=== PATIENT | male | born 1975 | race Caucasian/White ===

== ENCOUNTER 2020-06-18 08:43 | Outpatient (REF) | payer BC, SELFPAY ==
[2020-06-18 09:58] LABS: MANUAL DIFF FLAG NO
[2020-06-18 10:04] LABS: Basophils Percent Auto 0.4 % (0-2); Eosinophils Absolute Auto 0.1 X10*3/uL (0.0-0.4); Eosinophils Percent Auto 1.8 % (0-4); Hemoglobin 16.7 g/dl (14.0-18.0); Imm Gran Abs Auto 0.01 X10*3/uL (0.00-0.03); Imm Gran Pct Auto 0.2 % (0.0-0.4); Lymphocytes Absolute Auto 1.8 X10*3/uL (1.2-4.9); Lymphocytes Percent Auto 35.8 % (20-40); Mean Corpuscular HGB Conc 34.1 g/dl (31.0-36.0); Mean Corpuscular Hemoglobin 28.9 pg (27.0-33.0); Mean Corpuscular Volume 84.8 fL (80-98); Mean Platelet Volume 11.3 fL (9.4-12.4); Monocytes Absolute Auto 0.4 X10*3/uL (0.1-1.2); Monocytes Percent Auto 8.2 % (2-11); Neutrophils Absolute Auto 2.6 X10*3/uL (2.0-8.3); Neutrophils Percent Auto 53.6 % (45-73); Platelet Count 220 X10*3/uL (160-400); Red Blood Count 5.78 X10*6/uL (4.60-5.80); Red Cell Distribution Width 12.7 % (11.0-16.0); White Blood Count 4.9 X10*3/uL (4.8-10.8)
[2020-06-18 10:15] LABS: Estimated Average Glucose 163 mg/dL; Hemoglobin A1c % 7.3 %
[2020-06-18 10:28] LABS: Alanine Aminotransferase 34 U/L (0-40); Albumin Level 4.3 g/dL (3.5-5.0); Alkaline Phosphatase 82 U/L (39-117); Anion Gap 13 (12-20); Aspartate Amino Transferase 19 U/L (5-37); Bilirubin Total 0.9 mg/dL (0.0-1.0); Blood Urea Nitrogen 15 mg/dL (9-16); Calcium 8.9 mg/dL (8.4-10.2); Carbon Dioxide 22 mmol/L (22-29); Chloride 108 mmol/L (96-108); Cholesterol 179 mg/dL; Estimated Glomerular Filt Rate > 60; Glucose Fasting 156 mg/dL (60-99); HDL Cholesterol 25 mg/dL; LDL Cholesterol Calculated 122 mg/dl; Potassium 4.4 mmol/l (3.3-5.1); Sodium 139 mmol/L (135-145); Total Protein 6.6 g/dL (6.5-8.0); Triglycerides 161 mg/dL
[2020-06-18 10:52] LABS: Prostate Specific Antigen 1.35 ng/mL (<0.05-4.0); Vitamin D 25-OH Total 13.2 ng/mL (>30)
[2020-06-23 11:17] LABS: Testosterone, Free 80.5 pg/mL (35.0-155.0); Testosterone, Total 371 ng/dL (250-1100)
== END 2020-06-18 08:44 | disposition home or self-care (01) ==
LOC: HO.LAB 08:43
PROVIDERS: PCP Internal Medicine Medical Oncology; Visit Provider Internal Medicine Medical Oncology
DX: E66.3 Overweight (principal); I10 Essential (primary) hypertension; R73.03 Prediabetes
CPT/HCPCS: 36415; 80053; 80061; 82306; 83036; 84153; 84402; 84403; 85025

== ENCOUNTER → 2020-08-31 15:21 | Outpatient (BNVA) | payer BC, SELFPAY | PROVIDERS: PCP Internal Medicine Medical Oncology; Visit Provider Nurse Practitioner ==

== ENCOUNTER 2020-10-08 09:25 | Outpatient (REF) | payer BC, SELFPAY ==
[2020-10-08 10:03] LABS: MANUAL DIFF FLAG NO
[2020-10-08 10:11] LABS: Basophils Percent Auto 0.4 % (0-2); Eosinophils Absolute Auto 0.1 X10*3/uL (0.0-0.4); Hemoglobin 16.5 g/dl (14.0-18.0); Imm Gran Abs Auto 0.01 X10*3/uL (0.00-0.03); Imm Gran Pct Auto 0.2 % (0.0-0.4); Lymphocytes Absolute Auto 1.9 X10*3/uL (1.2-4.9); Lymphocytes Percent Auto 39.2 % (20-40); Mean Corpuscular HGB Conc 33.7 g/dl (31.0-36.0); Mean Corpuscular Hemoglobin 28.8 pg (27.0-33.0); Mean Corpuscular Volume 85.5 fL (80-98); Mean Platelet Volume 10.6 fL (9.4-12.4); Monocytes Absolute Auto 0.4 X10*3/uL (0.1-1.2); Monocytes Percent Auto 8.6 % (2-11); Neutrophils Absolute Auto 2.4 X10*3/uL (2.0-8.3); Neutrophils Percent Auto 50.6 % (45-73); Platelet Count 237 X10*3/uL (160-400); Red Blood Count 5.73 X10*6/uL (4.60-5.80); Red Cell Distribution Width 12.6 % (11.0-16.0); White Blood Count 4.8 X10*3/uL (4.8-10.8)
[2020-10-08 10:31] LABS: Alanine Aminotransferase 32 U/L (0-40); Albumin Level 4.4 g/dL (3.5-5.0); Alkaline Phosphatase 76 U/L (39-117); Anion Gap 11 (12-20); Aspartate Amino Transferase 21 U/L (5-37); Bilirubin Total 0.7 mg/dL (0.0-1.0); Blood Urea Nitrogen 15 mg/dL (9-16); Carbon Dioxide 25 mmol/L (22-29); Chloride 109 mmol/L (96-108); Cholesterol 157 mg/dL; Estimated Average Glucose 134 mg/dL; Estimated Glomerular Filt Rate > 60; Glucose Fasting 135 mg/dL (60-99); HDL Cholesterol 28 mg/dL; Hemoglobin A1c % 6.3 %; LDL Cholesterol Calculated 98 mg/dl; Sodium 141 mmol/L (135-145); Total Protein 6.9 g/dL (6.5-8.0); Triglycerides 159 mg/dL
== END 2020-10-08 09:26 | disposition home or self-care (01) ==
LOC: HO.LAB 09:25
PROVIDERS: PCP Internal Medicine Medical Oncology; Referring Provider Nurse Practitioner; Visit Provider Internal Medicine Medical Oncology
DX: I10 Essential (primary) hypertension (principal); E66.9 Obesity, unspecified; E11.9 Type 2 diabetes mellitus without complications; K21.9 Gastro-esophageal reflux disease without esophagitis
CPT/HCPCS: 36415; 80053; 80061; 83036; 85025; 87338

== ENCOUNTER 2020-10-20 12:04 | Outpatient (REF) | payer BC, SELFPAY | END 2020-10-20 12:05 | disposition home or self-care (01) | LOC: HO.LAB 12:04 | PROVIDERS: PCP Internal Medicine Medical Oncology; Visit Provider Internal Medicine | DX: Z20.822 Contact with and (suspected) exposure to COVID-19 (principal) | CPT/HCPCS: 36415; C9803; U0003; U0005 ==

== ENCOUNTER 2021-01-11 06:08 | Outpatient (REF) | payer BC, SELFPAY ==
[2021-01-11 06:50] LABS: MANUAL DIFF FLAG NO
[2021-01-11 06:58] LABS: Basophils Percent Auto 0.3 % (0-2); Eosinophils Absolute Auto 0.1 X10*3/uL (0.0-0.4); Eosinophils Percent Auto 1.3 % (0-4); Hemoglobin 16.2 g/dl (14.0-18.0); Imm Gran Abs Auto 0.02 X10*3/uL (0.00-0.03); Imm Gran Pct Auto 0.3 % (0.0-0.4); Lymphocytes Absolute Auto 2.5 X10*3/uL (1.2-4.9); Lymphocytes Percent Auto 38.8 % (20-40); Mean Corpuscular HGB Conc 33.8 g/dl (31.0-36.0); Mean Corpuscular Hemoglobin 28.6 pg (27.0-33.0); Mean Corpuscular Volume 84.7 fL (80-98); Mean Platelet Volume 11.1 fL (9.4-12.4); Monocytes Absolute Auto 0.6 X10*3/uL (0.1-1.2); Monocytes Percent Auto 8.7 % (2-11); Neutrophils Absolute Auto 3.2 X10*3/uL (2.0-8.3); Neutrophils Percent Auto 50.6 % (45-73); Platelet Count 229 X10*3/uL (160-400); Red Blood Count 5.67 X10*6/uL (4.60-5.80); White Blood Count 6.3 X10*3/uL (4.8-10.8)
[2021-01-11 07:11] LABS: Alanine Aminotransferase 32 U/L (0-40); Albumin Level 4.2 g/dL (3.5-5.0); Alkaline Phosphatase 78 U/L (39-117); Anion Gap 10 (12-20); Aspartate Amino Transferase 20 U/L (5-37); Bilirubin Total 0.6 mg/dL (0.0-1.0); Blood Urea Nitrogen 14 mg/dL (9-16); Calcium 9.1 mg/dL (8.4-10.2); Carbon Dioxide 26 mmol/L (22-29); Chloride 108 mmol/L (96-108); Cholesterol 150 mg/dL; Estimated Glomerular Filt Rate > 60; Glucose Fasting 164 mg/dL (60-99); HDL Cholesterol 27 mg/dL; LDL Cholesterol Calculated 79 mg/dl; Potassium 4.1 mmol/L (3.3-5.1); Sodium 140 mmol/L (135-145); Total Protein 6.4 g/dL (6.5-8.0); Triglycerides 221 mg/dL
[2021-01-11 07:13] LABS: Estimated Average Glucose 148 mg/dL; Hemoglobin A1c % 6.8 %
== END 2021-01-11 06:09 | disposition home or self-care (01) ==
LOC: HO.LAB 06:08
PROVIDERS: PCP Internal Medicine Medical Oncology; Visit Provider Internal Medicine Medical Oncology
DX: I10 Essential (primary) hypertension (principal); E66.9 Obesity, unspecified; E11.9 Type 2 diabetes mellitus without complications
CPT/HCPCS: 36415; 80053; 80061; 83036; 85025

== ENCOUNTER 2021-04-15 07:59 | Outpatient (REF) | payer BC, SELFPAY ==
[2021-04-15 08:45] LABS: MANUAL DIFF FLAG NO
[2021-04-15 09:00] LABS: Basophils Percent Auto 0.2 % (0-2); Eosinophils Absolute Auto 0.1 X10*3/uL (0.0-0.4); Eosinophils Percent Auto 1.5 % (0-4); Hematocrit 48.2 % (42-52); Hemoglobin 16.2 g/dl (14.0-18.0); Imm Gran Abs Auto 0.01 X10*3/uL (0.00-0.03); Imm Gran Pct Auto 0.2 % (0.0-0.4); Lymphocytes Absolute Auto 1.9 X10*3/uL (1.2-4.9); Lymphocytes Percent Auto 40.2 % (20-40); Mean Corpuscular HGB Conc 33.6 g/dl (31.0-36.0); Mean Corpuscular Hemoglobin 28.7 pg (27.0-33.0); Mean Corpuscular Volume 85.5 fL (80-98); Monocytes Absolute Auto 0.4 X10*3/uL (0.1-1.2); Monocytes Percent Auto 9.2 % (2-11); Neutrophils Absolute Auto 2.3 X10*3/uL (2.0-8.3); Neutrophils Percent Auto 48.7 % (45-73); Platelet Count 220 X10*3/uL (160-400); Red Blood Count 5.64 X10*6/uL (4.60-5.80); Red Cell Distribution Width 12.8 % (11.0-16.0); White Blood Count 4.8 X10*3/uL (4.8-10.8)
[2021-04-15 09:19] LABS: Estimated Average Glucose 180 mg/dL; Hemoglobin A1c % 7.9 %
[2021-04-15 09:30] LABS: Alanine Aminotransferase 42 U/L (0-40); Albumin Level 4.3 g/dL (3.5-5.0); Alkaline Phosphatase 79 U/L (39-117); Anion Gap 10 (12-20); Aspartate Amino Transferase 22 U/L (5-37); Bilirubin Total 0.8 mg/dL (0.0-1.0); Blood Urea Nitrogen 17 mg/dL (9-16); Calcium 9.2 mg/dL (8.4-10.2); Carbon Dioxide 24 mmol/L (22-29); Chloride 110 mmol/L (96-108); Cholesterol 157 mg/dL; Estimated Glomerular Filt Rate > 60; Glucose Fasting 175 mg/dL (60-99); HDL Cholesterol 28 mg/dL; LDL Cholesterol Calculated 94 mg/dl; Potassium 4.3 mmol/L (3.3-5.1); Sodium 140 mmol/L (135-145); Total Protein 6.7 g/dL (6.5-8.0); Triglycerides 178 mg/dL
[2021-04-15 09:44] LABS: Prostate Specific Antigen 0.97 ng/mL (<0.05-4.0)
[2021-04-15 16:49] LABS: Creatinine Urine 182.87 mg/dL; Microalbum/Creatinine Ratio Ur 3.2 ug/mg cr
== END 2021-04-15 08:00 | disposition home or self-care (01) ==
LOC: HO.LAB 07:59
PROVIDERS: PCP Internal Medicine Medical Oncology; Visit Provider Internal Medicine Medical Oncology
DX: Z12.5 Encounter for screening for malignant neoplasm of prostate (principal); E11.9 Type 2 diabetes mellitus without complications; N40.0 Benign prostatic hyperplasia without lower urinary tract symptoms; I10 Essential (primary) hypertension
CPT/HCPCS: 36415; 80053; 80061; 82043; 83036; 84153; 85025

== ENCOUNTER → 2021-05-20 14:21 | Outpatient (BNVA) | payer BC, SELFPAY | PROVIDERS: PCP Internal Medicine Medical Oncology; Visit Provider Nurse Practitioner ==

== ENCOUNTER 2021-08-19 06:38 | Outpatient (REF) | payer BC, SELFPAY ==
[2021-08-19 06:43] LABS: MANUAL DIFF FLAG NO
[2021-08-19 07:49] LABS: Basophils Percent Auto 0.4 % (0-2); Eosinophils Absolute Auto 0.1 X10*3/uL (0.0-0.4); Eosinophils Percent Auto 1.6 % (0-4); Hematocrit 47.6 % (42.0-52.0); Hemoglobin 15.8 g/dl (14.0-18.0); Imm Gran Abs Auto 0.02 X10*3/uL (0.00-0.03); Imm Gran Pct Auto 0.4 % (0.0-0.4); Lymphocytes Absolute Auto 2.1 X10*3/uL (1.2-4.9); Lymphocytes Percent Auto 36.9 % (20-40); Mean Corpuscular HGB Conc 33.2 g/dl (31.0-36.0); Mean Corpuscular Hemoglobin 28.7 pg (27.0-33.0); Mean Corpuscular Volume 86.4 fL (80.0-98.0); Monocytes Absolute Auto 0.5 X10*3/uL (0.1-1.2); Neutrophils Percent Auto 52.7 % (45-73); Platelet Count 239 X10*3/uL (160-400); Red Blood Count 5.51 X10*6/uL (4.60-5.80); Red Cell Distribution Width 12.9 % (11.0-16.0); White Blood Count 5.7 X10*3/uL (4.8-10.8)
[2021-08-19 08:24] LABS: Estimated Average Glucose 197 mg/dL; Hemoglobin A1c % 8.5 %
[2021-08-19 08:25] LABS: Creatinine Urine 175.47 mg/dL; Microalbum/Creatinine Ratio Ur 3.4 ug/mg cr
[2021-08-19 08:30] LABS: Alanine Aminotransferase 39 U/L (0-40); Albumin Level 4.2 g/dL (3.5-5.0); Alkaline Phosphatase 81 U/L (39-117); Anion Gap 11 (12-20); Aspartate Amino Transferase 20 U/L (5-37); Bilirubin Total 0.3 mg/dL (0.0-1.0); Blood Urea Nitrogen 15 mg/dL (9-16); Calcium 9.3 mg/dL (8.4-10.2); Carbon Dioxide 25 mmol/L (22-29); Chloride 108 mmol/L (96-108); Cholesterol 155 mg/dL; Estimated Glomerular Filt Rate > 60; Glucose Fasting 208 mg/dL (60-99); HDL Cholesterol 28 mg/dL; LDL Cholesterol Calculated 79 mg/dl; Potassium 4.3 mmol/L (3.3-5.1); Sodium 140 mmol/L (135-145); Total Protein 6.6 g/dL (6.5-8.0); Triglycerides 244 mg/dL
== END 2021-08-19 06:39 | disposition home or self-care (01) ==
LOC: HO.LAB 06:38
PROVIDERS: PCP Internal Medicine Medical Oncology; Visit Provider Internal Medicine Medical Oncology
DX: I10 Essential (primary) hypertension (principal); E66.9 Obesity, unspecified; E11.9 Type 2 diabetes mellitus without complications
CPT/HCPCS: 36415; 80053; 80061; 82043; 83036; 85025

== ENCOUNTER 2021-08-30 09:10 | Day surgery (SDC) | payer BC, SELFPAY ==
--- NOTE | 2021-08-29 12:50 | HO.ANESPROP2 ---
Documented by User: Rain Hemphill NP 08/29/21 12:51 HPI - Anesthesia Eval Consult details Narrative: 45yo M for Upper Endoscopy PMF Active Problems Active Problems: All Active Problems (Updated 08/24/21 @ 10:19 by Pau Peralta RN) GERD (gastroesophageal reflux disease) (Acute) Past Medical History Medical History (Updated 08/24/21 @ 10:19 by Pau Peralta RN) Diabetes Elevated cholesterol GERD (gastroesophageal reflux disease) Family History Family History Family/Other No significant medical problems Surgical History Surgical History (Updated 08/24/21 @ 10:22 by Pau Peralta RN) History of ankle surgery Hx of cholecystectomy Hx of knee surgery Social History Social History Alcohol intake: current Alcohol intake frequency: holidays/special occasions only Patient Tobacco Use Status: Current everyday Tobacco user Tobacco use type: Cigarette Cigarettes Per Day: 10 Meds Allergies Allergy/AdvReac Type Severity Reaction Status Date / Time No Known Allergies Allergy Verified 05/20/21 14:32 [No Known Allergies*] Home Medications Medication Instructions Recorded Confirmed Last Taken Type atorvastatin 10 mg tablet 10 mg PO DAILY 05/20/21 08/24/21 Unknown History glyburide 5 mg tablet 5 mg PO BID 05/20/21 08/24/21 Unknown History lisinopril 20 mg tablet 20 mg PO DAILY 05/20/21 08/24/21 Unknown History loratadine 10 mg tablet (Claritin) 10 mg PO DAILY 05/20/21 08/24/21 Unknown History metformin 1,000 mg tablet 1,000 mg PO DAILY 05/20/21 08/24/21 Unknown History sildenafil 100 mg tablet mg PO DIRECTED 05/20/21 Unknown History Exam Exam Date and Time: August 29, 2021 1250 Pertinent Lab Results Pertinent Lab Results: Laboratory Tests 08/19/21 08/19/21 06:42 06:42 WBC 5.7 Hgb 15.8 Hct 47.6 Plt Count 239 Sodium 140 Potassium 4.3 Chloride 108 Carbon Dioxide 25 BUN 15 Creatinine 1.04 Assessment and Plan Assessment Anesthesia Assessment: Chart Reviewed Documented by User: Jose Mcdaniel MD 08/30/21 14:32 [facility] Past Medical History Medical History (Updated 08/24/21 @ 10:19 by Pau Peralta RN) Diabetes Elevated cholesterol GERD (gastroesophageal reflux disease) Family History Family History Family/Other No significant medical problems Family history of problems with anesthesia: No Surgical History Surgical History (Updated 08/24/21 @ 10:22 by Pau Peralta RN) History of ankle surgery Hx of cholecystectomy Hx of knee surgery History of Problems with Anesthesia: No Social History Social History Alcohol intake: current Alcohol intake frequency: holidays/special occasions only Patient Tobacco Use Status: Current everyday Tobacco user Tobacco use type: Cigarette Cigarettes Per Day: 10 Meds Allergies Allergy/AdvReac Type Severity Reaction Status Date / Time No Known Allergies Allergy Verified 05/20/21 14:32 [No Known Allergies*] Home Medications Medication Instructions Recorded Confirmed Last Taken Type atorvastatin 10 mg tablet 10 mg PO DAILY 05/20/21 08/24/21 Unknown History glyburide 5 mg tablet 5 mg PO BID 05/20/21 08/24/21 Unknown History lisinopril 20 mg tablet 20 mg PO DAILY 05/20/21 08/24/21 Unknown History loratadine 10 mg tablet (Claritin) 10 mg PO DAILY 05/20/21 08/24/21 Unknown History metformin 1,000 mg tablet 1,000 mg PO DAILY 05/20/21 08/24/21 Unknown History sildenafil 100 mg tablet mg PO DIRECTED 05/20/21 Unknown History Exam Airway Mallampati Class: III TM Dist: >3cm Neck ROM: Full Loose/Missing/Broken Teeth: Yes Assessment and Plan Assessment Anesthesia Assessment: Anesthesia Plan Discussed Final Anesthetic Review Family History of Problems with Anesthesia: No History of Problems with Anesthesia: No NPO: Yes ASA Class: II Final Preanesthetic Review: No Changes in Pt Med Stat, Meds/Allgs Chart Reviewed, Consent Obtained/Reviewed and Anes Risks/Benef Reviewed Patient Risk: Low Procedure Risk: Low Anesthetic Plan Anesthetic Plan: MAC: Disposition: Standard PACU
[2021-08-30 09:19] VITALS: BP 124/78; PULSE 74; RESP 18; TEMP 36.6; O2SAT 98; BMI 36.0
[2021-08-30 09:25] LABS: Glucose, Whole Blood 139 mg/dL (60-115)
--- NOTE | 2021-08-30 09:32 | MHC.SHP ---
Pre-Procedural Eval Section A Date of Service: 08/30/21 Section B Chief Complaint: reflux disease Relevant Family History (Specify if Yes): No Relevant Social History: Tobacco Use Present Medications: see Short Stay Collaborative assessment Medical History: Significant History (Diabetes Elevated cholesterol GERD (gastroesophageal reflux disease)) History of Previous Operations: Relevant previous surgery/procedure and date(s) (History of ankle surgery Hx of cholecystectomy Hx of knee surgery) Allergies: Allergies Allergy/AdvReac Type Severity Reaction Status Date / Time No Known Allergies Allergy Verified 05/20/21 14:32 [No Known Allergies*] Review of Systems Sugical H&P ROS: Negative: Constitution, Cardiovascular, Respiratory, Neurological, Psychiatric, Hem-Onc, Allergic/Immunologic, Gastrointestinal, Genitourinary, Musculoskeletal, Integumentary, Endocrine and Eyes/Ears/Nose/Throat Exam Surgical H&P Exam: Normal: HEENT, Normal: Heart, Normal: Lungs, Normal: Extremities, Normal: Abdomen, Normal: Skin and Normal: Neurological Plan Diagnosis/Plan: Unchanged I have reviewed the history and physical and performed a pertinent physical examination on my patient. No changes have occurred unless specified.
[2021-08-30] MEDS: Lactated Ringers 1,000 ML 100 ML IVCONT (09:35)
--- NOTE | 2021-08-30 10:33 | PM.OP ---
Brief Operative Note Date of Service: 08/30/21 Pre-op diagnosis: reflux Post-op diagnosis: same Procedure: see op note Surgeon: Fanny Garcia MD Anesthesia: MAC Was an Camera Systems Engineer used for this Procedure?: No Estimated blood loss (mL): 0 Condition: stable Disposition: PACU
--- NOTE | 2021-08-30 10:33 | W.PM.OPN ---
Operative Note Operative Note Date of Service: 08/30/21 Narrative: Procedure Description: EGD FLEXIBLE TRANSORAL UPPER GASTROINTESTINAL ENDOSCOPY UPPER ENDOSCOPY Consent: Indications for the procedure and potential complications of bleeding, perforation, reaction to medications and missed diagnosis were discussed with the patient and informed consent was obtained. Instrument: Olympus GIF H 190 J mid size upper endoscope Monitoring: Vital signs and clinical assessment, continuous EKG monitoring, Pulse oximetry, Carbon Dioxide monitoring and blood pressure monitoring were done throughout the procedure. Procedure: The patient was placed in the left lateral decubitis position and pre-procedure medications were administered and a bite block was placed. The endoscope was inserted into the mouth and advanced under direct vision to the third part of duodenum. A careful inspection was made as the upper endoscope was withdrawn including a retroflexed examination of the proximal stomach; Findings and interventions are described below. Findings: Larynx:normal Esophagus: GE junction at 40 cm, diaphragm hiatus at 40 cm, LA grade C esophagitis with boggy and swollen GEJ with streaky erosions in lower esophagus --bx taken of GEJ and random esophagus in separate jars . small esophageal inlet patch noted. Stomach: Patchy gastric erythema. Biopsies were obtained. Grade 2 flap valve on retroflexed examination of the cardia. Duodenum: Patchy erythema in bulb and descending duodenum, bx taken Intervention: Biopsies as noted above Impression/Findings: LA grade C erosive esophagitis esophageal inlet patch gastritis duodenitis PLAN: smoking cessation reflux precautions trial of PPI if he agrees repeat EGD in 3-6 months after being on PPI if he agrees
[2021-08-30 10:40] VITALS: BP 107/63; PULSE 73; RESP 16; TEMP 36.4; O2SAT 99
[2021-08-30 10:55] VITALS: BP 111/66; PULSE 85; RESP 16; TEMP 36.4; O2SAT 97
== END 2021-08-30 12:15 | disposition home or self-care (01) ==
PROVIDERS: PCP Internal Medicine Medical Oncology; Visit Provider Internal Medicine Gastroenterology
PROC: 0DJ08ZZ Inspection of Upper Intestinal Tract, Via Natural or Artificial Opening Endoscopic (ICD-10-PCS; CPT 43235; principal; 2021-08-30 11:50)
DX: K21.9 Gastro-esophageal reflux disease without esophagitis (principal); K20.80 Other esophagitis without bleeding; K29.50 Unspecified chronic gastritis without bleeding; K29.80 Duodenitis without bleeding; K44.9 Diaphragmatic hernia without obstruction or gangrene; Q39.8 Other congenital malformations of esophagus; E78.00 Pure hypercholesterolemia, unspecified; E11.9 Type 2 diabetes mellitus without complications; Z79.84 Long term (current) use of oral hypoglycemic drugs; Z79.899 Other long term (current) drug therapy; Z90.49 Acquired absence of other specified parts of digestive tract; F17.210 Nicotine dependence, cigarettes, uncomplicated
CPT/HCPCS: 43239; 82947; 88305; 88342

== ENCOUNTER → 2021-09-13 14:26 | Outpatient (BNVA) | payer BC, SELFPAY | PROVIDERS: PCP Internal Medicine Medical Oncology; Visit Provider Nurse Practitioner ==

== ENCOUNTER 2021-10-21 08:47 | Outpatient (REF) | payer BC, SELFPAY ==
[2021-10-21 09:07] LABS: MANUAL DIFF FLAG NO
[2021-10-21 09:20] LABS: Basophils Percent Auto 0.4 % (0-2); Eosinophils Percent Auto 0.8 % (0-4); Hematocrit 48.4 % (42.0-52.0); Imm Gran Abs Auto 0.01 X10*3/uL (0.00-0.03); Imm Gran Pct Auto 0.2 % (0.0-0.4); Lymphocytes Absolute Auto 1.9 X10*3/uL (1.2-4.9); Lymphocytes Percent Auto 40.3 % (20-40); Mean Corpuscular HGB Conc 33.1 g/dl (31.0-36.0); Mean Corpuscular Hemoglobin 28.2 pg (27.0-33.0); Mean Corpuscular Volume 85.4 fL (80.0-98.0); Mean Platelet Volume 10.5 fL (9.4-12.4); Monocytes Absolute Auto 0.4 X10*3/uL (0.1-1.2); Monocytes Percent Auto 7.8 % (2-11); Neutrophils Absolute Auto 2.4 x10*3/uL (2.0-8.3); Neutrophils Percent Auto 50.5 % (45-73); Platelet Count 235 X10*3/uL (160-400); Red Blood Count 5.67 X10*6/uL (4.60-5.80); Red Cell Distribution Width 12.8 % (11.0-16.0); White Blood Count 4.8 X10*3/uL (4.8-10.8)
[2021-10-21 09:34] LABS: Estimated Average Glucose 171 mg/dL; Hemoglobin A1c % 7.6 %
[2021-10-21 09:52] LABS: Alanine Aminotransferase 42 U/L (0-40); Albumin Level 4.3 g/dL (3.5-5.0); Alkaline Phosphatase 74 U/L (39-117); Anion Gap 12 (12-20); Aspartate Amino Transferase 20 U/L (5-37); Bilirubin Total 0.7 mg/dL (0.0-1.0); Blood Urea Nitrogen 17 mg/dL (9-16); Calcium 9.5 mg/dL (8.4-10.2); Carbon Dioxide 24 mmol/L (22-29); Chloride 109 mmol/L (96-108); Cholesterol 166 mg/dL; Estimated Glomerular Filt Rate > 60; Glucose Random 193 mg/dL (60-115); HDL Cholesterol 25 mg/dL; LDL Cholesterol Calculated 108 mg/dl; Potassium 4.5 mmol/L (3.3-5.1); Sodium 140 mmol/L (135-145); Total Protein 6.9 g/dL (6.5-8.0); Triglycerides 167 mg/dL
== END 2021-10-21 08:48 | disposition home or self-care (01) ==
LOC: HO.LAB 08:47
PROVIDERS: PCP Internal Medicine Medical Oncology; Visit Provider Internal Medicine Medical Oncology
DX: I10 Essential (primary) hypertension (principal); E66.9 Obesity, unspecified; E11.9 Type 2 diabetes mellitus without complications
CPT/HCPCS: 36415; 80053; 80061; 83036; 85025

== ENCOUNTER → 2021-12-13 14:51 | Outpatient (BNVA) | payer BC, SELFPAY | PROVIDERS: PCP Internal Medicine Medical Oncology; Visit Provider Nurse Practitioner | DX: K21.9 Gastro-esophageal reflux disease without esophagitis (principal) ==

== ENCOUNTER 2022-02-24 11:22 | Outpatient (REF) | payer BC, SELFPAY ==
[2022-02-24 11:34] LABS: MANUAL DIFF FLAG NO
[2022-02-24 12:08] LABS: Basophils Percent Auto 0.4 % (0-2); Eosinophils Absolute Auto 0.1 X10*3/uL (0.0-0.4); Eosinophils Percent Auto 2.2 % (0-4); Hematocrit 46.5 % (42.0-52.0); Hemoglobin 15.9 g/dl (14.0-18.0); Imm Gran Abs Auto 0.01 X10*3/uL (0.00-0.03); Imm Gran Pct Auto 0.2 % (0.0-0.4); Lymphocytes Percent Auto 44.7 % (20-40); Mean Corpuscular HGB Conc 34.2 g/dl (31.0-36.0); Mean Corpuscular Hemoglobin 28.5 pg (27.0-33.0); Mean Corpuscular Volume 83.3 fL (80.0-98.0); Mean Platelet Volume 10.7 fL (9.4-12.4); Monocytes Absolute Auto 0.4 X10*3/uL (0.1-1.2); Monocytes Percent Auto 8.3 % (2-11); Neutrophils Percent Auto 44.2 % (45-73); Platelet Count 238 X10*3/uL (160-400); Red Blood Count 5.58 X10*6/uL (4.60-5.80); White Blood Count 4.5 X10*3/uL (4.8-10.8)
[2022-02-24 12:18] LABS: Estimated Average Glucose 169 mg/dL; Hemoglobin A1c % 7.5 %
[2022-02-24 12:31] LABS: Alanine Aminotransferase 76 U/L (0-40); Albumin Level 4.2 g/dL (3.5-5.0); Alkaline Phosphatase 75 U/L (39-117); Anion Gap 13 (12-20); Aspartate Amino Transferase 33 U/L (5-37); Bilirubin Total 0.7 mg/dL (0.0-1.0); Blood Urea Nitrogen 15 mg/dL (9-16); Calcium 8.9 mg/dL (8.4-10.2); Carbon Dioxide 24 mmol/L (22-29); Chloride 105 mmol/L (96-108); Cholesterol 150 mg/dL; Estimated Glomerular Filt Rate > 60; Glucose Fasting 135 mg/dL (60-99); HDL Cholesterol 26 mg/dL; LDL Cholesterol Calculated 85 mg/dl; Potassium 4.4 mmol/L (3.3-5.1); Sodium 138 mmol/L (135-145); Total Protein 6.7 g/dL (6.5-8.0); Triglycerides 197 mg/dL
[2022-02-24 15:12] LABS: Microalbum/Creatinine Ratio Ur 5.9 ug/mg cr
== END 2022-02-24 11:23 | disposition home or self-care (01) ==
LOC: HO.LAB 11:22
PROVIDERS: PCP Internal Medicine Medical Oncology; Visit Provider Internal Medicine Medical Oncology
DX: I10 Essential (primary) hypertension (principal); E11.9 Type 2 diabetes mellitus without complications
CPT/HCPCS: 36415; 80053; 80061; 82043; 83036; 85025

== ENCOUNTER 2022-04-11 08:48 | Day surgery (SDC) | payer BC, OTHER, SELFPAY ==
[2022-04-05 19:35] VITALS: BMI 35.4
--- NOTE | 2022-04-10 11:46 | P.CONAN_ITS ---
Documented by User: Rain Hemphill NP 04/10/22 11:52 HPI - Anesthesia Eval Consult details Narrative: 46yo M for Upper Endoscopy s/p EGD 08/2021 with MAC COUNT INCLUDES [facility] Active Problems Active Problems: All Active Problems (Updated 04/05/22 @ 19:35 by Demetra Acosta RN) GERD (gastroesophageal reflux disease) (Acute) Erosive esophagitis (Acute) Past Medical History Medical History Diabetes Elevated cholesterol GERD (gastroesophageal reflux disease) Hypertension Family History Family History Family/Other No significant medical problems Family history of problems with anesthesia: No Surgical History Surgical History History of ankle surgery Hx of cholecystectomy Hx of knee surgery History of Problems with Anesthesia: No Social History Social History Alcohol intake: current Alcohol intake frequency: holidays/special occasions only Patient Tobacco Use Status: Current everyday Tobacco user Tobacco use type: Cigarette Cigarette Packs Per Day: 0.5 Cigarettes Per Day: 10.0 Years Smoked: 28 Smoked in Last 30 Days: Yes Use of substances other than those prescribed or required for medical reasons: No Are you DNR?: No Advance Directives: No Advance Directives Information Provided: Yes Advance Directives on File: No Recently lost weight without trying: No Nutrition Risks: No Nutritional Risk Meds Allergies Allergy/AdvReac Type Severity Reaction Status Date / Time No Known Allergies Allergy Verified 04/11/22 09:16 [No Known Allergies*] Home Medications Medication Instructions Recorded Confirmed Last Taken Type atorvastatin 10 mg tablet 10 mg PO DAILY 05/20/21 04/05/22 Unknown History lisinopril 20 mg tablet 20 mg PO DAILY 05/20/21 04/05/22 Unknown History loratadine 10 mg tablet (Claritin) 10 mg PO DAILY 05/20/21 04/05/22 Unknown History ciclopirox 0.77 % topical cream 1 appl topical DAILY 12/13/21 04/05/22 Unknown History glyburide 5 mg tablet 5 mg PO BID 12/13/21 04/05/22 Unknown History tamsulosin 0.4 mg capsule 0.4 mg PO DAILY 12/13/21 04/05/22 Unknown History dapagliflozin 5 mg-metformin ER 1 tab PO DAILY 04/05/22 04/05/22 Unknown History 1,000 mg tablet,extended release 24hr (Xigduo XR) tadalafil 5 mg tablet (Cialis) 5 mg PO DAILY 04/05/22 04/05/22 Unknown History Exam Exam Date and Time: April 10, 2022 1146 Height,Weight and Vital Signs: Height 5 ft 7 in Weight 102.512 kg Pertinent Lab Results Pertinent Lab Results: Laboratory Tests 02/24/22 02/24/22 11:33 11:33 WBC 4.5 L Hgb 15.9 Hct 46.5 Plt Count 238 Sodium 138 Potassium 4.4 Chloride 105 Carbon Dioxide 24 BUN 15 Creatinine 0.93 Assessment and Plan Assessment Anesthesia Assessment: Chart Reviewed Final Anesthetic Review Family History of Problems with Anesthesia: No History of Problems with Anesthesia: No Documented by User: Viji Rasmussen MD 04/11/22 09:50 PMFSH Past Medical History Medical History Diabetes Elevated cholesterol GERD (gastroesophageal reflux disease) Hypertension Family History Family History Family/Other No significant medical problems Surgical History Surgical History History of ankle surgery Hx of cholecystectomy Hx of knee surgery Social History Social History Alcohol intake: current Alcohol intake frequency: holidays/special occasions only Patient Tobacco Use Status: Current everyday Tobacco user Tobacco use type: Cigarette Cigarette Packs Per Day: 0.5 Cigarettes Per Day: 10.0 Years Smoked: 28 Smoked in Last 30 Days: Yes Use of substances other than those prescribed or required for medical reasons: No Are you DNR?: No Advance Directives: No Advance Directives Information Provided: Yes Advance Directives on File: No Recently lost weight without trying: No Nutrition Risks: No Nutritional Risk Meds Allergies Allergy/AdvReac Type Severity Reaction Status Date / Time No Known Allergies Allergy Verified 04/11/22 09:16 [No Known Allergies*] Home Medications Medication Instructions Recorded Confirmed Last Taken Type atorvastatin 10 mg tablet 10 mg PO DAILY 05/20/21 04/05/22 Unknown History lisinopril 20 mg tablet 20 mg PO DAILY 05/20/21 04/05/22 Unknown History loratadine 10 mg tablet (Claritin) 10 mg PO DAILY 05/20/21 04/05/22 Unknown History ciclopirox 0.77 % topical cream 1 appl topical DAILY 12/13/21 04/05/22 Unknown History glyburide 5 mg tablet 5 mg PO BID 12/13/21 04/05/22 Unknown History tamsulosin 0.4 mg capsule 0.4 mg PO DAILY 12/13/21 04/05/22 Unknown History dapagliflozin 5 mg-metformin ER 1 tab PO DAILY 04/05/22 04/05/22 Unknown History 1,000 mg tablet,extended release 24hr (Xigduo XR) tadalafil 5 mg tablet (Cialis) 5 mg PO DAILY 04/05/22 04/05/22 Unknown History Exam Airway Mallampati Class: II TM Dist: >3cm Neck ROM: Full Loose/Missing/Broken Teeth: No Heart: RRR Lungs: CTA Assessment and Plan Assessment Anesthesia Assessment: Anesthesia Plan Discussed Final Anesthetic Review ASA Class: II Final Preanesthetic Review: Meds/Allgs Chart Reviewed, Consent Obtained/Reviewed and Anes Risks/Benef Reviewed Patient Risk: Low Procedure Risk: Intermediate Anesthetic Plan Anesthetic Plan: MAC: Disposition: Standard PACU
[2022-04-11] MEDS: Lactated Ringers 1,000 ML 100 ML IVCONT (09:31)
--- NOTE | 2022-04-11 09:33 | MHC.SHP ---
Pre-Procedural Eval Section A Date of Service: 04/11/22 Section B Chief Complaint: History of esophagitis Details of Present Illness: Hx of grade C esophagitis in Aug 2021. Here for follow up EGD to rule out underlying Mai's. Pt continues to smoke 0.5PPD. Does not take PPI. States one his doctors told him to take Pepcid for his esophagitis. Relevant Social History: Tobacco Use Medical History: Significant History (Diabetes, GERD, HTN ) History of Previous Operations: Relevant previous surgery/procedure and date(s) (History of ankle surgery Hx of cholecystectomy Hx of knee surgery) Allergies: Allergies Allergy/AdvReac Type Severity Reaction Status Date / Time No Known Allergies Allergy Verified 04/11/22 09:16 [No Known Allergies*] Review of Systems Review of Systems Comment: 10 point ROS negative unless noted above Exam Surgical H&P Exam: Normal: HEENT, Normal: Heart, Normal: Lungs, Normal: Extremities, Normal: Abdomen, Normal: Skin and Normal: Neurological Plan Diagnosis/Plan: Unchanged I have reviewed the history and physical and performed a pertinent physical examination on my patient. No changes have occurred unless specified.
[2022-04-11 09:34] LABS: Glucose, Whole Blood 151 mg/dL (60-115)
[2022-04-11 09:38] VITALS: BP 118/81; PULSE 72; RESP 18; TEMP 36.7; O2SAT 98
--- NOTE | 2022-04-11 09:49 | W.PM.OPN ---
Operative Note Operative Note Date of Service: 04/11/22 Narrative: Procedure: Esophagogastroduodenoscopy Endoscopist: Nena Riley MD Indication: Esophagitis Anesthesia Provider: Dr Viji Rasmussen MD Anesthesia Type: MAC EGD Procedure:?? The procedure, indications, preparation and potential complications were reviewed with the patient, who indicated understanding and gave written informed consent to proceed. A physical exam was performed. The endoscope was introduced through the mouth, and advanced to the second part of duodenum. The mucosa was carefully examined on slow withdrawal of the endoscope. The patient tolerated the procedure well. There were no immediate complications.? EGD Findings:? ? Esophagus:? Linear ulcerations from 35 cm to 39 cm that do not extend between the tops of mucosal folds were seen. No active bleeding. The Z line was at 39 cm. THE GEJ junction was at 40 cm. There were two nodularites noted at 39 cm with overlying villous changes examined in white light and NBI. Cold forceps biopsies were taken from the nodular region. ? Stomach:? Normal mucosa was noted in the stomach except one erosion in antrum. ? Duodenum:? Normal mucosa was noted in the whole of the examined duodenum. EGD Impressions:? ? Grade B esophagitis ? Nodularity at GEJ (biopsy) ? Normal stomach ? Normal duodenum Recommendations:?? ? Follow biopsy results. Our office will call or send a letter with results within 7-10 days. ? Will need a repeat EGD after 8-10 weeks to further eval the nodule AFTER resolution of active esophagitis. ? Patient strongly counseled for smoking cessation. ? Start PPI therapy. ? Follow up in GI office as scheduled. ? Above has been reviewed with the patient. Educational hand outs were provided at discharge.
[2022-04-11 10:19] VITALS: BP 103/81; PULSE 63; RESP 16; TEMP 36.2; O2SAT 96
[2022-04-11 10:27] LABS: Glucose, Whole Blood 118 mg/dL (60-115)
== END 2022-04-11 11:14 | disposition home or self-care (01) ==
PROVIDERS: PCP Internal Medicine Medical Oncology; Visit Provider Internal Medicine
PROC: 0DJ08ZZ Inspection of Upper Intestinal Tract, Via Natural or Artificial Opening Endoscopic (ICD-10-PCS; CPT 43235; principal; 2022-04-11 10:00)
DX: K22.10 Ulcer of esophagus without bleeding (principal); K22.82 Esophagogastric junction polyp; K21.9 Gastro-esophageal reflux disease without esophagitis; I10 Essential (primary) hypertension; E78.5 Hyperlipidemia, unspecified; E11.65 Type 2 diabetes mellitus with hyperglycemia; Z79.84 Long term (current) use of oral hypoglycemic drugs; Z79.899 Other long term (current) drug therapy; F17.210 Nicotine dependence, cigarettes, uncomplicated; Z90.49 Acquired absence of other specified parts of digestive tract
CPT/HCPCS: 43239; 82947; 88305

== ENCOUNTER 2022-05-30 08:57 | Outpatient (REF) | payer BC, SELFPAY ==
[2022-05-30 09:12] LABS: MANUAL DIFF FLAG NO
[2022-05-30 09:27] LABS: Basophils Percent Auto 0.4 % (0-2); Eosinophils Percent Auto 0.8 % (0-4); Hematocrit 50.2 % (42.0-52.0); Hemoglobin 16.8 g/dl (14.0-18.0); Imm Gran Abs Auto 0.01 X10*3/uL (0.00-0.03); Imm Gran Pct Auto 0.2 % (0.0-0.4); Lymphocytes Absolute Auto 1.9 X10*3/uL (1.2-4.9); Lymphocytes Percent Auto 36.5 % (20-40); Mean Corpuscular HGB Conc 33.5 g/dl (31.0-36.0); Mean Corpuscular Hemoglobin 28.3 pg (27.0-33.0); Mean Corpuscular Volume 84.7 fL (80.0-98.0); Mean Platelet Volume 10.1 fL (9.4-12.4); Monocytes Absolute Auto 0.3 X10*3/uL (0.1-1.2); Monocytes Percent Auto 6.3 % (2-11); Neutrophils Absolute Auto 2.9 x10*3/uL (2.0-8.3); Neutrophils Percent Auto 55.8 % (45-73); Platelet Count 247 X10*3/uL (160-400); Red Blood Count 5.93 X10*6/uL (4.60-5.80); Red Cell Distribution Width 12.9 % (11.0-16.0); White Blood Count 5.2 X10*3/uL (4.8-10.8)
[2022-05-30 09:51] LABS: Alanine Aminotransferase 41 U/L (0-40); Albumin Level 4.5 g/dL (3.5-5.0); Alkaline Phosphatase 72 U/L (39-117); Anion Gap 13 (12-20); Aspartate Amino Transferase 22 U/L (5-37); Bilirubin Total 0.5 mg/dL (0.0-1.0); Blood Urea Nitrogen 19 mg/dL (9-16); Calcium 9.7 mg/dL (8.4-10.2); Carbon Dioxide 27 mmol/L (22-29); Chloride 107 mmol/L (96-108); Cholesterol 165 mg/dL; Estimated Glomerular Filt Rate > 60; Glucose Fasting 115 mg/dL (60-99); HDL Cholesterol 31 mg/dL; LDL Cholesterol Calculated 105 mg/dl; Potassium 4.3 mmol/L (3.3-5.1); Sodium 143 mmol/L (135-145); Triglycerides 145 mg/dL
== END 2022-05-30 08:58 | disposition home or self-care (01) ==
LOC: HO.LAB 08:57
PROVIDERS: PCP Internal Medicine Medical Oncology; Visit Provider Internal Medicine Medical Oncology
DX: I10 Essential (primary) hypertension (principal); N40.0 Benign prostatic hyperplasia without lower urinary tract symptoms; E11.9 Type 2 diabetes mellitus without complications; E66.9 Obesity, unspecified
CPT/HCPCS: 36415; 80053; 80061; 85025

== ENCOUNTER → 2022-07-14 13:43 | Outpatient (BNVA) | payer BC, SELFPAY | PROVIDERS: PCP Internal Medicine Medical Oncology; Visit Provider Internal Medicine Endocrinology, Diabetes & Metabolism | DX: E11.65 Type 2 diabetes mellitus with hyperglycemia (principal); Z79.84 Long term (current) use of oral hypoglycemic drugs | CPT/HCPCS: 82947; 83036 ==

== ENCOUNTER → 2022-08-17 14:15 | Outpatient (BNVA) | payer BC, SELFPAY | PROVIDERS: PCP Internal Medicine Medical Oncology; Visit Provider Registered Nurse Diabetes Educator | DX: Z13.89 Encounter for screening for other disorder (principal) ==

== ENCOUNTER 2022-09-27 07:24 | Day surgery (SDC) | payer BC, OTHER, SELFPAY ==
[2022-09-22 13:48] VITALS: BMI 35.2
--- NOTE | 2022-09-26 13:20 | HO.ANESPROP2 ---
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 (Acute) Uncontrolled type 2 diabetes mellitus with hyperglycemia (Acute) Past Medical History Medical History (Updated 04/25/22 @ 11:20 by DYLAN Bateman) Diabetes Elevated cholesterol GERD (gastroesophageal reflux disease) Hypertension Uncontrolled type 2 diabetes mellitus with hyperglycemia Family History Family History Mother High blood pressure HX: breast cancer Father Diabetes Surgical History Surgical History (Updated 09/22/22 @ 13:43 by Kinza Gonzalez RN) History of ankle surgery History of bladder endoscopy History of esophagogastroduodenoscopy (EGD) Hx of cholecystectomy Hx of knee surgery History of Problems with Anesthesia: No Social History Social History Alcohol intake: current Alcohol intake frequency: does not drink Patient Tobacco Use Status: Current everyday Tobacco user Tobacco use type: Cigarette Cigarette Packs Per Day: 0.5 Cigarettes Per Day: 10.0 Years Smoked: 28 Meds Allergies Allergy/AdvReac Type Severity Reaction Status Date / Time No Known Allergies Allergy Verified 07/14/22 13:53 [No Known Allergies*] Home Medications Medication Instructions Recorded Confirmed Last Taken Type atorvastatin 10 mg tablet 10 mg PO DAILY 05/20/21 04/05/22 Unknown History lisinopril 20 mg tablet 20 mg PO DAILY 05/20/21 04/05/22 Unknown History loratadine 10 mg tablet (Claritin) 10 mg PO DAILY 05/20/21 04/05/22 Unknown History ciclopirox 0.77 % topical cream 1 appl topical DAILY 12/13/21 04/05/22 Unknown History dapagliflozin 5 mg-metformin ER 1 tab PO DAILY 04/05/22 04/05/22 Unknown History 1,000 mg tablet,extended release 24hr (Xigduo XR) tadalafil 5 mg tablet (Cialis) 5 mg PO DAILY 04/05/22 04/05/22 Unknown History betamethasone dipropionate 0.05 % 1 appl topical BID 04/20/22 Unknown History topical cream dapagliflozin 10 mg-metformin ER 1 tab PO DAILY 07/14/22 Unknown History 1,000 mg tablet,extended release 24hr (Xigduo XR) Exam Exam Date and Time: September 26, 2022 1320 Height,Weight and Vital Signs: Height 5 ft 7 in Weight 102.058 kg Pertinent Lab Results Pertinent Lab Results: Laboratory Tests 02/24/22 02/24/22 05/30/22 11:33 11:33 09:11 WBC 4.5 L Hgb 15.9 Hct 46.5 Plt Count 238 Sodium 138 143 Potassium 4.4 4.3 Chloride 105 107 Carbon Dioxide 24 27 BUN 15 19 H Creatinine 0.93 0.96 05/30/22 09:11 WBC 5.2 Hgb 16.8 Hct 50.2 Plt Count 247 Sodium Potassium Chloride Carbon Dioxide BUN Creatinine Assessment and Plan Assessment Anesthesia Assessment: Chart Reviewed Final Anesthetic Review History of Problems with Anesthesia: No
[2022-09-27 07:59] VITALS: BP 123/0; PULSE 88; RESP 19; TEMP 36.6; O2SAT 98
[2022-09-27 08:00] LABS: Glucose, Whole Blood 162 mg/dL (60-115)
--- NOTE | 2022-09-27 08:10 | HO.ANESPROP2 ---
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 (Acute) Uncontrolled type 2 diabetes mellitus with hyperglycemia (Acute) Past Medical History Medical History (Updated 04/25/22 @ 11:20 by DYLAN Bateman) Diabetes Elevated cholesterol GERD (gastroesophageal reflux disease) Hypertension Uncontrolled type 2 diabetes mellitus with hyperglycemia Family History Family History Mother High blood pressure HX: breast cancer Father Diabetes Surgical History Surgical History (Updated 09/22/22 @ 13:43 by Kinza Gonzalez RN) History of ankle surgery History of bladder endoscopy History of esophagogastroduodenoscopy (EGD) Hx of cholecystectomy Hx of knee surgery History of Problems with Anesthesia: No Social History Social History Alcohol intake: current Alcohol intake frequency: does not drink Patient Tobacco Use Status: Current everyday Tobacco user Tobacco use type: Cigarette Cigarette Packs Per Day: 0.5 Cigarettes Per Day: 10.0 Years Smoked: 28 Are you DNR?: No Advance Directives: No Advance Directives Information Provided: Yes Meds Allergies Allergy/AdvReac Type Severity Reaction Status Date / Time No Known Allergies Allergy Verified 07/14/22 13:53 [No Known Allergies*] Active Medications: Current Medications Lactated Ringer's (Lr) 1,000 mls @ 100 mls/hr IVCONT .Q10H [facility] Home Medications Medication Instructions Recorded Confirmed Last Taken Type atorvastatin 10 mg tablet 10 mg PO DAILY 05/20/21 04/05/22 Unknown History lisinopril 20 mg tablet 20 mg PO DAILY 05/20/21 04/05/22 Unknown History loratadine 10 mg tablet (Claritin) 10 mg PO DAILY 05/20/21 04/05/22 Unknown History ciclopirox 0.77 % topical cream 1 appl topical DAILY 12/13/21 04/05/22 Unknown History dapagliflozin 5 mg-metformin ER 1 tab PO DAILY 04/05/22 04/05/22 Unknown History 1,000 mg tablet,extended release 24hr (Xigduo XR) tadalafil 5 mg tablet (Cialis) 5 mg PO DAILY 04/05/22 04/05/22 Unknown History betamethasone dipropionate 0.05 % 1 appl topical BID 04/20/22 Unknown History topical cream dapagliflozin 10 mg-metformin ER 1 tab PO DAILY 07/14/22 Unknown History 1,000 mg tablet,extended release 24hr (Xigduo XR) Exam Exam Date and Time: September 27, 2022 0810 Height,Weight and Vital Signs: Height 5 ft 7 in Weight 102.058 kg Last Vital Signs Temp 98 F 09/27/22 07:59 Pulse 88 09/27/22 07:59 Resp 19 09/27/22 07:59 BP 123/0 L 09/27/22 07:59 Pulse Ox 98 09/27/22 07:59 O2 Del Method 09/27/22 07:59 Pertinent Lab Results Pertinent Lab Results: Laboratory Tests 09/27/22 07:54 POC Glucose 162 H Airway Mallampati Class: III TM Dist: >3cm Neck ROM: Full Heart: rr Lungs: cta Assessment and Plan Assessment Anesthesia Assessment: Anesthesia Plan Discussed and Chart Reviewed Final Anesthetic Review History of Problems with Anesthesia: No ASA Class: III Final Preanesthetic Review: No Changes in Pt Med Stat, Meds/Allgs Chart Reviewed and Consent Obtained/Reviewed Patient Risk: Intermediate (Probable sleep apnea) Procedure Risk: Low Anesthetic Plan Anesthetic Plan: MAC: and Agree w/ Assess. and Plan Disposition: Standard PACU
[2022-09-27] MEDS: Lactated Ringers 1,000 ML 100 ML IVCONT (08:16)
--- NOTE | 2022-09-27 08:39 | MHC.SHP ---
Pre-Procedural Eval Section A Date of Service: 09/27/22 Section B Chief Complaint: Ulcer of esophagus without bleeding, reflux Relevant Family History (Specify if Yes): No Relevant Social History: Tobacco Use Present Medications: see Short Stay Collaborative assessment Medical History: Significant History (Diabetes Elevated cholesterol GERD (gastroesophageal reflux disease) Hypertension Uncontrolled type 2 diabetes mellitus with hyperglycemia) History of Previous Operations: Relevant previous surgery/procedure and date(s) (History of ankle surgery History of bladder endoscopy Hx of cholecystectomy Hx of knee surgery) Allergies: Allergies Allergy/AdvReac Type Severity Reaction Status Date / Time No Known Allergies Allergy Verified 07/14/22 13:53 [No Known Allergies*] Review of Systems Sugical H&P ROS: Negative: Constitution, Cardiovascular, Respiratory, Neurological, Psychiatric, Hem-Onc, Allergic/Immunologic, Gastrointestinal, Genitourinary, Musculoskeletal, Integumentary, Endocrine and Eyes/Ears/Nose/Throat Exam Surgical H&P Exam: Normal: HEENT, Normal: Heart, Normal: Lungs, Normal: Extremities, Normal: Abdomen, Normal: Skin and Normal: Neurological Plan Diagnosis/Plan: Unchanged I have reviewed the history and physical and performed a pertinent physical examination on my patient. No changes have occurred unless specified. Time Spent With Patient Time: Total time managing care of this patient today ____ minutes.
--- NOTE | 2022-09-27 08:40 | W.PM.OPN ---
Operative Note Operative Note Date of Service: 09/27/22 Narrative: Procedure Description: EGD Indication: hx of GERD Anesthesia: MAC FLEXIBLE TRANSORAL UPPER GASTROINTESTINAL ENDOSCOPY UPPER ENDOSCOPY Consent: Indications for the procedure and potential complications of bleeding, perforation, reaction to medications and missed diagnosis were discussed with the patient and informed consent was obtained. Instrument: Olympus GIF H 190 J mid size upper endoscope Monitoring: Vital signs and clinical assessment, continuous EKG monitoring, Pulse oximetry, Carbon Dioxide monitoring and blood pressure monitoring were done throughout the procedure. Procedure: The patient was placed in the left lateral decubitis position and pre-procedure medications were administered and a bite block was placed. The endoscope was inserted into the mouth and advanced under direct vision to the third part of duodenum. A careful inspection was made as the upper endoscope was withdrawn including a retroflexed examination of the proximal stomach; Findings and interventions are described below. Findings: Larynx:normal Esophagus: GE junction at 38 cm, diaphragm hiatus at 38 cm, mild bogginess at GEJ, bx taken from there and from distal, proximal esophagus--previous noted nodularity not seen Stomach: Mild patchy gastric erythema. Biopsies were obtained. Grade 2 flap valve on retroflexed examination of the cardia. There was retained food in the stomach Duodenum: Normal bulb and descending duodenum, Intervention: Biopsies as noted above Impression/Findings: mild gastritis possible gastroparesis PLAN: cut down PPI to once a day consider gastric emptying study on / with October improve diabetic control
[2022-09-27 08:59] VITALS: BP 118/63; PULSE 93; RESP 16; TEMP 36.6; O2SAT 99
[2022-09-27 09:14] VITALS: BP 151/82; PULSE 87; RESP 18; TEMP 36.7; O2SAT 96
== END 2022-09-27 09:58 | disposition home or self-care (01) ==
PROVIDERS: PCP Internal Medicine Medical Oncology; Visit Provider Internal Medicine Gastroenterology
PROC: 0DJ08ZZ Inspection of Upper Intestinal Tract, Via Natural or Artificial Opening Endoscopic (ICD-10-PCS; CPT 43235; principal; 2022-09-27 08:30)
DX: K21.9 Gastro-esophageal reflux disease without esophagitis (principal); K29.50 Unspecified chronic gastritis without bleeding; E11.65 Type 2 diabetes mellitus with hyperglycemia; Z79.85 Long-term (current) use of injectable non-insulin antidiabetic drugs; K31.84 Gastroparesis; K44.9 Diaphragmatic hernia without obstruction or gangrene; E78.00 Pure hypercholesterolemia, unspecified; I10 Essential (primary) hypertension; Z79.899 Other long term (current) drug therapy; Z90.49 Acquired absence of other specified parts of digestive tract; F17.210 Nicotine dependence, cigarettes, uncomplicated
CPT/HCPCS: 43239; 82947; 88305; 88342; J2250

== ENCOUNTER 2022-10-06 09:09 | Outpatient (REF) | payer BC, OTHER, SELFPAY ==
[2022-10-06 09:36] LABS: MANUAL DIFF FLAG NO
[2022-10-06 11:11] LABS: Basophils Percent Auto 0.4 % (0-2); Eosinophils Percent Auto 0.7 % (0-4); Hemoglobin 17.5 g/dl (14.0-18.0); Imm Gran Abs Auto 0.03 X10*3/uL (0.00-0.03); Imm Gran Pct Auto 0.5 % (0.0-0.4); Lymphocytes Percent Auto 36.6 % (20-40); Mean Corpuscular Hemoglobin 28.1 pg (27.0-33.0); Mean Corpuscular Volume 85.2 fL (80.0-98.0); Mean Platelet Volume 10.8 fL (9.4-12.4); Monocytes Absolute Auto 0.4 X10*3/uL (0.1-1.2); Neutrophils Absolute Auto 3.1 x10*3/uL (2.0-8.3); Neutrophils Percent Auto 54.8 % (45-73); Platelet Count 262 X10*3/uL (160-400); Red Blood Count 6.22 X10*6/uL (4.60-5.80); Red Cell Distribution Width 13.9 % (11.0-16.0); White Blood Count 5.6 X10*3/uL (4.8-10.8)
[2022-10-06 12:35] LABS: Estimated Average Glucose 143 mg/dL; Hemoglobin A1c % 6.6 %
[2022-10-06 12:54] LABS: Alanine Aminotransferase 47 U/L (0-40); Albumin Level 4.4 g/dL (3.5-5.0); Alkaline Phosphatase 78 U/L (39-117); Anion Gap 11 (12-20); Aspartate Amino Transferase 22 U/L (5-37); Bilirubin Total 0.6 mg/dL (0.0-1.0); Blood Urea Nitrogen 16 mg/dL (9-16); Calcium 9.2 mg/dL (8.4-10.2); Carbon Dioxide 29 mmol/L (22-29); Chloride 107 mmol/L (96-108); Cholesterol 231 mg/dL; Estimated Glomerular Filt Rate > 60; Glucose Fasting 123 mg/dL (60-99); HDL Cholesterol 32 mg/dL; LDL Cholesterol Calculated 165 mg/dl; Potassium 4.3 mmol/L (3.3-5.1); Sodium 143 mmol/L (135-145); Total Protein 6.9 g/dL (6.5-8.0); Triglycerides 173 mg/dL; Vitamin D 25-OH Total 23.4 ng/mL (>30)
== END 2022-10-06 09:10 | disposition home or self-care (01) ==
LOC: HO.LAB 09:09
PROVIDERS: PCP Internal Medicine Medical Oncology; Visit Provider Internal Medicine Medical Oncology
DX: I10 Essential (primary) hypertension (principal); E11.9 Type 2 diabetes mellitus without complications; E66.9 Obesity, unspecified; N40.0 Benign prostatic hyperplasia without lower urinary tract symptoms; E55.9 Vitamin D deficiency, unspecified
CPT/HCPCS: 36415; 80053; 80061; 82306; 83036; 85025

== ENCOUNTER → 2022-10-12 15:24 | Outpatient (BNVA) | payer BC, OTHER, SELFPAY | PROVIDERS: PCP Internal Medicine Medical Oncology; Visit Provider Nurse Practitioner | DX: Z13.89 Encounter for screening for other disorder (principal) ==

== ENCOUNTER 2022-10-31 15:26 | Emergency (ER) | payer BC, MEDICAID, SELFPAY ==
[2022-10-31 16:25] VITALS: BP 142/96; PULSE 85; RESP 18; TEMP 36.7; O2SAT 96; BMI 34.1
--- NOTE | 2022-10-31 16:31 | ECG_ITS ---
Test Reason : L SHOULDER PAIN Blood Pressure : / mmHG Vent. Rate : 078 BPM Atrial Rate : 078 BPM P-R Int : 170 ms QRS Dur : 096 ms QT Int : 388 ms P-R-T Axes : 044 008 019 degrees QTc Int : 442 ms Normal sinus rhythm Incomplete right bundle branch block Borderline ECG When compared with ECG of 29-APR-2015 01:52, No significant change was found Referred By: Daily Morgan Electronically Signed By:Addi Santana
[2022-10-31 17:41] LABS: Troponin-I High Sensitivity < 2.7 ng/L (<3.5-35.0)
--- NOTE | 2022-10-31 18:15 | ED_ITS ---
HPI - Extremity Problem General Chief complaint: Extremity Injury, Upper Stated complaint: Pinched nerve Time Seen by Provider: 10/31/22 17:58 Source: patient Mode of arrival: ambulatory Limitations: no limitations History of Present Illness HPI Narrative: 47-year-old male with PMHx of GERD, Mai's esophagus, uncontrolled type 2 diabetes, and diabetic gastroparesis presents to the ED c/o 5 days of left shoulder pain which radiates from the lower scapula to elbow, worse with movement. Has been using oxycodone which he obtained from a recent surgery and Tylenol with minimal relief, has also tried ice/heat application to the area with no significant improvement. Denies recent or prior injury to the area, heavy lifting, shortness of breath, chest pain, fever, or headaches. Onset (ago): day(s) (5) Relieving factors: immobilization Exacerbating factors: range of motion Related Data Home Medications Medication Instructions Recorded Confirmed atorvastatin 10 mg tablet 10 mg PO DAILY 05/20/21 04/05/22 lisinopril 20 mg tablet 20 mg PO DAILY 05/20/21 04/05/22 loratadine 10 mg tablet (Claritin) 10 mg PO DAILY 05/20/21 04/05/22 ciclopirox 0.77 % topical cream 1 appl topical DAILY 12/13/21 04/05/22 dapagliflozin 5 mg-metformin ER 1 tab PO DAILY 04/05/22 04/05/22 1,000 mg tablet,extended release 24hr (Xigduo XR) tadalafil 5 mg tablet (Cialis) 5 mg PO DAILY 04/05/22 04/05/22 betamethasone dipropionate 0.05 % 1 appl topical BID 04/20/22 topical cream dapagliflozin 10 mg-metformin ER 1 tab PO DAILY 07/14/22 1,000 mg tablet,extended release 24hr (Xigduo XR) Previous Rx's Medication Instructions Recorded dulaglutide 1.5 mg/0.5 mL 1.5 mg (0.5 mL) subcut QWEEK #2 mL 07/14/22 subcutaneous pen injector (Trulicity) metoclopramide HCl 5 mg tablet 5 mg PO QIDACHS #120 tabs 10/12/22 (Reglan) omeprazole 40 mg capsule,delayed 40 mg PO BID 90 days #180 caps 03/16/23 release acetaminophen 500 mg tablet 500 mg PO Q6H PRN fever or pain 10/31/22 (Tylenol Extra Strength) #14 tabs cyclobenzaprine 5 mg tablet 5 mg PO Q8H PRN pain (scale score 10/31/22 7-10) 5 days #14 tabs lidocaine 5 % topical patch 1 patch topical DAILY PRN pain #30 10/31/22 (Lidoderm) ea naproxen 500 mg tablet 500 mg PO BID PRN pain 10 days #20 10/31/22 tabs Allergies Allergy/AdvReac Type Severity Reaction Status Date / Time No Known Allergies Allergy Verified 10/12/22 15:32 [No Known Allergies*] Review of Systems Review of Systems: Constitutional: No Fever, No Chills ENT/Mouth: No Nasal Congestion, No Hoarseness, No sore throat, No Rhinorrhea, No Swallowing Difficulty Cardiovascular: No Chest Pain, No SOB Respiratory: No Cough, No Sputum, No Wheezing Gastrointestinal: No Nausea, No Vomiting, No Diarrhea, No Constipation, No Abdominal pain Genitourinary: No Dysuria, No Hematuria, No Urinary Incontinence/retention, No Flank Pain Musculoskeletal: + scapular MSK pain, + joint pain, No Myalgias, No Joint Swelling Skin: No Skin Lesions, No rash Neuro: No Weakness, No Numbness, + Paresthesias Yes all other systems are reviewed and are negative Constitutional: Constitutional: Reports as per [facility] Past Medical History Attestation statement: The following information was validated with the patient. Medical History Diabetes Elevated cholesterol GERD (gastroesophageal reflux disease) Hypertension Uncontrolled type 2 diabetes mellitus with hyperglycemia Surgical History History of ankle surgery History of bladder endoscopy History of esophagogastroduodenoscopy (EGD) Hx of cholecystectomy Hx of knee surgery Family History Family History Mother High blood pressure HX: breast cancer Father Diabetes Social History Social History Alcohol intake: current Alcohol intake frequency: does not drink Patient Tobacco Use Status: Current everyday Tobacco user Tobacco use type: Cigarette Cigarette Packs Per Day: 0.5 Cigarettes Per Day: 10.0 Years Smoked: 28 Advance Directives: No Advance Directives Information Provided: No Physical Exam Vital Signs: Vital Signs: Last Vital Signs Temp 98.0 F 10/31/22 16:25 Pulse 85 10/31/22 16:25 Resp 18 10/31/22 16:25 BP 142/96 H 10/31/22 16:25 Pulse Ox 96 10/31/22 16:25 O2 Del Method Room Air 10/31/22 16:25 BMI result Body Mass Index 34.1 Const: General: cooperative, healthy appearing and no acute distress Orientation/consciousness: patient oriented x3 Limitations: no limitations HEENT: Head: Yes normal to inspection and Yes atraumatic Ears: hearing grossly normal bilaterally General nose exam: Normal external nose present Face and sinus: Yes normal facial exam Eyes: General: appearance normal, both eyes and all related structures EOM: EOMs intact bilaterally Neck: Other: no midline cervical spinous tenderness Neck: Yes normal visual inspection and Yes no meningeal signs Resp: Effort & Inspection: normal respiratory effort and no respiratory distre ss Auscultation: clear to auscultation bilaterally Cardio: Rate: regular rate Heart sounds: S1 normal heart sound present and S2 normal heart sound present Peripheral pulses: radial pulses present and ulnar radial pulses present Back/Spine/Pelvis: Other: No midline thoracic/lumbar spinous tenderness/step-off or deformity Skin: Other: No erythema/ecchymosis/deformity noted over the left scapular region. General skin exam: no rashes or lesions noted Rashes: no rashes Wounds: no wounds Neuro: Other: sensation to light touch intact on bilateral upper extremities with 5/5 strength. General: patient oriented x3, tone normal and no meningeal signs Cranial nerves: Yes CN's II-XII intact bilaterally Gait exam (Neuro): Normal gait present Motor exam (neuro): 5/5 motor strength present throughout Extrem: Other: Diffuse tenderness to palpation of the left scapular region reproducing subjective complaint. Full ROM. 5/5 strength. left shoulder nontender, ROM intact, eliciting pain. Neurovascular intact distally General: Yes normal to inspection and Yes full ROM Medications Administered Discontinued Medications Generic Name Dose Route Start Last Admin Trade Name Freq PRN Reason Stop Dose Admin Ketorolac Tromethamine 30 mg 10/31/22 19:11 10/31/22 19:26 Ketorolac Tromethamine 30 Mg/Ml Vial IM 10/31/22 19:12 30 mg ONCE ONE Administration Medical Decision Making Medical Decision Making [facility] Narrative: 47-year-old male with PMHx of GERD, Mai's esophagus, uncontrolled type 2 diabetes, and diabetic gastroparesis presents to the ED c/o 5 days of left shoulder pain which radiates from the lower scapula to elbow, worse with movement. On exam vital signs within normal limits, diffuse tenderness to palpation of all the left scapular region. 5/5 upper extremity strength with no focal neuro deficits. Concern for scapular MSK spasm/sprain. Less concern for ACS, septic arthritis/joint, rotator cuff injury, fractures, or PNA/pulmonary embolism. EKG and troponin ordered in triage plan: Pain management > EKG nonischemic and Cardiac enzymes within normal limits. Results discussed with patient including worrisome signs and symptoms and strict return precautions, and when to return to the emergency department. They verbalized understanding and feel safe for discharge at this time. Differential Diagnosis Differential Diagnoses: The differential diagnosis associated with the presentation includes As above Admission/Observation Consideration of admission/observation: Escalation of care including admission/observation considered Lab Data [facility] Lab Attestation statement: I reviewed the patient's lab results. Labs: Lab Results 10/31/22 Range/Units 16:59 Troponin I High Sens < 2.7 (<3.5-35.0) ng/L Independent Interpretation I performed an independent interpretation of an: EKG ( my interpretation EKG is normal sinus rhythm at a rate of 78. IN interval 170. QTC 442. No STEMI. No significant change when compared to priors) Radiology Impression Discussion of test interpretation with radiology: I have reviewed the radiologist's reading. External Record Review External record reviewed: Inpatient record, Office record, Outpatient record, Prior outpatient labs, Prior outpatient radiology, Primary care record and Outside ED record Discharge Plan Discharge Clinical Impression: Pain in scapula Patient Disposition: Home, Self-Care Instructions: Acute Low Back Pain (ED) Additional Instructions: Your pain is likely musculoskeletal Flexeril is a muscle relaxer, take at night as it makes you drowsy, do not drive, drink alcohol, or operate machinery while taking it Naproxen as an anti-inflammatory / pain medication, take with food Lidoderm patches are numbing patches, apply to painful area In addition take Tylenol at home If symptoms persist or worsen, pain becomes unbearable, you developed urinary retention or incontinence, or weakness return to the ED Prescriptions: New cyclobenzaprine 5 mg tablet 5 mg PO Q8H PRN (Reason: pain (scale score 7-10)) 5 Days Qty: 14 0RF lidocaine [Lidoderm] 5 % adhesive patch,medicated 1 patch topical DAILY MDD remove after 12 hours PRN (Reason: pain) Qty: 30 0RF Rx Instructions: leave on most painful area for up to 12 hrs acetaminophen [Tylenol Extra Strength] 500 mg tablet 500 mg PO Q6H PRN (Reason: fever or pain) Qty: 14 0RF naproxen 500 mg tablet 500 mg PO BID PRN (Reason: pain) 10 Days Qty: 20 0RF No Action tadalafil [Cialis] 5 mg Tablet 5 mg PO DAILY Xigduo XR 5-1,000 mg Tablet, Ir - Er, Biphasic 24hr 1 tab PO DAILY lisinopril 20 mg tablet 20 mg PO DAILY atorvastatin 10 mg tablet 10 mg PO DAILY loratadine [Claritin] 10 mg tablet 10 mg PO DAILY ciclopirox 0.77 % cream 1 appl topical DAILY Xigduo XR 10-1,000 mg tablet, IR - ER, biphasic 24hr 1 tab PO DAILY Trulicity 1.5 mg/0.5 mL pen injector 1.5 mg subcut QWEEK Qty: 2 5RF metoclopramide HCl [Reglan] 5 mg tablet 5 mg PO QIDACHS Qty: 120 0RF omeprazole 40 mg capsule,delayed release(DR/EC) 40 mg PO BID 90 Days Qty: 180 2RF Rx Instructions: Take 30 mins before meals betamethasone dipropionate 0.05 % cream 1 appl topical BID Referrals: Graeme Ayala MD [Primary Care Provider] - Interventions: ED Discharge Assessment Last Done: 10/31/22 19:29 Discharge Date/Time: 10/31/22 19:31
--- OUTSIDE RECORDS SUMMARY | 2022-10-31 18:17 | XMS_ITS ---
Author Name Graeme Ayala Address [address] [place] [address] Organization Graeme Ayala III, MD Address [address] [place] [address] Care Team Providers Care Guest Relations Coordinator Name Role Phone Graeme Ayala [facility] [phone] PROBLEMS Type Condition ICD9-CM Code [id number] Code Onset Dates Condition Status SNOMED Code Problem Type 2 diabetes mellitus without complication, without long-term current use of insulin E11.9 Active 952178851 Problem History of strabismus Z86.69 Active [id number] 06 Problem BPH (benign prostatic hyperplasia) N40.0 Active 359995473 Problem DM (diabetes mellitus) E11.9 Active Problem Tobacco dependence F17.200 Active 19398547 Problem Obesity, mild E66.9 Active 664393341 Problem Essential hypertension I10 Active 95137806 Problem Erectile dysfunction N52.9 Active 306564091 ALLERGIES Substance Reaction Event Type Date Status none known Unknown Non Drug Allergy Oct, Active ENCOUNTERS Encounter Location Date Diagnosis Graeme Ayala III, MD [address] [place] [address] [place] [address] Oct, Essential hypertension I10 ; Obesity, mild E66.9 ; Tobacco dependence F17.200 ; Type 2 diabetes mellitus without complication, without long-term current use of insulin E11.9 ; BPH (benign prostatic hyperplasia) N40.0 and Left anterior shoulder pain M25.512 Graeme Ayala III, MD [address] [place] [address] [place] [address] Sep, Essential hypertension I10 ; Obesity, mild E66.9 ; Type 2 diabetes mellitus without complication, without long-term current use of insulin E11.9 and BPH (benign prostatic hyperplasia) N40.0 Graeme Ayala III, MD [address] [place] [address] [place] [address] May, Essential hypertension I10 ; Obesity, mild E66.9 ; Type 2 diabetes mellitus without complication, without long-term current use of insulin E11.9 ; BPH (benign prostatic hyperplasia) N40.0 ; Erectile dysfunction N52.9 and History of strabismus Z86.69 Graeme Ayala III, MD [address] [place] [address] [place] [address] Feb, Essential hypertension I10 ; BPH (benign prostatic hyperplasia) N40.0 ; DM (diabetes mellitus) E11.9 ; Obesity, mild E66.9 and Tobacco dependence F17.200 Graeme Ayala III, MD [address] [place] [address] [place] [address] November, Essential hypertension I10 ; DM (diabetes mellitus) E11.9 ; BPH (benign prostatic hyperplasia) N40.0 ; Type 2 diabetes mellitus without complication, without long-term current use of insulin E11.9 ; Tobacco dependence F17.200 and Obesity, mild E66.9 Graeme Ayala III, MD [address] [place] [address] [place] [address] Oct, Essential hypertension I10 ; DM (diabetes mellitus) E11.9 ; Obesity, mild E66.9 ; Tobacco dependence F17.200 and BPH (benign prostatic hyperplasia) N40.0 Graeme Ayala III, MD [address] [place] [address] [place] [address] Sep, Essential hypertension I10 ; BPH (benign prostatic hyperplasia) N40.0 ; Type 2 diabetes mellitus without complication, without long-term current use of insulin E11.9 ; Tobacco dependence F17.200 and Obesity, mild E66.9 Graeme Ayala III, MD [address] [place] [address] [place] [address] Jul, Essential hypertension I10 ; Obesity, mild E66.9 ; Type 2 diabetes mellitus without complication, without long-term current use of insulin E11.9 ; Tobacco dependence F17.200 ; BPH (benign prostatic hyperplasia) N40.0 and Erectile dysfunction N52.9 Graeme Ayala III, MD [address] [place] [address] [place] [address] Mar, Essential hypertension I10 ; Obesity, mild E66.9 ; Type 2 diabetes mellitus without complication, without long-term current use of insulin E11.9 ; Tobacco dependence F17.200 and BPH (benign prostatic hyperplasia) N40.0 Graeme Ayala III, MD [address] [place] [address] [place] [address] Dec, Essential hypertension I10 ; Type 2 diabetes mellitus without complication, without long-term current use of insulin E11.9 ; BPH (benign prostatic hyperplasia) N40.0 ; Obesity, mild E66.9 and Tobacco dependence F17.200 Graeme Ayala III, MD [address] [place] [address] [place] [address] Sep, Graeme Ayala III, MD [address] [place] [address] [place] [address] Sep, Graeme Ayala III, MD [address] [place] [address] [place] [address] Sep, Essential hypertension I10 ; Obesity, mild E66.9 ; Type 2 diabetes mellitus without complication, without long-term current use of insulin E11.9 and Tobacco dependence F17.200 Graeme Ayala III, MD [address] [place] [address] [place] [address] Sep, Essential hypertension I10 ; Obesity, mild E66.9 and Type 2 diabetes mellitus without complication, without long-term current use of insulin E11.9 Graeme Ayala III, MD [address] [place] [address] [place] [address] Jun, Graeme Ayala III, MD [address] [place] [address] [place] [address] Jun, Erectile dysfunction N52.9 ; Essential hypertension I10 ; Obesity, mild E66.9 ; Tobacco dependence F17.200 and Type 2 diabetes mellitus without complication, without long-term current use of insulin E11.9 Graeme Ayala III, MD [address] [place] [address] [place] [address] Jun, Graeme Ayala III, MD [address] [place] [address] [place] [address] May, HTN (hypertension) I10 ; Obesity, mild E66.9 ; Tobacco dependence F17.200 and Type 2 diabetes mellitus without complication, without long-term current use of insulin E11.9 IMMUNIZATIONS Vaccine Route Administration Date Status COVID- 19 Vaccine Unknown May 23, 2021 Administer ed COVID- 19 Vaccine Unknown October 22, 2020 Administ ered COVID- 19 Vaccine Unknown Sep 24, 2020 Administer ed SOCIAL HISTORY Qualifiers Date Current Smoker REASON FOR REFERRAL FUNCTIONAL STATUS PLAN OF CARE Activity Details VITAL SIGNS Height 67 in 2022-10-30 Height 67 in 2022-10-23 Height 67 in 2022-06-02 Height 67 in 2022-03-03 Height 67 in 2021-12-16 Height 67 in 2021-11-18 Height 67 in 2021-10-24 Height 67 in 2021-04-22 Height 67 in 2021-01-14 Height 67 in 2020-10-15 Height 67 in 2020-07-05 Height 67 in 2020-06-16 Weight 216 lbs 2022-10-30 Weight 218 lbs 2022-10-23 Weight 221 lbs 2022-06-02 Weight 226 lbs 2022-03-03 Weight 231 lbs 2021-12-16 Weight 231 lbs 2021-11-18 Weight 230 lbs 2021-10-24 Weight 233 lbs 2021-04-22 Weight 231 lbs 2021-01-14 Weight 228 lbs 2020-10-15 Weight 235 lbs 2020-07-05 Weight 233 lbs 2020-06-16 BMI 33.83 kg/m2 2022-10-30 BMI 34.14 kg/m2 2022-10-23 BMI 34.61 kg/m2 2022-06-02 BMI 35.39 kg/m2 2022-03-03 BMI 36.18 kg/m2 2021-12-16 BMI 36.18 kg/m2 2021-11-18 BMI 36.02 kg/m2 2021-10-24 BMI 36.49 kg/m2 2021-04-22 BMI 36.18 kg/m2 2021-01-14 BMI 35.71 kg/m2 2020-10-15 BMI 36.80 kg/m2 2020-07-05 BMI 36.49 kg/m2 2020-06-16 Heart Rate 89 /min 2022-10-30 Heart Rate 81 /min 2022-10-23 Heart Rate 89 /min 2022-06-02 Heart Rate 83 /min 2022-03-03 Heart Rate 78 /min 2021-12-16 Heart Rate 94 /min 2021-11-18 Heart Rate 82 /min 2021-10-24 Heart Rate 79 /min 2021-04-22 Heart Rate 76 /min 2021-01-14 Heart Rate 83 /min 2020-10-15 Heart Rate 83 /min 2020-07-05 Heart Rate 76 /min 2020-06-16 Temperature 97.1 degrees Fahrenheit Temperature 97.1 degrees Fahrenheit Temperature 96.7 degrees Fahrenheit Temperature 96.9 degrees Fahrenheit Temperature 97.0 degrees Fahrenheit Temperature 96.5 degrees Fahrenheit Temperature 97.1 degrees Fahrenheit Temperature 97.2 degrees Fahrenheit Temperature 96.7 degrees Fahrenheit Temperature 96.0 degrees Fahrenheit Temperature 96.2 degrees Fahrenheit Blood pressure systolic 126 mm Hg Blood pressure diastolic 80 mm Hg 2022-10 MEDICATIONS Medication Instructions Dosage Frequency Start Date End Date Duration Status Omeprazole 40 MG TAKE 1 CAPSULE BY MOUTH TWICE A DAY Active Trulicity 1.5 MG/0.5ML INJECT 1 PEN EVERY WEEK Active Atorvastatin Calcium 10 MG Orally Once a day 1 tablet 24h Sep, Active Metoclopramide HCl 5 MG TAKE 1 TABLET BY MOUTH 4 TIMES A DAY BEFORE MEAL/BED Active Xigduo XR 10-1000 MG Orally Once a day 1 tablet 24h Feb, Active Lisinopril 20 MG TAKE 1 TABLET BY MOUTH EVERY MORNING Active Ciclopirox Olamine 0.77 % Active Tadalafil 5 MG Orally Once a day 1 tablet as needed 24h Active PROCEDURES Procedure Date Ordered Result Body Site OCCULT BLOOD, FECES, SINGLE Mar 03, 2022 PHONE E/M BY PHYS 21-30 MIN Aug 22, 2021 ASSAY, GLUCOSE, BLOOD QUANT November 18, 2021 ASSAY, GLUCOSE, BLOOD QUANT Mar 03, 2022 ASSAY, GLUCOSE, BLOOD QUANT December 16, 2021 RESULTS Name Result Date Reference Range Complete Blood Count Auto Diff 2022-10-06 White Blood Count 5.6 4.8-10.8 Red Blood Count 6.22 4.60-5.80 Hemoglobin 17.5 14.0-18.0 Hematocrit 53.0 42.0-52.0 Mean Corpuscular Volume 85.2 80.0 -98.0 Mean Corpuscular Hemoglobin 28.1 27.0-33.0 Mean Corpuscular HGB Conc 33.0 31 .0-36.0 Red Cell Distribution Width 13.9 11.0-16.0 Platelet Count 262 160-400 Mean Platelet Volume 10.8 9.4-12. 4 Neutrophils Percent Auto 54.8 45- 73 Imm Gran Pct Auto 0.5 0.0-0.4 Lymphocytes Percent Auto 36.6 20- 40 Monocytes Percent Auto 7.0 2-11 Eosinophils Percent Auto 0.7 0-4 Basophils Percent Auto 0.4 0-2 NRBC Pct Auto 0.0 0.0-0.2 Neutrophils Absolute Auto 3.1 2. 0-8.3 Imm Gran Abs Auto 0.03 0.00-0.03 Lymphocytes Absolute Auto 2.0 1. 2-4.9 Monocytes Absolute Auto 0.4 0.1- 1.2 Eosinophils Absolute Auto 0.0 0. 0-0.4 Basophils Absolute Auto 0.0 0.0- 0.2 NRBC Abs Auto 0.000 0.0-0.012 Comprehensive [place]. Panel Fast 2022-10-06 Sodium 143 135-145 Potassium 4.3 3.3-5.1 Chloride 107 96-108 Carbon Dioxide 29 22-29 Anion Gap 11 12-20 Blood Urea Nitrogen 16 9-16 Creatinine 1.01 0.5-1.4 Estimated Glomerular Filt Rate >60 Glucose Fasting 123 60-99 Calcium 9.2 8.4-10.2 Bilirubin Total 0.6 0.0-1.0 Aspartate Amino Transferase 22 5-37 Alanine Aminotransferase 47 0-4 0 Total Protein 6.9 6.5-8.0 Albumin Level 4.4 3.5-5.0 Alkaline Phosphatase 78 39-117 Lipid Panel 2022-10-06 Triglycerides 173 Cholesterol 231 LDL Cholesterol Calculated 165 HDL Cholesterol 32 Vitamin D 25-OH Total 2022-10-06 Vitamin D 25-OH Total 23.4 >30 Hemoglobin A1c 2022-10-06 Hemoglobin A1c % 6.6 Estimated Average Glucose 143 Glucose, Whole Blood 2022-09-27 Glucose, Whole Blood 162 60-115 Pathology 2022-09-27 Glucose, Whole Blood 2022-07-14 Glucose, Whole Blood 100 60-115 Complete Blood Count Auto Diff 2022-05-30 White Blood Count 5.2 4.8-10.8 Red Blood Count 5.93 4.60-5.80 Hemoglobin 16.8 14.0-18.0 Hematocrit 50.2 42.0-52.0 Mean Corpuscular Volume 84.7 80.0 -98.0 Mean Corpuscular Hemoglobin 28.3 27.0-33.0 Mean Corpuscular HGB Conc 33.5 31 .0-36.0 Red Cell Distribution Width 12.9 11.0-16.0 Platelet Count 247 160-400 Mean Platelet Volume 10.1 9.4-12. 4 Neutrophils Percent Auto 55.8 45- 73 Imm Gran Pct Auto 0.2 0.0-0.4 Lymphocytes Percent Auto 36.5 20- 40 Monocytes Percent Auto 6.3 2-11 Eosinophils Percent Auto 0.8 0-4 Basophils Percent Auto 0.4 0-2 NRBC Pct Auto 0.0 0.0-0.2 Neutrophils Absolute Auto 2.9 2. 0-8.3 Imm Gran Abs Auto 0.01 0.00-0.03 Lymphocytes Absolute Auto 1.9 1. 2-4.9 Monocytes Absolute Auto 0.3 0.1- 1.2 Eosinophils Absolute Auto 0.0 0. 0-0.4 Basophils Absolute Auto 0.0 0.0- 0.2 NRBC Abs Auto 0.000 0.0-0.012 Comprehensive [place]. Panel Fast 2022-05-30 Sodium 143 135-145 Potassium 4.3 3.3-5.1 Chloride 107 96-108 Carbon Dioxide 27 22-29 Anion Gap 13 12-20 Blood Urea Nitrogen 19 9-16 Creatinine 0.96 0.5-1.4 Estimated Glomerular Filt Rate >60 Glucose Fasting 115 60-99 Calcium 9.7 8.4-10.2 Bilirubin Total 0.5 0.0-1.0 Aspartate Amino Transferase 22 5-37 Alanine Aminotransferase 41 0-4 0 Total Protein 7.0 6.5-8.0 Albumin Level 4.5 3.5-5.0 Alkaline Phosphatase 72 39-117 Lipid Panel 2022-05-30 Triglycerides 145 Cholesterol 165 LDL Cholesterol Calculated 105 HDL Cholesterol 31 Glucose, Whole Blood 2022-04-11 Glucose, Whole Blood 118 60-115 Glucose, Whole Blood 2022-04-11 Glucose, Whole Blood 98 60-115 Glucose, Whole Blood 2022-04-11 Glucose, Whole Blood 151 60-115 Pathology 2022-04-11 GUAIAC, SINGLE SPECIMEN 2022-03-03 GUAIAC RBS/Hemocue glucose 2022-03-03 RBS 106 Complete Blood Count Auto Diff 2022-02-24 White Blood Count 4.5 4.8-10.8 Red Blood Count 5.58 4.60-5.80 Hemoglobin 15.9 14.0-18.0 Hematocrit 46.5 42.0-52.0 Mean Corpuscular Volume 83.3 80.0 -98.0 Mean Corpuscular Hemoglobin 28.5 27.0-33.0 Mean Corpuscular HGB Conc 34.2 31 .0-36.0 Red Cell Distribution Width 13.0 11.0-16.0 Platelet Count 238 160-400 Mean Platelet Volume 10.7 9.4-12. 4 Neutrophils Percent Auto 44.2 45- 73 Imm Gran Pct Auto 0.2 0.0-0.4 Lymphocytes Percent Auto 44.7 20- 40 Monocytes Percent Auto 8.3 2-11 Eosinophils Percent Auto 2.2 0-4 Basophils Percent Auto 0.4 0-2 NRBC Pct Auto 0.0 0.0-0.2 Neutrophils Absolute Auto 2.0 2. 0-8.3 Imm Gran Abs Auto 0.01 0.00-0.03 Lymphocytes Absolute Auto 2.0 1. 2-4.9 Monocytes Absolute Auto 0.4 0.1- 1.2 Eosinophils Absolute Auto 0.1 0. 0-0.4 Basophils Absolute Auto 0.0 0.0- 0.2 NRBC Abs Auto 0.000 0.0-0.012 Comprehensive [place]. Panel Fast 2022-02-24 Sodium 138 135-145 Potassium 4.4 3.3-5.1 Chloride 105 96-108 Carbon Dioxide 24 22-29 Anion Gap 13 12-20 Blood Urea Nitrogen 15 9-16 Creatinine 0.93 0.5-1.4 Estimated Glomerular Filt Rate >60 Glucose Fasting 135 60-99 Calcium 8.9 8.4-10.2 Bilirubin Total 0.7 0.0-1.0 Aspartate Amino Transferase 33 5-37 Alanine Aminotransferase 76 0-4 0 Total Protein 6.7 6.5-8.0 Albumin Level 4.2 3.5-5.0 Alkaline Phosphatase 75 39-117 Lipid Panel 2022-02-24 Triglycerides 197 Cholesterol 150 LDL Cholesterol Calculated 85 HDL Cholesterol 26 Microalbumin, Random 2022-02-24 Creatinine Urine 101.50 Microalbumin Urine 6.0 Microalbum/Creatinine Ratio Ur 5.9 Hemoglobin A1c 2022-02-24 Hemoglobin A1c % 7.5 Estimated Average Glucose 169 Hemoglobin A1c Hemoglobin A1c RBS/Hemocue glucose 2021-12-16 RBS 141 RBS/Hemocue glucose 2021-11-18 RBS 177 Complete Blood Count Auto Diff 2021-10-21 White Blood Count 4.8 4.8-10.8 Red Blood Count 5.67 4.60-5.80 Hemoglobin 16.0 14.0-18.0 Hematocrit 48.4 42.0-52.0 Mean Corpuscular Volume 85.4 80.0 -98.0 Mean Corpuscular Hemoglobin 28.2 27.0-33.0 Mean Corpuscular HGB Conc 33.1 31 .0-36.0 Red Cell Distribution Width 12.8 11.0-16.0 Platelet Count 235 160-400 Mean Platelet Volume 10.5 9.4-12. 4 Neutrophils Percent Auto 50.5 45- 73 Imm Gran Pct Auto 0.2 0.0-0.4 Lymphocytes Percent Auto 40.3 20- 40 Monocytes Percent Auto 7.8 2-11 Eosinophils Percent Auto 0.8 0-4 Basophils Percent Auto 0.4 0-2 NRBC Pct Auto 0.0 0.0-0.2 Neutrophils Absolute Auto 2.4 2. 0-8.3 Imm Gran Abs Auto 0.01 0.00-0.03 Lymphocytes Absolute Auto 1.9 1. 2-4.9 Monocytes Absolute Auto 0.4 0.1- 1.2 Eosinophils Absolute Auto 0.0 0. 0-0.4 Basophils Absolute Auto 0.0 0.0- 0.2 NRBC Abs Auto 0.000 0.0-0.012 Comprehensive [place]. Panel 2021-10-21 Sodium 140 135-145 Potassium 4.5 3.3-5.1 Chloride 109 96-108 Carbon Dioxide 24 22-29 Anion Gap 12 12-20 Blood Urea Nitrogen 17 9-16 Creatinine 0.99 0.5-1.4 Estimated Glomerular Filt Rate >60 Glucose Random 193 60-115 Calcium 9.5 8.4-10.2 Bilirubin Total 0.7 0.0-1.0 Aspartate Amino Transferase 20 5-37 Alanine Aminotransferase 42 0-4 0 Total Protein 6.9 6.5-8.0 Albumin Level 4.3 3.5-5.0 Alkaline Phosphatase 74 39-117 Lipid Panel 2021-10-21 Triglycerides 167 Cholesterol 166 LDL Cholesterol Calculated 108 HDL Cholesterol 25 Hemoglobin A1c 2021-10-21 Hemoglobin A1c % 7.6 Estimated Average Glucose 171 Glucose, Whole Blood 2021-08-30 Glucose, Whole Blood 139 60-115 Pathology 2021-08-30 Complete Blood Count Auto Diff 2021-08-19 White Blood Count 5.7 4.8-10.8 Red Blood Count 5.51 4.60-5.80 Hemoglobin 15.8 14.0-18.0 Hematocrit 47.6 42.0-52.0 Mean Corpuscular Volume 86.4 80.0 -98.0 Mean Corpuscular Hemoglobin 28.7 27.0-33.0 Mean Corpuscular HGB Conc 33.2 31 .0-36.0 Red Cell Distribution Width 12.9 11.0-16.0 Platelet Count 239 160-400 Mean Platelet Volume 11.0 9.4-12. 4 Neutrophils Percent Auto 52.7 45- 73 Imm Gran Pct Auto 0.4 0.0-0.4 Lymphocytes Percent Auto 36.9 20- 40 Monocytes Percent Auto 8.0 2-11 Eosinophils Percent Auto 1.6 0-4 Basophils Percent Auto 0.4 0-2 NRBC Pct Auto 0.0 0.0-0.2 Neutrophils Absolute Auto 3.0 2. 0-8.3 Imm Gran Abs Auto 0.02 0.00-0.03 Lymphocytes Absolute Auto 2.1 1. 2-4.9 Monocytes Absolute Auto 0.5 0.1- 1.2 Eosinophils Absolute Auto 0.1 0. 0-0.4 Basophils Absolute Auto 0.0 0.0- 0.2 NRBC Abs Auto 0.000 0.0-0.012 Comprehensive [place]. Panel Fast 2021-08-19 Sodium 140 135-145 Potassium 4.3 3.3-5.1 Chloride 108 96-108 Carbon Dioxide 25 22-29 Anion Gap 11 12-20 Blood Urea Nitrogen 15 9-16 Creatinine 1.04 0.5-1.4 Estimated Glomerular Filt Rate >60 Glucose Fasting 208 60-99 Calcium 9.3 8.4-10.2 Bilirubin Total 0.3 0.0-1.0 Aspartate Amino Transferase 20 5-37 Alanine Aminotransferase 39 0-4 0 Total Protein 6.6 6.5-8.0 Albumin Level 4.2 3.5-5.0 Alkaline Phosphatase 81 39-117 Lipid Panel 2021-08-19 Triglycerides 244 Cholesterol 155 LDL Cholesterol Calculated 79 HDL Cholesterol 28 Microalbumin, Random 2021-08-19 Creatinine Urine 175.47 Microalbumin Urine 6.0 Microalbum Creatinine Ratio Ur 3.4 Hemoglobin A1c 2021-08-19 Hemoglobin A1c % 8.5 Estimated Average Glucose 197 Diabetic Eye Exam Complete Blood Count Auto Diff 2021-04-15 White Blood Count 4.8 4.8-10.8 Red Blood Count 5.64 4.60-5.80 Hemoglobin 16.2 14.0-18.0 Hematocrit 48.2 42-52 Mean Corpuscular Volume 85.5 80-9 8 Mean Corpuscular Hemoglobin 28.7 27.0-33.0 Mean Corpuscular HGB Conc 33.6 31 .0-36.0 Red Cell Distribution Width 12.8 11.0-16.0 Platelet Count 220 160-400 Mean Platelet Volume 11.0 9.4-12. 4 Neutrophils Percent Auto 48.7 45- 73 Imm Gran Pct Auto 0.2 0.0-0.4 Lymphocytes Percent Auto 40.2 20- 40 Monocytes Percent Auto 9.2 2-11 Eosinophils Percent Auto 1.5 0-4 Basophils Percent Auto 0.2 0-2 NRBC Pct Auto 0.0 0.0-0.2 Neutrophils Absolute Auto 2.3 2. 0-8.3 Imm Gran Abs Auto 0.01 0.00-0.03 Lymphocytes Absolute Auto 1.9 1. 2-4.9 Monocytes Absolute Auto 0.4 0.1- 1.2 Eosinophils Absolute Auto 0.1 0. 0-0.4 Basophils Absolute Auto 0.0 0.0- 0.2 NRBC Abs Auto 0.000 0.0-0.012 Comprehensive [place]. Panel Fast 2021-04-15 Sodium 140 135-145 Potassium 4.3 3.3-5.1 Chloride 110 96-108 Carbon Dioxide 24 22-29 Anion Gap 10 12-20 Blood Urea Nitrogen 17 9-16 Creatinine 0.93 0.5-1.4 Estimated Glomerular Filt Rate >60 Glucose Fasting 175 60-99 Calcium 9.2 8.4-10.2 Bilirubin Total 0.8 0.0-1.0 Aspartate Amino Transferase 22 5-37 Alanine Aminotransferase 42 0-4 0 Total Protein 6.7 6.5-8.0 Albumin Level 4.3 3.5-5.0 Alkaline Phosphatase 79 39-117 Lipid Panel 2021-04-15 Triglycerides 178 Cholesterol 157 LDL Cholesterol Calculated 94 HDL Cholesterol 28 Prostate Specific Antigen 2021-04-15 Prostate Specific Antigen 0.97 <0 .05-4.0 Microalbumin, Random 2021-04-15 Creatinine Urine 182.87 Microalbumin Urine 6.0 Microalbum Creatinine Ratio Ur 3.2 Hemoglobin A1c 2021-04-15 Hemoglobin A1c % 7.9 Estimated Average Glucose 180 Complete Blood Count Auto Diff 2021-01-11 White Blood Count 6.3 4.8-10.8 Red Blood Count 5.67 4.60-5.80 Hemoglobin 16.2 14.0-18.0 Hematocrit 48.0 42-52 Mean Corpuscular Volume 84.7 80-9 8 Mean Corpuscular Hemoglobin 28.6 27.0-33.0 Mean Corpuscular HGB Conc 33.8 31 .0-36.0 Red Cell Distribution Width 13.0 11.0-16.0 Platelet Count 229 160-400 Mean Platelet Volume 11.1 9.4-12. 4 Neutrophils Percent Auto 50.6 45- 73 Imm Gran Pct Auto 0.3 0.0-0.4 Lymphocytes Percent Auto 38.8 20- 40 Monocytes Percent Auto 8.7 2-11 Eosinophils Percent Auto 1.3 0-4 Basophils Percent Auto 0.3 0-2 NRBC Pct Auto 0.0 0.0-0.2 Neutrophils Absolute Auto 3.2 2. 0-8.3 Imm Gran Abs Auto 0.02 0.00-0.03 Lymphocytes Absolute Auto 2.5 1. 2-4.9 Monocytes Absolute Auto 0.6 0.1- 1.2 Eosinophils Absolute Auto 0.1 0. 0-0.4 Basophils Absolute Auto 0.0 0.0- 0.2 NRBC Abs Auto 0.000 0.0-0.012 Comprehensive [place]. Panel Fast 2021-01-11 Sodium 140 135-145 Potassium 4.1 3.3-5.1 Chloride 108 96-108 Carbon Dioxide 26 22-29 Anion Gap 10 12-20 Blood Urea Nitrogen 14 9-16 Creatinine 0.90 0.5-1.4 Estimated Glomerular Filt Rate >60 Glucose Fasting 164 60-99 Calcium 9.1 8.4-10.2 Bilirubin Total 0.6 0.0-1.0 Aspartate Amino Transferase 20 5-37 Alanine Aminotransferase 32 0-4 0 Total Protein 6.4 6.5-8.0 Albumin Level 4.2 3.5-5.0 Alkaline Phosphatase 78 39-117 Lipid Panel 2021-01-11 Triglycerides 221 Cholesterol 150 LDL Cholesterol Calculated 79 HDL Cholesterol 27 Hemoglobin A1c 2021-01-11 Hemoglobin A1c % 6.8 Estimated Average Glucose 148 SARS-COV-2 PCR 2020-10-20 SARS-COV-2 PCR NOT DETECTED NOT DETECTED Complete Blood Count Auto Diff 2020-10-08 White Blood Count 4.8 4.8-10.8 Red Blood Count 5.73 4.60-5.80 Hemoglobin 16.5 14.0-18.0 Hematocrit 49.0 42-52 Mean Corpuscular Volume 85.5 80-9 8 Mean Corpuscular Hemoglobin 28.8 27.0-33.0 Mean Corpuscular HGB Conc 33.7 31 .0-36.0 Red Cell Distribution Width 12.6 11.0-16.0 Platelet Count 237 160-400 Mean Platelet Volume 10.6 9.4-12. 4 Neutrophils Percent Auto 50.6 45- 73 Imm Gran Pct Auto 0.2 0.0-0.4 Lymphocytes Percent Auto 39.2 20- 40 Monocytes Percent Auto 8.6 2-11 Eosinophils Percent Auto 1.0 0-4 Basophils Percent Auto 0.4 0-2 NRBC Pct Auto 0.0 0.0-0.2 Neutrophils Absolute Auto 2.4 2. 0-8.3 Imm Gran Abs Auto 0.01 0.00-0.03 Lymphocytes Absolute Auto 1.9 1. 2-4.9 Monocytes Absolute Auto 0.4 0.1- 1.2 Eosinophils Absolute Auto 0.1 0. 0-0.4 Basophils Absolute Auto 0.0 0.0- 0.2 NRBC Abs Auto 0.000 0.0-0.012 Comprehensive [place]. Panel Fast 2020-10-08 Sodium 141 135-145 Potassium 4.0 3.3-5.1 Chloride 109 96-108 Carbon Dioxide 25 22-29 Anion Gap 11 12-20 Blood Urea Nitrogen 15 9-16 Creatinine 0.96 0.5-1.4 Estimated Glomerular Filt Rate >60 Glucose Fasting 135 60-99 Calcium 9.0 8.4-10.2 Bilirubin Total 0.7 0.0-1.0 Aspartate Amino Transferase 21 5-37 Alanine Aminotransferase 32 0-4 0 Total Protein 6.9 6.5-8.0 Albumin Level 4.4 3.5-5.0 Alkaline Phosphatase 76 39-117 Lipid Panel 2020-10-08 Triglycerides 159 Cholesterol 157 LDL Cholesterol Calculated 98 HDL Cholesterol 28 H pylori Ag Stool 2020-10-08 H pylori Ag Stool SEE NOTE Hemoglobin A1c 2020-10-08 Hemoglobin A1c % 6.3 Estimated Average Glucose 134 REASON FOR VISIT annual exam, Followup, Left shoulder pain, Recent circumcision under general anesthesia, Hypertension, Diabetes, Obesity, Tobacco a pound, Hypertension, Diabetes, Obesity, Tobacco dependence, Benign prostatic hypertrophy, Followup, hypertension, Insulin-dependent diabetes mellitus, Obesity, Benign prostatic hypertrophy, annual exam, obesity, Essential Hypertension, Type 2 diabetes, BPH, tobacco dependence, follow up Diabetes, follow up, Hypertension, Obesity, BPH, Benign prostatic hypertrophy, Diabetes, Tobacco dependence, Obesity, Hypertension, Hypertension, Diabetes, Benign prostatic hypertrophy, Tobacco dependence, Obesity, Benign prostatic hypertrophy, Essential Hypertension, Obesity, type 2 diabetes, Essential Hypertension, Type 2 diabetes, obesity, tobacco dependence, benign prostatic hypertrophy, covid test negative , advised exposure to covid, hypertension, tobacco dependence, obesity, diabetes, Lab order, Prescription, ED, Essential Hypertension, obesity, diabetes, tobacco dep endence, erectile dysfunction, why needs amox RX, new patient [facility] Insurance Providers Health Insurance Type Health Plan Insurance Address Health Plan Insurance Phone Health Plan Insurance Name Health Plan Coverage Dates Member ID Patient Relationship to Subscriber Patient Address Patient Phone Patient Name Patient Date of Subscriber ID Subscriber Name Subscriber Date of Group No [employer] [address] [facility] [id number] [employer] self JURGEN ANTONIO [id number]
[2022-10-31] MEDS: Ketorolac Tromethamine 30 MG/ML VIAL IM (19:26)
== END 2022-10-31 19:31 | disposition home or self-care (01) ==
PROVIDERS: Physician Assistant; Emergency Provider Emergency Medicine; PCP Internal Medicine Medical Oncology
DX: M25.512 Pain in left shoulder (principal); E11.9 Type 2 diabetes mellitus without complications; I10 Essential (primary) hypertension; E78.5 Hyperlipidemia, unspecified; F17.210 Nicotine dependence, cigarettes, uncomplicated; Z79.02 Long term (current) use of antithrombotics/antiplatelets; Z79.899 Other long term (current) drug therapy; Z79.85 Long-term (current) use of injectable non-insulin antidiabetic drugs
CPT/HCPCS: 36415; 84484; 93005; 96372; 99283; 99284; J1885

== ENCOUNTER → 2022-11-16 14:46 | Outpatient (BNVA) | payer BC, MEDICAID, SELFPAY | PROVIDERS: PCP Internal Medicine Medical Oncology; Visit Provider Nurse Practitioner | DX: Z13.89 Encounter for screening for other disorder (principal) ==

== ENCOUNTER → 2023-01-09 13:53 | Outpatient (BNVA) | payer BC, MEDICAID, SELFPAY | PROVIDERS: PCP Internal Medicine Medical Oncology; Visit Provider Internal Medicine Endocrinology, Diabetes & Metabolism | DX: E11.65 Type 2 diabetes mellitus with hyperglycemia (principal); Z79.899 Other long term (current) drug therapy | CPT/HCPCS: 82947; 83036 ==

== ENCOUNTER 2023-01-18 09:22 | Outpatient (REF) | payer BC, OTHER, SELFPAY ==
[2023-01-18 09:39] LABS: MANUAL DIFF FLAG NO
[2023-01-18 11:04] LABS: Basophils Percent Auto 0.6 % (0-2); Eosinophils Absolute Auto 0.1 X10*3/uL (0.0-0.4); Eosinophils Percent Auto 1.6 % (0-4); Hematocrit 49.9 % (42.0-52.0); Hemoglobin 16.5 g/dl (14.0-18.0); Imm Gran Abs Auto 0.01 X10*3/uL (0.00-0.03); Imm Gran Pct Auto 0.2 % (0.0-0.4); Lymphocytes Absolute Auto 1.8 X10*3/uL (1.2-4.9); Lymphocytes Percent Auto 34.7 % (20-40); Mean Corpuscular HGB Conc 33.1 g/dl (31.0-36.0); Mean Corpuscular Volume 84.6 fL (80.0-98.0); Mean Platelet Volume 10.9 fL (9.4-12.4); Monocytes Absolute Auto 0.4 X10*3/uL (0.1-1.2); Monocytes Percent Auto 7.8 % (2-11); Neutrophils Absolute Auto 2.8 x10*3/uL (2.0-8.3); Neutrophils Percent Auto 55.1 % (45-73); Platelet Count 222 X10*3/uL (160-400); Red Cell Distribution Width 12.8 % (11.0-16.0); White Blood Count 5.1 X10*3/uL (4.8-10.8)
[2023-01-18 11:14] LABS: Estimated Average Glucose 131 mg/dL; Hemoglobin A1c % 6.2 %
[2023-01-18 12:29] LABS: Alanine Aminotransferase 34 U/L (0-40); Albumin Level 4.4 g/dL (3.5-5.0); Alkaline Phosphatase 75 U/L (39-117); Anion Gap 11 (12-20); Aspartate Amino Transferase 23 U/L (5-37); Bilirubin Total 0.6 mg/dL (0.0-1.0); Blood Urea Nitrogen 21 mg/dL (9-16); Calcium 8.8 mg/dL (8.4-10.2); Carbon Dioxide 23 mmol/L (22-29); Chloride 111 mmol/L (96-108); Cholesterol 174 mg/dL; Estimated Glomerular Filt Rate > 60; Glucose Fasting 118 mg/dL (60-99); HDL Cholesterol 28 mg/dL; LDL Cholesterol Calculated 99 mg/dl; Potassium 3.9 mmol/L (3.3-5.1); Sodium 141 mmol/L (135-145); Total Protein 7.2 g/dL (6.5-8.0); Triglycerides 239 mg/dL
[2023-01-18 13:35] LABS: Creatinine Urine 89.81 mg/dL; Microalbumin Urine < 5.0 mg/L
== END 2023-01-18 09:23 | disposition home or self-care (01) ==
LOC: HO.LAB 09:22
PROVIDERS: Visit Provider Internal Medicine Medical Oncology
DX: I10 Essential (primary) hypertension (principal); E11.9 Type 2 diabetes mellitus without complications; E66.9 Obesity, unspecified; N40.0 Benign prostatic hyperplasia without lower urinary tract symptoms
CPT/HCPCS: 36415; 80053; 80061; 82043; 83036; 85025

== ENCOUNTER 2023-05-10 10:59 | Outpatient (AMB) | payer BC, MEDICAID, SELFPAY ==
--- NOTE | 2023-05-10 11:06 | A.OFFVIS_ITS ---
Intake Vital Signs 3 05/10/23 11:08 Height 5 ft 7 in Weight 205 lb 14.588 oz BMI 32.2 BP 97/55 L Blood Pressure Location Lt brachial Position Sitting Pulse 87 Intake Visit Reasons: 6 mnth follow up Intake Note: Patient presents to in office visit today in 6 months follow up for colonoscopy screening. CC: Patient reports doing well, he states his PCP referred him to have a colonoscopy done. Office Administrator Required: No Accompanied by: Self / Same As Patient Allergies No Known Allergies [No Known Allergies*] Allergy (Verified 05/10/23 11:11) HPI 6 mnth follow up 2 HPI0 Details Assessment & Plan (1) Diabetic gastroparesis: Code(s): E11.43 - Type 2 diabetes mellitus with diabetic autonomic (poly)neuropathy; K31.84 - Gastroparesis Plan: PANAMANIAN He continues on his omeprazole and is Reglan 5 mg 4 times a day he says he has had absolutely no symptoms of heartburn dyspepsia or dysphagia since we started this regimen. He is not suffering any adverse effects whatsoever from the metoclopramide any only sometimes forgets to take it towards the end of the day. He has also been working steadily to improve his diabetes control. He was started recently on Trulicity and he has lost a couple of lb and he is told that it is going in the right direction although he is not exactly sure what his last A1c is. The talking about putting him on Mounjaro as well. He is having some unevenness in his bowel movements probably because some of these medications slow down gastric motility and he finds that he will move his bowels for a day or so but then he will have constant bowel movements all day long. At this point this does not bother him but if it does we can talk about controlling at a later date. He is feeling quite optimistic about managing his health. He is agreeable to six-month follow-up. 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: Code(s): K22.70 - Mai's esophagus without dysplasia Medications: Refilled metoclopramide HCl (Reglan) 5 mg PO QIDACHS 1 20 tabs 6RF E11.43 - Type 2 di abetes mellitus wi th diabetic autono bhavin (poly)neuropat hy, K31.84 - Gastr oparesis omeprazole Take 30 mins before me als 40 mg PO BID 90 d ays 180 caps 2RF K21.9 - Gastro-eso phageal reflux dis ease without esoph agitis, K22.10 - U lcer of esophagus without bleeding Assessment & Plan (1) Diabetic gastroparesis: Code(s): E11.43 - Type 2 diabetes mellitus with diabetic autonomic (poly)neuropathy; K31.84 - Gastroparesis Plan: PANAMANIAN He continues on his omeprazole and is Reglan 5 mg 4 times a day he says he has had absolutely no symptoms of heartburn dyspepsia or dysphagia since we started this regimen. He is not suffering any adverse effects whatsoever from the metoclopramide any only sometimes forgets to take it towards the end of the day. He has also been working steadily to improve his diabetes control. He was started recently on Trulicity and he has lost a couple of lb and he is told that it is going in the right direction although he is not exactly sure what his last A1c is. The talking about putting him on Mounjaro as well. He is having some unevenness in his bowel movements probably because some of these medications slow down gastric motility and he finds that he will move his bowels for a day or so but then he will have constant bowel movements all day long. At this point this does not bother him but if it does we can talk about controlling at a later date. He is feeling quite optimistic about managing his health. He is agreeable to six-month follow-up. 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 Ayala dated 03/20/23 for patient to have a screening colo.? You are already treating this patient.? Please let front office know how to proceed with scheduling. Thank you. LABS Laboratory Tests 01/09/23 01/18/23 01/18/23 14:15 09:36 09:36 WBC 5.1 Hgb 16.5 Hct 49.9 Plt Count 222 Estimated GFR > 60 Hgb A1c (Clinic) 6.6 H Total Bilirubin 0.6 AST 23 ALT 34 Alkaline Phosphata se 75 TODAY'S VISIT PANAMANIAN He continues to do well on his omeprazole and raglan. He asks if he can stop these medications since his last 2 endoscopies did not show outright SSBE, but I explain that paresis does not usually go away once it starts and he is a high risk for esophageal cancer that is easier to prevent than to treat. His PCP requests a colonoscopy. He will need 2 day off for the procedure and I am agreeable to give him a note. He would like it around 12 to early after noon. He has some IBS-M with the Truliciy and metformin as s/e but he is managing this okay, his upper stomach problems are well controlled. He denies any cardiac or respiratory problems. There are no prior problems with anesthesia or sedation. No ID problems. There is no known FHX of crc or polyps. [facility] Medical History Uncontrolled type 2 diabetes mellitus with hyperglycemia Hypertension GERD (gastroesophageal reflux disease) Elevated cholesterol Diabetes Surgical History History of esophagogastroduodenoscopy (EGD) History of bladder endoscopy Hx of cholecystectomy History of ankle surgery Hx of knee surgery Family History Mother High blood pressure HX: breast cancer Father Diabetes Social History Alcohol intake: current Alcohol intake frequency: does not drink Patient Tobacco Use Status: Current everyday Tobacco user Tobacco use type: Cigarette Cigarette Packs Per Day: 0.5 Cigarettes Per Day: 10.0 Years Smoked: 28 Review of Systems Const Denies fatigue, Denies fever(s), Denies night sweats, Denies poor appetite and Denies weight loss ENT Reports Normal hearing present, Denies dental pain, Denies dysphagia, Denies hearing loss, Denies mouth pain, Denies odynophagia, Denies throat swelling, Denies tongue swelling and Reports other (Dentition adequate) Card Reports no additional complaints Resp Reports no additional complaints GI Denies abdominal pain, Denies melena, Denies bloating, Denies hematochezia, Denies constipation, Denies GI cramping, Denies dysphagia, Denies excessive flatus, Reports early satiety, Reports heartburn, Denies diarrhea, Denies nausea, Denies odynophagia, Denies vomiting and Denies hematemesis Skin/Breast Denies pruritus, Denies lesions, Denies rash and Denies jaundice Neuro Reports Normal hearing present and Denies Abnormal speech present Endo Denies fatigue Aller/Immun Denies throat swelling and Denies tongue swelling Physical Exam Vital Signs: Last Vital Signs Pulse 87 05/10/23 11:08 BP 97/55 L 05/10/23 11:08 BMI result Body Mass Index 32.2 Const General: cooperative, no acute distress, well developed and well groomed Nutritional Appearance: well nourished and obese Orientation/consciousness: oriented to person, oriented to place and oriented to time Limitations: No language barrier HEENT Head: Yes normocephalic and Yes atraumatic Eyes General: appearance normal, both eyes and all related structures Pupils: Equal, round and reactive pupils present Neck Neck: Yes normal visual inspection and Yes no lymphadenopathy Thyroid: Thyroid normal Resp Effort & Inspection: normal respiratory effort and able to speak in complete sentences Auscultation: clear to auscultation bilaterally Cardio Rate: regular rate Rhythm: regular rhythm Heart sounds: Normal, physiologic split S2 sound present Peripheral pulses: radial pulses present and posterior tibial pulses present GI Inspection: No distended, No Abdominal panniculus present and Yes obesity Palpation (GI): Soft to palpation, nontender, no guarding, not rigid and No hepatosplenomegaly present Percussion: Yes normal to percussion Auscultation: normal bowel sounds Rectal Exam - Male: Yes deferred Abdomen image: 2 1. lap scars remote 2. Skin General skin exam: no rashes or lesions noted, turgor normal, skin not dry, no jaundice, No spider nevi and no striae Rashes: no rashes Nails: normal Neuro General: oriented to person, oriented to place and oriented to time Cranial nerves: Yes Equal, round and reactive pupils present and Yes Normal hearing present Speech: No Abnormal speech present Extrem General: Yes normal to inspection, No clubbing, No cyanosis and No edema Psych Appearance: grossly normal and well kempt Mental Status: mental status grossly normal Speech and movement: Normal speech and movement present Affect: normal affect Attitude: cooperative Thought process: Normal thought process present and not confabulating Thought content: Normal thought content present Insight: Fair insight present (Psych) Judgement: Fair judgement present (Psych) Assessment & Plan Assessment & Plan (1) Pre-op examination: Code(s): Z01.818 - Encounter for other preprocedural examination Plan: He continues to do well on his omeprazole and raglan. He asks if he can stop these medications since his last 2 endoscopies did not show outright SSBE, but I explain that paresis does not usually go away once it starts and he is a high risk for esophageal cancer that is easier to prevent than to treat. His PCP requests a colonoscopy. He will need 2 day off for the procedure and I am agreeable to give him a note. He would like it around 12 to early after noon. He has some IBS-M with the Truliciy and metformin as s/e but he is managing this okay, his upper stomach problems are well controlled. He denies any cardiac or respiratory problems. There are no prior problems with anesthesia or sedation. No ID problems. There is no known FHX of crc or polyps. 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: Code(s): K22.70 - Mai's esophagus without dysplasia Orders: Orders 2 Colonoscopy - GI Use Only Today Z01.818 - Encounter for other preprocedural examination Medications: New 2 peg 3350-electrolytes 236-22.74-6.74 -5.86 gram (Golytely) until fecal effluent is clear; do not exceed a total volume of 2,000 mL 240 mL PO Q10M 1 day 4,000 mL 0RF Z12.11 - Encounter for screening for malignant neoplasm of colon Coding Level of Care Code Est Pt Level 4 (41638) Diagnoses Pre-op examination Z01.818 Erosive gastritis K29.60 GERD (gastroesophageal reflux disease) K21.9 Diabetic gastroparesis E11.43; K31.84 Erosive esophagitis K22.10 Mai's esophagus determined by biopsy K22.70
[2023-05-10 11:08] VITALS: BP 97/55; PULSE 87; BMI 32.2
== END 2023-05-10 11:39 | disposition home or self-care (01) ==
PROVIDERS: Visit Provider Nurse Practitioner
DX: Z01.818 Encounter for other preprocedural examination (principal); Z12.11 Encounter for screening for malignant neoplasm of colon; E11.43 Type 2 diabetes mellitus with diabetic autonomic (poly)neuropathy; K31.84 Gastroparesis; K22.10 Ulcer of esophagus without bleeding; K22.70 Barrett's esophagus without dysplasia
CPT/HCPCS: S0285

== ENCOUNTER → 2023-05-10 10:59 | Outpatient (BNVA) | payer BC, MEDICAID, SELFPAY | PROVIDERS: Visit Provider Nurse Practitioner ==

== ENCOUNTER 2023-07-05 08:42 | Outpatient (REF) | payer BC, OTHER, SELFPAY ==
[2023-07-05 09:05] LABS: MANUAL DIFF FLAG NO
[2023-07-05 10:03] LABS: Basophils Percent Auto 0.3 % (0-2); Eosinophils Percent Auto 0.7 % (0-4); Hematocrit 49.4 % (42.0-52.0); Hemoglobin 16.4 g/dl (14.0-18.0); Imm Gran Abs Auto 0.01 X10*3/uL (0.00-0.03); Imm Gran Pct Auto 0.2 % (0.0-0.4); Mean Corpuscular HGB Conc 33.2 g/dl (31.0-36.0); Mean Corpuscular Hemoglobin 27.9 pg (27.0-33.0); Mean Corpuscular Volume 84.2 fL (80.0-98.0); Mean Platelet Volume 10.8 fL (9.4-12.4); Monocytes Absolute Auto 0.5 X10*3/uL (0.1-1.2); Monocytes Percent Auto 8.2 % (2-11); Neutrophils Absolute Auto 3.2 x10*3/uL (2.0-8.3); Neutrophils Percent Auto 56.6 % (45-73); Platelet Count 231 X10*3/uL (160-400); Red Blood Count 5.87 X10*6/uL (4.60-5.80); Red Cell Distribution Width 13.2 % (11.0-16.0); White Blood Count 5.7 X10*3/uL (4.8-10.8)
[2023-07-05 10:31] LABS: Estimated Average Glucose 117 mg/dL; Hemoglobin A1c % 5.7 % (<6.0)
[2023-07-05 10:36] LABS: Alanine Aminotransferase 24 U/L (0-40); Albumin Level 4.3 g/dL (3.5-5.0); Alkaline Phosphatase 71 U/L (39-117); Anion Gap 11 (12-20); Aspartate Amino Transferase 18 U/L (5-37); Bilirubin Total 0.6 mg/dL (0.0-1.0); Blood Urea Nitrogen 16 mg/dL (9-16); Calcium 9.1 mg/dL (8.4-10.2); Carbon Dioxide 25 mmol/L (22-29); Chloride 108 mmol/L (96-108); Cholesterol 142 mg/dL (<200); Estimated Glomerular Filt Rate > 60; Glucose Fasting 110 mg/dL (60-99); HDL Cholesterol 28 mg/dL (>40); LDL Cholesterol Calculated 85 mg/dL (<100); Potassium 3.7 mmol/L (3.3-5.1); Sodium 140 mmol/L (135-145); Total Protein 6.7 g/dL (6.5-8.0); Triglycerides 148 mg/dL (<150)
[2023-07-05 12:23] LABS: Creatinine Urine 153.69 mg/dL; Microalbum/Creatinine Ratio Ur 5.2 ug/mg cr (<30)
== END 2023-07-05 08:43 | disposition home or self-care (01) ==
LOC: HO.LAB 08:42
PROVIDERS: PCP Internal Medicine Medical Oncology; Visit Provider Internal Medicine Medical Oncology
DX: I10 Essential (primary) hypertension (principal); E11.9 Type 2 diabetes mellitus without complications; E66.9 Obesity, unspecified
CPT/HCPCS: 36415; 80053; 80061; 82043; 82570; 83036; 85025

== ENCOUNTER 2023-07-12 07:33 | Day surgery (SDC) | payer BC, OTHER, SELFPAY ==
[2023-07-10 13:17] VITALS: BMI 32.1
--- NOTE | 2023-07-11 09:39 | HO.ANESPROP2 ---
Documented by User: Rain Hemphill NP 07/11/23 09:41 HPI - Anesthesia Eval Consult details Narrative: 47yo M for Colonoscopy Anesthesia Pre-Procedure Meds Is the patient on any of the following meds?: Dulaglutide (Trulicity) PMFSH Active Problems Active Problems: All Active Problems (Updated 07/10/23 @ 13:14 by Kinza Gonzalez RN) Pre-op examination (Acute) Erosive gastritis (Acute) Diabetic gastroparesis (Acute) Mai's esophagus determined by biopsy (Acute) Erosive esophagitis (Acute) GERD (gastroesophageal reflux disease) (Acute) Uncontrolled type 2 diabetes mellitus with hyperglycemia (Acute) Past Medical History Medical History (Updated 07/10/23 @ 13:14 by Kinza Gonzalez RN) Uncontrolled type 2 diabetes mellitus with hyperglycemia Hypertension GERD (gastroesophageal reflux disease) Elevated cholesterol Diabetes Family History Family History Mother High blood pressure HX: breast cancer Father Diabetes Surgical History Surgical History History of esophagogastroduodenoscopy (EGD) History of bladder endoscopy Hx of cholecystectomy History of ankle surgery Hx of knee surgery History of Problems with Anesthesia: No Social History Social History Alcohol intake: current Alcohol intake frequency: does not drink Patient Tobacco Use Status: Current everyday Tobacco user Tobacco use type: Cigarette Cigarette Packs Per Day: 0.5 Cigarettes Per Day: 10.0 Years Smoked: 28 Advance Directives: No Advance Directives Information Provided: Yes Meds Allergies Allergy/AdvReac Type Severity Reaction Status Date / Time No Known Allergies Allergy Verified 05/10/23 11:11 [No Known Allergies*] Home Medications Medication Instructions Recorded Confirmed Last Taken Type atorvastatin 10 mg tablet 10 mg PO DAILY 05/20/21 07/10/23 Unknown History lisinopril 20 mg tablet 20 mg PO DAILY 05/20/21 07/10/23 Unknown History loratadine 10 mg tablet (Claritin) 10 mg PO DAILY 05/20/21 07/10/23 Unknown History ciclopirox 0.77 % topical cream 1 appl topical DAILY 12/13/21 07/10/23 Unknown History tadalafil 5 mg tablet (Cialis) 5 mg PO DAILY 04/05/22 07/10/23 Unknown History betamethasone dipropionate 0.05 % 1 appl topical BID 04/20/22 07/10/23 Unknown History topical cream dapagliflozin propaned 10 1 tab PO DAILY 07/14/22 07/10/23 Unknown History mg-metformin ER 1,000 mg tablet,ext rel 24hr (Xigduo XR) Exam Height,Weight and Vital Signs: Height 5 ft 7 in Weight 92.986 kg Pertinent Lab Results Pertinent Lab Results: Laboratory Tests 07/05/23 09:03 WBC 5.7 Hgb 16.4 Hct 49.4 Plt Count 231 Sodium 140 Potassium 3.7 Chloride 108 Carbon Dioxide 25 BUN 16 Creatinine 0.87 Assessment and Plan Assessment Anesthesia Assessment: Chart Reviewed Final Anesthetic Review History of Problems with Anesthesia: No Documented by User: Evert Goyal MD 07/12/23 08:22 HPI - Anesthesia Eval Anesthesia Pre-Procedure Meds If Yes to any meds - educate patient: Pt education - increased risk of aspiration PMFSH Past Medical History Medical History (Updated 07/10/23 @ 13:14 by Kinza Gonzalez RN) Uncontrolled type 2 diabetes mellitus with hyperglycemia Hypertension GERD (gastroesophageal reflux disease) Elevated cholesterol Diabetes Family History Family History Mother High blood pressure HX: breast cancer Father Diabetes Surgical History Surgical History History of esophagogastroduodenoscopy (EGD) History of bladder endoscopy Hx of cholecystectomy History of ankle surgery Hx of knee surgery Social History Social History Alcohol intake: current Alcohol intake frequency: does not drink Patient Tobacco Use Status: Current everyday Tobacco user Tobacco use type: Cigarette Cigarette Packs Per Day: 0.5 Cigarettes Per Day: 10.0 Years Smoked: 28 Advance Directives: No Advance Directives Information Provided: Yes Meds Allergies Allergy/AdvReac Type Severity Reaction Status Date / Time No Known Allergies Allergy Verified 05/10/23 11:11 [No Known Allergies*] Home Medications Medication Instructions Recorded Confirmed Last Taken Type atorvastatin 10 mg tablet 10 mg PO DAILY 05/20/21 07/10/23 Unknown History lisinopril 20 mg tablet 20 mg PO DAILY 05/20/21 07/10/23 Unknown History loratadine 10 mg tablet (Claritin) 10 mg PO DAILY 05/20/21 07/10/23 Unknown History ciclopirox 0.77 % topical cream 1 appl topical DAILY 12/13/21 07/10/23 Unknown History tadalafil 5 mg tablet (Cialis) 5 mg PO DAILY 04/05/22 07/10/23 Unknown History betamethasone dipropionate 0.05 % 1 appl topical BID 04/20/22 07/10/23 Unknown History topical cream dapagliflozin propaned 10 1 tab PO DAILY 07/14/22 07/10/23 Unknown History mg-metformin ER 1,000 mg tablet,ext rel 24hr (Xigduo XR) Exam Airway Mallampati Class: II TM Dist: >3cm Neck ROM: Limited Heart: rrr Lungs: cta Assessment and Plan Final Anesthetic Review NPO: Yes ASA Class: III Final Preanesthetic Review: No Changes in Pt Med Stat, Meds/Allgs Chart Reviewed, Consent Obtained/Reviewed and Anes Risks/Benef Reviewed Patient Risk: Intermediate Procedure Risk: Intermediate Anesthetic Plan Anesthetic Plan: MAC: and Agree w/ Assess. and Plan Disposition: Standard PACU
[2023-07-12 08:34] VITALS: BMI 31.8
[2023-07-12 08:58] VITALS: BP 130/79; PULSE 69; RESP 16; TEMP 36.2; O2SAT 98
[2023-07-12] MEDS: Lactated Ringers 1,000 ML 100 ML IVCONT (09:00)
[2023-07-12 09:05] LABS: Glucose, Whole Blood 118 mg/dL (60-115)
--- NOTE | 2023-07-12 09:34 | P.HPSUR_ITS ---
Pre-Procedural Eval Section A Date of Service: 07/12/23 Section B Chief Complaint: Encounter for screening for malignant neoplasm of Relevant Family History (Specify if Yes): No Relevant Social History: Tobacco Use Present Medications: see Short Stay Collaborative assessment Medical History: Significant History (Uncontrolled type 2 diabetes mellitus with hyperglycemia Hypertension GERD (gastroesophageal reflux disease) Elevated cholesterol Diabetes) History of Previous Operations: Relevant previous surgery/procedure and date(s) (History of esophagogastroduodenoscopy (EGD) History of bladder endoscopy Hx of cholecystectomy History of ankle surgery Hx of knee surgery) Allergies: Allergies Allergy/AdvReac Type Severity Reaction Status Date / Time No Known Allergies Allergy Verified 05/10/23 11:11 [No Known Allergies*] Review of Systems Sugical H&P ROS: Negative: Constitution, Cardiovascular, Respiratory, Neurological, Psychiatric, Hem-Onc, Allergic/Immunologic, Gastrointestinal, Genitourinary, Musculoskeletal, Integumentary, Endocrine and E yes/Ears/Nose/Throat Exam Surgical H&P Exam: Normal: HEENT, Normal: Heart, Normal: Lungs, Normal: Extremities, Normal: Abdomen, Normal: Skin and Normal: Neurological Plan Diagnosis/Plan: Unchanged I have reviewed the history and physical and performed a pertinent physical examination on my patient. No changes have occurred unless specified. Time Spent With Patient Time: Total time managing care of this patient today ____ minutes.
[2023-07-12 10:33] VITALS: BP 90/57; PULSE 70; RESP 13; TEMP 36.3; O2SAT 99
--- NOTE | 2023-07-12 10:35 | W.PM.OPN ---
Operative Note Operative Note Date of Service: 07/12/23 Narrative: Operative Information Procedure Description: Colonoscopy Indication: screening Anesthesia: MAC COLONOSCOPY Instrument: Olympus variable stiffness pediatric scope 190L Colonoscopy Monitoring: Vital signs and clinical assessment, continuous EKG monitoring, Pulse oximetry, Carbon Dioxide monitoring and blood pressure monitoring were done throughout the procedure. Colon withdrawal time was 12 minutes. Procedure: The patient was placed in the left lateral decubitis position and pre-procedure medications were administered. After a digital rectal examination of the ano-rectum, the video colonoscope was inserted into the rectum and advanced through the colon to the cecum/TI. The colonoscope was slowly withdrawn in a retrograde panoramic fashion and the colon mucosa was carefully examined including a retroflexed view of the rectum. Findings and interventions are described below. Procedure Difficulty: easy Findings: Terminal Ileum- erythema with erosion noted, bx taken Cecum:normal, bx taken Ascending Colon: normal, bx taken, x1 sessile polyp 4-6 mm removed with cold forceps, 6-8 mm sessile polyp removed with cold snare Transverse Colon -normal Descending Colon:normal Sigmoid Colon: mild diverticulosis Rectum: Retroflexion with medium sized internal hemorrhoids, grade I Anorectum - normal Colon preparation: [place] Bowel Preparation Scale Right colon; 3 Transverse colon: 3 Left colon; 3 (0 = Unprepared colon segment with mucosa not seen due to solid stool that cannot be cleared. 1 = Portion of mucosa of the colon segment seen, but other areas of the colon segment not well seen due to staining, residual stool and/or opaque liquid. 2 = Minor amount of residual staining, small fragments of stool and/or opaque liquid, but mucosa of colon segment seen well. 3 = Entire mucosa of colon segment seen well with no residual staining, small fragments of stool or opaque liquid) Impression and Post Procedure Diagnosis: polyps internal hemorrhoids diverticular disease ileitis Plan: High fiber diet leaflet Avoid straining at stool, epsom salts and sitz bath, anusol supps or cream Repeat Colonoscopy in 5 years due to polyps or earlier if clinically indicated check nsaid hx and if any sx suggestive of IBD smoking cessation Above findings were reviewed with the patient and relevant handouts were provided if indicated.
[2023-07-12 10:48] VITALS: BP 100/68; PULSE 70; RESP 16; TEMP 36.1; O2SAT 99
== END 2023-07-12 11:48 | disposition home or self-care (01) ==
PROVIDERS: PCP Internal Medicine Medical Oncology; Visit Provider Internal Medicine Gastroenterology
PROC: 0DJD8ZZ Inspection of Lower Intestinal Tract, Via Natural or Artificial Opening Endoscopic (ICD-10-PCS; CPT 45378; principal; 2023-07-12 11:10)
DX: Z12.11 Encounter for screening for malignant neoplasm of colon (principal); K63.5 Polyp of colon; K62.1 Rectal polyp; K52.9 Noninfective gastroenteritis and colitis, unspecified; K57.30 Diverticulosis of large intestine without perforation or abscess without bleeding; K64.0 First degree hemorrhoids; E11.43 Type 2 diabetes mellitus with diabetic autonomic (poly)neuropathy; K31.84 Gastroparesis
CPT/HCPCS: 45385; 45380; 82947; 88305; J2405; J2704; J2765

== ENCOUNTER → 2023-07-12 07:33 | Outpatient (BNV) | payer BC, SELFPAY | PROVIDERS: PCP Internal Medicine Medical Oncology; Visit Provider Internal Medicine Gastroenterology | DX: Z12.11 Encounter for screening for malignant neoplasm of colon (principal); D12.2 Benign neoplasm of ascending colon; K64.0 First degree hemorrhoids; K57.30 Diverticulosis of large intestine without perforation or abscess without bleeding; K52.9 Noninfective gastroenteritis and colitis, unspecified | CPT/HCPCS: 45380; 45385 ==

== ENCOUNTER 2023-08-07 08:59 | Outpatient (AMB) | payer BC, MEDICAID, SELFPAY ==
[2023-08-07 09:02] VITALS: BP 106/64; PULSE 79; BMI 31.8
--- NOTE | 2023-08-07 09:02 | MHC.OFFVIS ---
Intake Vital Signs 08/07/23 09:02 Height 5 ft 7 in Weight 203 lb 4.259 oz BMI 31.8 BP 106/64 Blood Pressure Location Lt brachial Position Sitting Pulse 79 Intake Visit Reasons: S/p colon Intake Note: Patient presents to in office visit today s/p colonoscopy. CC: Patient underwent colonoscopy on 07/[address] Garcia. He reports doing well and denies having any GI symptoms or concerns today. 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 He asks if he can stop these medications since his last 2 endoscopies did not show outright SSBE, but I explain that paresis does not usually go away once it starts and he is a high risk for esophageal cancer that is easier to prevent than to treat. His PCP requests a colonoscopy. He will need 2 day off for the procedure and I am agreeable to give him a note. He would like it around 12 to early after noon. He has some IBS-M with the Truliciy and metformin as s/e but he is managing this okay, his upper stomach problems are well controlled. He denies any cardiac or respiratory problems. There are no prior problems with anesthesia or sedation. No ID problems. There is no known FHX of crc or polyps. 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: Code(s): K22.70 - Mai's esophagus without dysplasia Orders: Orders Colonoscopy - GI Use Only Today Z01.818 - Encounter for other preprocedural examination Medications: New peg 3350-electrolytes 236-22.74-6.74 -5.86 gram (Golytely) until fecal effluent is clear; do not exceed a total volume of 2,000 mL 240 mL PO Q10M 1 day 4,000 mL 0RF Z12.11 - Encounter for screening for malignant neoplasm of colon COLONOSCOPY 07/16/23 Findings: Terminal Ileum- erythema with erosion noted, bx taken Cecum:normal, bx taken Ascending Colon: normal, bx taken, x1 sessile polyp 4-6 mm removed with cold forceps, 6-8 mm sessile polyp removed with cold snare Transverse Colon -normal Descending Colon:normal Sigmoid Colon: mild diverticulosis Rectum: Retroflexion with medium sized internal hemorrhoids, grade I Anorectum - normal Impression and Post Procedure Diagnosis: polyps internal hemorrhoids diverticular disease ileitis Plan: High fiber diet leaflet Avoid straining at stool, epsom salts and sitz bath, anusol supps or cream Repeat Colonoscopy in 5 years due to polyps or earlier if clinically indicated check nsaid hx and if any sx suggestive of IBD smoking cessation BIOPSY. Addendum #1 (A): Deeper tissue levels: Diagnosis unchanged. Electronically Signed By: Darcie Camargo 07/16/23 1320 Diagnosis A. Colon, ascending, 2 polyps: A single fragment of colonic mucosa with hyperplastic epithelium without dysplasia, and 2 fragments of colonic mucosa with no specific change (see comment). B. Terminal ileum, biopsy: Ileal mucosa with no specific change; no ileitis, granulomas or dysplasia. C. Colon, right, biopsy: Colonic mucosa with no specific change; no colitis, granulomas or dysplasia. D. Colon, rectal polyp: Hyperplastic polyp. Comment: (A): A sessile serrated lesion cannot be completely excluded and endoscopic follow-up is warranted. Deeper tissue levels pending addendum to follow TODAY'S VISIT TAMAZIGHT The procedure should be repeated in 5 years due to 1 of the polyp being indeterminate. The other was hyperplastic. The procedure was well tolerated. The results were explained and the patient is agreeable to the follow-up interval as stated. The bowel pattern has returned to normal. Education was provided to tell any 1st degree relatives about their findings to be sure that they are screened by age 45. Educated that they will be put on a recall list when it is time for their repeat scope but should they move out of state or away from the hospital they will need to remember along with their primary to repeat the procedure in a timely fashion to avoid any adverse complications. There is absolutely no family history of Crohn's disease or ulcerative colitis of the patient has no ongoing or recurrent diarrhea except for when he was titrating his Trulicity. He is only using the reglan 3 times a day and is well controlled with this. I had increased it to 5 times a day to give him extra doses in case he was started on Mounjaro which likely would have slow down his stomach quite a lot more than the Trulicity. However his numbers have been good and he has actually been discharged from endocrinology back to his primary care and he will continue on Trulicity. He has had no HB since this and his omeprazole 40mg bid. ROV 6 mos. PFSH Medical History Uncontrolled type 2 diabetes mellitus with hyperglycemia Hypertension GERD (gastroesophageal reflux disease) Elevated cholesterol Diabetes Surgical History (Updated 08/07/23 @ 09:28 by DYLAN Bateman) H/O colonoscopy History of esophagogastroduodenoscopy (EGD) History of bladder endoscopy Hx of cholecystectomy History of ankle surgery Hx of knee surgery Family History Mother High blood pressure HX: breast cancer Father Diabetes Social History Alcohol intake: current Alcohol intake frequency: does not drink Patient Tobacco Use Status: Current everyday Tobacco user Tobacco use type: Cigarette Cigarette Packs Per Day: 0.5 Cigarettes Per Day: 10 Years Smoked: 28 Review of Systems Const Denies fatigue, Denies fever(s), Denies night sweats, Denies poor appetite and Denies weight loss ENT Reports Normal hearing present, Denies dental pain, Denies dysphagia, Denies hearing loss, Denies mouth pain, Denies odynophagia, Denies throat swelling, Denies tongue swelling and Reports other (Dentition adequate) Card Reports no additional complaints Resp Reports no additional complaints GI Denies abdominal pain, Denies melena, Denies bloating, Denies hematochezia, Denies constipation, Denies GI cramping, Denies dysphagia, Denies excessive flatus, Reports early satiety, Reports heartburn, Denies diarrhea, Denies nausea, Denies odynophagia, Denies vomiting and Denies hematemesis Skin/Breast Denies pruritus, Denies lesions, Denies rash and Denies jaundice Neuro Reports Normal hearing present and Denies Abnormal speech present Endo Denies fatigue Aller/Immun Denies throat swelling and Denies tongue swelling Physical Exam Vital Signs: Last Vital Signs Pulse 79 08/07/23 09:02 BP 106/64 08/07/23 09:02 BMI result Body Mass Index 31.8 Const General: cooperative, no acute distress, well developed and well groomed Nutritional Appearance: well nourished and obese Orientation/consciousness: oriented to person, oriented to place and oriented to time Limitations: No language barrier HEENT Head: Yes normocephalic and Yes atraumatic Eyes General: appearance normal, both eyes and all related structures Pupils: Equal, round and reactive pupils present Neck Neck: Yes normal visual inspection and Yes no lymphadenopathy Thyroid: Thyroid normal Resp Effort & Inspection: normal respiratory effort and able to speak in complete sentences Auscultation: clear to auscultation bilaterally Cardio Rate: regular rate Rhythm: regular rhythm Heart sounds: Normal, physiologic split S2 sound present Peripheral pulses: radial pulses present and posterior tibial pulses present GI Inspection: No distended, No Abdominal panniculus present and Yes obesity Palpation (GI): Soft to palpation, nontender, no guarding, not rigid and No hepatosplenomegaly present Percussion: Yes normal to percussion Auscultation: normal bowel sounds Rectal Exam - Male: Yes deferred Skin General skin exam: no rashes or lesions noted, turgor normal, skin not dry, no jaundice, No spider nevi and no striae Rashes: no rashes Nails: normal Neuro General: oriented to person, oriented to place and oriented to time Cranial nerves: Yes Equal, round and reactive pupils present and Yes Normal hearing present Speech: No Abnormal speech present Extrem General: Yes normal to inspection, No clubbing, No cyanosis and No edema Psych Appearance: grossly normal and well kempt Mental Status: mental status grossly normal Speech and movement: Normal speech and movement present Affect: normal affect Attitude: cooperative Thought process: Normal thought process present and not confabulating Thought content: Normal thought content present Insight: Limited insight present (Psych) Judgement: Limited judgement present (Psych) Results Reviewed Results Reviewed: COLONOSCOPY 07/16/23 Findings: Terminal Ileum- erythema with erosion noted, bx taken Cecum:normal, bx taken Ascending Colon: normal, bx taken, x1 sessile polyp 4-6 mm removed with cold forceps, 6-8 mm sessile polyp removed with cold snare Transverse Colon -normal Descending Colon:normal Sigmoid Colon: mild diverticulosis Rectum: Retroflexion with medium sized internal hemorrhoids, grade I Anorectum - normal Impression and Post Procedure Diagnosis: polyps internal hemorrhoids diverticular disease ileitis Plan: High fiber diet leaflet Avoid straining at stool, epsom salts and sitz bath, anusol supps or cream Repeat Colonoscopy in 5 years due to polyps or earlier if clinically indicated check nsaid hx and if any sx suggestive of IBD smoking cessation BIOPSY. Addendum #1 (A): Deeper tissue levels: Diagnosis unchanged. Electronically Signed By: Darcie Camargo 07/16/23 1320 Diagnosis A. Colon, ascending, 2 polyps: A single fragment of colonic mucosa with hyperplastic epithelium without dysplasia, and 2 fragments of colonic mucosa with no specific change (see comment). B. Terminal ileum, biopsy: Ileal mucosa with no specific change; no ileitis, granulomas or dysplasia. C. Colon, right, biopsy: Colonic mucosa with no specific change; no colitis, granulomas or dysplasia. D. Colon, rectal polyp: Hyperplastic polyp. Comment: (A): A sessile serrated lesion cannot be completely excluded and endoscopic follow-up is warranted. Deeper tissue levels pending addendum to follow Assessment & Plan Assessment & Plan (1) Diabetic gastroparesis: Code(s): E11.43 - Type 2 diabetes mellitus with diabetic autonomic (poly)neuropathy; K31.84 - Gastroparesis (2) Erosive gastritis: Code(s): K29.60 - Other gastritis without bleeding Plan The procedure should be repeated in 5 years due to 1 of the polyp being indeterminate. The other was hyperplastic. The procedure was well tolerated. The results were explained and the patient is agreeable to the follow-up interval as stated. The bowel pattern has returned to normal. Education was provided to tell any 1st degree relatives about their findings to be sure that they are screened by age 45. Educated that they will be put on a recall list when it is time for their repeat scope but should they move out of state or away from the hospital they will need to remember along with their primary to repeat the procedure in a timely fashion to avoid any adverse complications. There is absolutely no family history of Crohn's disease or ulcerative colitis of the patient has no ongoing or recurrent diarrhea except for when he was titrating his Trulicity. He is only using the reglan 3 times a day and is well controlled with this. I had increased it to 5 times a day to give him extra doses in case he was started on Mounjaro which likely would have slow down his stomach quite a lot more than the Trulicity. However his numbers have been good and he has actually been discharged from endocrinology back to his primary care and he will continue on Trulicity. He has had no HB since this and his omeprazole 40mg bid. ROV 6 mos. Medications: Changed From metoclopramide HCl (Reglan) 5 mg PO .5 times a day 150 tabs 6RF E11.43 - Type 2 diabetes mellitus with diabetic autonomic (poly)neuropathy, K31.84 - Gastroparesis To metoclopramide HCl (Reglan) 5 mg PO .tidac 150 tabs 6RF E11.43 - Type 2 diabetes mellitus with diabetic autonomic (poly)neuropathy, K31.84 - Gastroparesis Refilled omeprazole Take 30 mins before meals 40 mg PO BID 90 days 180 caps 2RF K21.9 - Gastro-esophageal reflux disease without esophagitis, K22.10 - Ulcer of esophagus without bleeding Coding Level of Care Code Est Pt Level 4 (81057) Diagnoses Diabetic gastroparesis E11.43; K31.84 Erosive gastritis K29.60
== END 2023-08-07 10:05 | disposition home or self-care (01) ==
PROVIDERS: PCP Internal Medicine Medical Oncology; Visit Provider Nurse Practitioner
DX: E11.43 Type 2 diabetes mellitus with diabetic autonomic (poly)neuropathy (principal); K31.84 Gastroparesis; K29.60 Other gastritis without bleeding
CPT/HCPCS: 99214

== ENCOUNTER → 2023-08-07 08:59 | Outpatient (BNVA) | payer BC, MEDICAID, SELFPAY | PROVIDERS: PCP Internal Medicine Medical Oncology; Visit Provider Nurse Practitioner ==

== ENCOUNTER 2023-10-17 10:37 | Outpatient (REF) | payer BC, OTHER, SELFPAY ==
[2023-10-17 10:50] LABS: MANUAL DIFF FLAG NO
[2023-10-17 11:52] LABS: Basophils Percent Auto 0.5 % (0-2); Eosinophils Absolute Auto 0.1 X10*3/uL (0.0-0.4); Eosinophils Percent Auto 0.9 % (0-4); Hematocrit 51.3 % (42.0-52.0); Hemoglobin 17.4 g/dl (14.0-18.0); Imm Gran Abs Auto 0.01 X10*3/uL (0.00-0.03); Imm Gran Pct Auto 0.2 % (0.0-0.4); Lymphocytes Absolute Auto 2.2 X10*3/uL (1.2-4.9); Lymphocytes Percent Auto 38.5 % (20-40); Mean Corpuscular HGB Conc 33.9 g/dl (31.0-36.0); Mean Corpuscular Hemoglobin 28.4 pg (27.0-33.0); Mean Corpuscular Volume 83.8 fL (80.0-98.0); Mean Platelet Volume 11.1 fL (9.4-12.4); Monocytes Absolute Auto 0.4 X10*3/uL (0.1-1.2); Monocytes Percent Auto 7.5 % (2-11); Neutrophils Absolute Auto 2.9 x10*3/uL (2.0-8.3); Neutrophils Percent Auto 52.4 % (45-73); Platelet Count 217 X10*3/uL (160-400); Red Blood Count 6.12 X10*6/uL (4.60-5.80); Red Cell Distribution Width 13.1 % (11.0-16.0); White Blood Count 5.6 X10*3/uL (4.8-10.8)
[2023-10-17 11:54] LABS: Estimated Average Glucose 123 mg/dL; Hemoglobin A1c % 5.9 % (<6.0)
[2023-10-17 12:26] LABS: Creatinine Urine 148.57 mg/dL; Microalbum/Creatinine Ratio Ur 4.7 ug/mg cr (<30)
[2023-10-17 12:40] LABS: Alanine Aminotransferase 30 U/L (0-40); Albumin Level 4.3 g/dL (3.5-5.0); Alkaline Phosphatase 73 U/L (39-117); Anion Gap 11 (12-20); Aspartate Amino Transferase 19 U/L (5-37); Bilirubin Total 0.6 mg/dL (0.0-1.0); Blood Urea Nitrogen 16 mg/dL (9-16); Calcium 9.3 mg/dL (8.4-10.2); Carbon Dioxide 25 mmol/L (22-29); Chloride 107 mmol/L (96-108); Cholesterol 150 mg/dL (<200); Estimated Glomerular Filt Rate > 60; Glucose Fasting 113 mg/dL (60-99); HDL Cholesterol 32 mg/dL (>40); LDL Cholesterol Calculated 81 mg/dL (<100); Potassium 3.8 mmol/L (3.3-5.1); Sodium 139 mmol/L (135-145); Total Protein 6.7 g/dL (6.5-8.0); Triglycerides 186 mg/dL (<150)
== END 2023-10-17 10:38 | disposition home or self-care (01) ==
LOC: HO.LAB 10:37
PROVIDERS: PCP Internal Medicine Medical Oncology; Visit Provider Internal Medicine Medical Oncology
DX: I10 Essential (primary) hypertension (principal); E66.9 Obesity, unspecified; E11.9 Type 2 diabetes mellitus without complications
CPT/HCPCS: 36415; 80053; 80061; 82043; 82570; 83036; 85025

== ENCOUNTER 2024-01-17 10:00 | Outpatient (REF) | payer BC, OTHER, SELFPAY ==
[2024-01-17 10:28] LABS: MANUAL DIFF FLAG NO
[2024-01-17 11:00] LABS: Basophils Percent Auto 0.3 % (0-2); Eosinophils Absolute Auto 0.1 X10*3/uL (0.0-0.4); Eosinophils Percent Auto 0.9 % (0-4); Hemoglobin 16.1 g/dl (14.0-18.0); Imm Gran Abs Auto 0.02 X10*3/uL (0.00-0.03); Imm Gran Pct Auto 0.3 % (0.0-0.4); Lymphocytes Absolute Auto 2.3 X10*3/uL (1.2-4.9); Lymphocytes Percent Auto 39.3 % (20-40); Mean Corpuscular Volume 82.7 fL (80.0-98.0); Mean Platelet Volume 10.2 fL (9.4-12.4); Monocytes Absolute Auto 0.4 X10*3/uL (0.1-1.2); Monocytes Percent Auto 6.8 % (2-11); Neutrophils Absolute Auto 3.1 x10*3/uL (2.0-8.3); Neutrophils Percent Auto 52.4 % (45-73); Platelet Count 259 X10*3/uL (160-400); Red Blood Count 5.56 X10*6/uL (4.60-5.80); White Blood Count 5.9 X10*3/uL (4.8-10.8)
[2024-01-17 11:08] LABS: Estimated Average Glucose 128 mg/dL; Hemoglobin A1c % 6.1 % (<6.0)
[2024-01-17 11:43] LABS: Alanine Aminotransferase 55 U/L (0-40); Albumin Level 4.2 g/dL (3.5-5.0); Alkaline Phosphatase 77 U/L (39-117); Anion Gap 11 (12-20); Aspartate Amino Transferase 32 U/L (5-37); Bilirubin Total 0.4 mg/dL (0.0-1.0); Blood Urea Nitrogen 15 mg/dL (9-16); Carbon Dioxide 25 mmol/L (22-29); Chloride 107 mmol/L (96-108); Cholesterol 123 mg/dL (<200); Estimated Glomerular Filt Rate > 60; Glucose Fasting 106 mg/dL (60-99); HDL Cholesterol 25 mg/dL (>40); LDL Cholesterol Calculated 69 mg/dL (<100); Potassium 3.9 mmol/L (3.3-5.1); Sodium 139 mmol/L (135-145); Total Protein 6.8 g/dL (6.5-8.0); Triglycerides 148 mg/dL (<150)
== END 2024-01-17 10:01 | disposition home or self-care (01) ==
LOC: HO.LAB 10:00
PROVIDERS: PCP Internal Medicine Medical Oncology; Visit Provider Internal Medicine Medical Oncology
DX: I10 Essential (primary) hypertension (principal); E66.9 Obesity, unspecified; E11.9 Type 2 diabetes mellitus without complications
CPT/HCPCS: 36415; 80053; 80061; 83036; 85025

== ENCOUNTER 2024-03-14 11:06 | Outpatient (REF) | payer BC, SELFPAY ==
[2024-03-14 11:24] LABS: MANUAL DIFF FLAG NO
[2024-03-14 11:49] LABS: Basophils Percent Auto 0.5 % (0-2); Eosinophils Percent Auto 0.9 % (0-4); Hematocrit 48.4 % (42.0-52.0); Hemoglobin 16.9 g/dl (14.0-18.0); Imm Gran Abs Auto 0.01 X10*3/uL (0.00-0.03); Imm Gran Pct Auto 0.2 % (0.0-0.4); Lymphocytes Absolute Auto 1.6 X10*3/uL (1.2-4.9); Lymphocytes Percent Auto 35.8 % (20-40); Mean Corpuscular HGB Conc 34.9 g/dl (31.0-36.0); Mean Corpuscular Hemoglobin 28.9 pg (27.0-33.0); Mean Corpuscular Volume 82.7 fL (80.0-98.0); Mean Platelet Volume 10.4 fL (9.4-12.4); Monocytes Absolute Auto 0.4 X10*3/uL (0.1-1.2); Monocytes Percent Auto 8.3 % (2-11); Neutrophils Absolute Auto 2.4 x10*3/uL (2.0-8.3); Neutrophils Percent Auto 54.3 % (45-73); Platelet Count 221 X10*3/uL (160-400); Red Blood Count 5.85 X10*6/uL (4.60-5.80); Red Cell Distribution Width 13.2 % (11.0-16.0); White Blood Count 4.4 X10*3/uL (4.8-10.8)
[2024-03-14 11:57] LABS: Estimated Average Glucose 131 mg/dL; Hemoglobin A1c % 6.2 % (<6.0)
[2024-03-14 12:13] LABS: Creatinine Urine 114.76 mg/dL; Microalbum/Creatinine Ratio Ur 8.7 ug/mg cr (<30)
[2024-03-14 12:19] LABS: Alanine Aminotransferase 36 U/L (0-40); Albumin Level 4.4 g/dL (3.5-5.0); Alkaline Phosphatase 81 U/L (39-117); Anion Gap 11 (12-20); Aspartate Amino Transferase 19 U/L (5-37); Bilirubin Total 0.8 mg/dL (0.0-1.0); Blood Urea Nitrogen 13 mg/dL (9-16); Calcium 9.2 mg/dL (8.4-10.2); Carbon Dioxide 24 mmol/L (22-29); Chloride 112 mmol/L (96-108); Cholesterol 162 mg/dL (<200); Estimated Glomerular Filt Rate > 60; Glucose Fasting 117 mg/dL (60-99); HDL Cholesterol 31 mg/dL (>40); LDL Cholesterol Calculated 107 mg/dL (<100); Potassium 3.7 mmol/L (3.3-5.1); Sodium 143 mmol/L (135-145); Total Protein 6.9 g/dL (6.5-8.0); Triglycerides 122 mg/dL (<150)
== END 2024-03-14 11:07 | disposition home or self-care (01) ==
LOC: HO.LAB 11:06
PROVIDERS: PCP Internal Medicine Medical Oncology; Visit Provider Internal Medicine Medical Oncology
DX: E66.9 Obesity, unspecified (principal); E11.9 Type 2 diabetes mellitus without complications
CPT/HCPCS: 36415; 80053; 80061; 82043; 82570; 83036; 85025

== ENCOUNTER 2024-06-10 12:39 | Outpatient (AMB) | payer BC, SELFPAY ==
[2024-06-10 12:43] VITALS: BP 117/77; PULSE 81; BMI 32.5
--- NOTE | 2024-06-10 12:43 | MHC.OFFVIS ---
Vital Signs 06/10/24 12:43 Height 5 ft 7 in Weight 207 lb 3.752 oz BMI 32.5 BP 117/77 Blood Pressure Location Rt brachial Position Sitting Pulse 81 Intake Visit Reasons: R/S February 04; 6 mos FUV Intake Note: Terry presents in office today in 6 months follow up of gastroparesis. CC: Patient reports occasional constipation or diarrhea because is taking Trulicity and one episode of acid reflux. Denies other GI symptoms today. 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 The other was hyperplastic. The procedure was well tolerated. The results were explained and the patient is agreeable to the follow-up interval as stated. The bowel pattern has returned to normal. Education was provided to tell any 1st degree relatives about their findings to be sure that they are screened by age 45. Educated that they will be put on a recall list when it is time for their repeat scope but should they move out of state or away from the hospital they will need to remember along with their primary to repeat the procedure in a timely fashion to avoid any adverse complications. There is absolutely no family history of Crohn's disease or ulcerative colitis of the patient has no ongoing or recurrent diarrhea except for when he was titrating his Trulicity. He is only using the reglan 3 times a day and is well controlled with this. I had increased it to 5 times a day to give him extra doses in case he was started on Mounjaro which likely would have slow down his stomach quite a lot more than the Trulicity. However his numbers have been good and he has actually been discharged from endocrinology back to his primary care and he will continue on Trulicity. He has had no HB since this and his omeprazole 40mg bid. ROV 6 mos. Medications: Changed From metoclopramide HCl (Reglan) 5 mg PO .5 times a day 150 tabs 6RF E11.43 - Type 2 diabetes mellitus with diabetic autonomic (poly)neuropathy, K31.84 - Gastroparesis To metoclopramide HCl (Reglan) 5 mg PO .tidac 150 tabs 6RF E11.43 - Type 2 diabetes mellitus with diabetic autonomic (poly)neuropathy, K31.84 - Gastroparesis Refilled omeprazole Take 30 mins before meals 40 mg PO BID 90 days 180 caps 2RF K21.9 - Gastro-esophageal reflux disease without esophagitis, K22.10 - Ulcer of esophagus without bleeding TODAYS VISIT He never received the Mounjaro as they could not get it in stock, so he is good on Trulicity and reglan only tid. His GERD is also well controlled on omperazole 40mg bid. ROV 6 mos. PFSH Medical History (Updated 06/10/24 @ 13:15 by DYLAN Bateman) Pre-op examination Uncontrolled type 2 diabetes mellitus with hyperglycemia Hypertension GERD (gastroesophageal reflux disease) Elevated cholesterol Diabetes Surgical History H/O colonoscopy History of esophagogastroduodenoscopy (EGD) History of bladder endoscopy Hx of cholecystectomy History of ankle surgery Hx of knee surgery Family History Mother High blood pressure HX: breast cancer Father Diabetes Social History Alcohol intake: current Alcohol intake frequency: does not drink Patient Tobacco Use Status: Current everyday Tobacco user Tobacco use type: Cigarette Cigarette Packs Per Day: 0.5 Cigarettes Per Day: 10 Years Smoked: 28 Review of Systems Const Denies fatigue, Denies fever(s), Denies night sweats, Denies poor appetite and Denies weight loss ENT Reports Normal hearing present, Denies dental pain, Denies dysphagia, Denies hearing loss, Denies mouth pain, Denies odynophagia, Denies throat swelling, Denies tongue swelling and Reports other (Dentition adequate) Card Reports no additional complaints Resp Reports no additional complaints GI Details: Denies abdominal pain, Denies melena, Denies bloating, Denies hematochezia, Denies constipation, Denies GI cramping, Denies dysphagia, Denies excessive flatus, Reports early satiety, Reports heartburn, Denies diarrhea, Denies nausea, Denies odynophagia, Denies vomiting and Denies hematemesis Skin/Breast Denies pruritus, Denies lesions, Denies rash and Denies jaundice Neuro Reports Normal hearing present and Denies Abnormal speech present Endo Denies fatigue Aller/Immun Denies throat swelling and Denies tongue swelling Physical Exam Vital Signs: Last Vital Signs Pulse 81 06/10/24 12:43 BP 117/77 06/10/24 12:43 BMI result Body Mass Index 32.5 Const General: cooperative, no acute distress, well developed and well groomed Nutritional Appearance: well nourished and obese Orientation/consciousness: oriented to person, oriented to place and oriented to time Limitations: language barrier HEENT Head: Yes normocephalic and Yes atraumatic Eyes General: appearance normal, both eyes and all related structures Pupils: Equal, round and reactive pupils present Neck Neck: Yes normal visual inspection and Yes no lymphadenopathy Thyroid: Thyroid normal Resp Effort & Inspection: normal respiratory effort and able to speak in complete sentences Auscultation: clear to auscultation bilaterally Cardio Rate: regular rate Rhythm: regular rhythm Heart sounds: Normal, physiologic split S2 sound present Peripheral pulses: radial pulses present and posterior tibial pulses present GI Inspection: No distended, No Abdominal panniculus present and Yes obesity Palpation (GI): Soft to palpation, nontender, no guarding, not rigid and No hepatosplenomegaly present Percussion: Yes normal to percussion Auscultation: normal bowel sounds Rectal Exam - Male: Yes deferred Skin General skin exam: no rashes or lesions noted, turgor normal, skin not dry, no jaundice, No spider nevi and no striae Rashes: no rashes Nails: normal Neuro General: oriented to person, oriented to place and oriented to time Cranial nerves: Yes Equal, round and reactive pupils present and Yes Normal hearing present Speech: No Abnormal speech present Extrem General: Yes normal to inspection, No clubbing, No cyanosis and No edema Psych Appearance: grossly normal and well kempt Mental Status: mental status grossly normal Speech and movement: Normal speech and movement present Affect: normal affect Attitude: cooperative Thought process: Normal thought process present and not confabulating Thought content: Normal thought content present Insight: Limited insight present (Psych) Judgement: Limited judgement present (Psych) Assessment & Plan Assessment & Plan (1) Diabetic gastroparesis: Code(s): E11.43 - Type 2 diabetes mellitus with diabetic autonomic (poly)neuropathy; K31.84 - Gastroparesis Category: Medical (2) Erosive gastritis: Code(s): K29.60 - Other gastritis without bleeding Category: Medical (3) 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 His GERD is also well controlled on omperazole 40mg bid. ROV 6 mos. 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
== END 2024-06-10 13:22 | disposition home or self-care (01) ==
PROVIDERS: PCP Internal Medicine Medical Oncology; Visit Provider Nurse Practitioner
DX: E11.43 Type 2 diabetes mellitus with diabetic autonomic (poly)neuropathy (principal); K31.84 Gastroparesis; K29.60 Other gastritis without bleeding; K22.70 Barrett's esophagus without dysplasia; K22.10 Ulcer of esophagus without bleeding; K21.9 Gastro-esophageal reflux disease without esophagitis
CPT/HCPCS: 99213

== ENCOUNTER → 2024-06-10 12:39 | Outpatient (BNVA) | payer BC, SELFPAY | PROVIDERS: PCP Internal Medicine Medical Oncology; Visit Provider Nurse Practitioner ==

== ENCOUNTER 2024-06-17 09:12 | Outpatient (REF) | payer BC, SELFPAY ==
[2024-06-17 09:51] LABS: MANUAL DIFF FLAG NO
[2024-06-17 10:15] LABS: Basophils Percent Auto 0.3 % (0-2); Eosinophils Absolute Auto 0.1 X10*3/uL (0.0-0.4); Hematocrit 49.4 % (42.0-52.0); Hemoglobin 16.8 g/dl (14.0-18.0); Imm Gran Abs Auto 0.01 X10*3/uL (0.00-0.03); Imm Gran Pct Auto 0.2 % (0.0-0.4); Lymphocytes Percent Auto 34.2 % (20-40); Mean Corpuscular Hemoglobin 28.9 pg (27.0-33.0); Mean Platelet Volume 10.7 fL (9.4-12.4); Monocytes Absolute Auto 0.5 X10*3/uL (0.1-1.2); Monocytes Percent Auto 8.4 % (2-11); Neutrophils Absolute Auto 3.3 x10*3/uL (2.0-8.3); Neutrophils Percent Auto 55.9 % (45-73); Platelet Count 207 X10*3/uL (160-400); Red Blood Count 5.81 X10*6/uL (4.60-5.80)
[2024-06-17 10:26] LABS: Estimated Average Glucose 137 mg/dL; Hemoglobin A1C 192.7662 umol/L; Hemoglobin A1c % 6.4 % (<6.0); Total Hemoglobin (HGBA1C) 4175.9088 umol/L
[2024-06-17 11:39] LABS: Alanine Aminotransferase 34 U/L (0-40); Albumin Level 4.3 g/dL (3.5-5.0); Alkaline Phosphatase 81 U/L (39-117); Anion Gap 9 (12-20); Aspartate Amino Transferase 21 U/L (5-37); Bilirubin Total 0.5 mg/dL (0.0-1.0); Blood Urea Nitrogen 18 mg/dL (9-16); Calcium 9.3 mg/dL (8.4-10.2); Carbon Dioxide 28 mmol/L (22-29); Chloride 107 mmol/L (96-108); Cholesterol 145 mg/dL (<200); Estimated Glomerular Filt Rate > 60; Glucose Fasting 126 mg/dL (60-99); HDL Cholesterol 29 mg/dL (>40); LDL Cholesterol Calculated 75 mg/dL (<100); Potassium 3.9 mmol/L (3.3-5.1); Sodium 140 mmol/L (135-145); Total Protein 6.8 g/dL (6.5-8.0); Triglycerides 209 mg/dL (<150)
== END 2024-06-17 09:13 | disposition home or self-care (01) ==
LOC: HO.LAB 09:12
PROVIDERS: PCP Internal Medicine Medical Oncology; Visit Provider Internal Medicine Medical Oncology
DX: Z00.00 Encounter for general adult medical examination without abnormal findings (principal); E11.9 Type 2 diabetes mellitus without complications
CPT/HCPCS: 36415; 80053; 80061; 83036; 85025

== ENCOUNTER 2024-10-21 07:36 | Outpatient (REF) | payer BC, SELFPAY ==
[2024-10-21 07:56] LABS: MANUAL DIFF FLAG NO
[2024-10-21 08:12] LABS: Basophils Percent Auto 0.6 % (0-2); Eosinophils Absolute Auto 0.1 X10*3/uL (0.0-0.4); Eosinophils Percent Auto 0.8 % (0-4); Hematocrit 49.3 % (42.0-52.0); Hemoglobin 16.5 g/dl (14.0-18.0); Imm Gran Abs Auto 0.01 X10*3/uL (0.00-0.03); Imm Gran Pct Auto 0.2 % (0.0-0.4); Lymphocytes Absolute Auto 2.3 X10*3/uL (1.2-4.9); Mean Corpuscular HGB Conc 33.5 g/dl (31.0-36.0); Mean Corpuscular Hemoglobin 28.4 pg (27.0-33.0); Mean Corpuscular Volume 84.7 fL (80.0-98.0); Mean Platelet Volume 10.5 fL (9.4-12.4); Monocytes Absolute Auto 0.5 X10*3/uL (0.1-1.2); Monocytes Percent Auto 7.6 % (2-11); Neutrophils Absolute Auto 3.4 x10*3/uL (2.0-8.3); Neutrophils Percent Auto 53.8 % (45-73); Platelet Count 214 X10*3/uL (160-400); Red Blood Count 5.82 X10*6/uL (4.60-5.80); Red Cell Distribution Width 13.1 % (11.0-16.0); White Blood Count 6.3 X10*3/uL (4.8-10.8)
[2024-10-21 08:32] LABS: Estimated Average Glucose 140 mg/dL; Hemoglobin A1c % 6.5 % (<6.0)
[2024-10-21 08:49] LABS: Creatinine Urine 128.05 mg/dL; Microalbum/Creatinine Ratio Ur 4.6 ug/mg cr (<30)
[2024-10-21 08:56] LABS: Alanine Aminotransferase 38 U/L (0-40); Albumin Level 4.1 g/dL (3.5-5.0); Alkaline Phosphatase 75 U/L (39-117); Anion Gap 10 (12-20); Aspartate Amino Transferase 20 U/L (5-37); Bilirubin Total 0.5 mg/dL (0.0-1.0); Blood Urea Nitrogen 16 mg/dL (9-16); Calcium 9.1 mg/dL (8.4-10.2); Carbon Dioxide 24 mmol/L (22-29); Chloride 111 mmol/L (96-108); Cholesterol 139 mg/dL (<200); Estimated Glomerular Filt Rate > 60; Glucose Fasting 111 mg/dL (60-99); HDL Cholesterol 31 mg/dL (>40); LDL Cholesterol Calculated 62 mg/dL (<100); Potassium 3.7 mmol/L (3.3-5.1); Sodium 141 mmol/L (135-145); Total Protein 6.6 g/dL (6.5-8.0); Triglycerides 234 mg/dL (<150)
== END 2024-10-21 07:37 | disposition home or self-care (01) ==
LOC: HO.LAB 07:36
PROVIDERS: PCP Internal Medicine Medical Oncology; Visit Provider Internal Medicine Medical Oncology
DX: E66.9 Obesity, unspecified (principal); E11.9 Type 2 diabetes mellitus without complications
CPT/HCPCS: 36415; 80053; 80061; 82043; 82570; 83036; 85025

== ENCOUNTER 2025-01-29 11:51 | Outpatient (AMB) | payer BC, SELFPAY ==
--- OUTSIDE RECORDS SUMMARY | 2017-07-18 07:09 | XMS_ITS | Continuity of Care Document ---
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 Name Role Phone [facility] Unavailable Unavailable Problems Combined list of problems [...] By: VINCENT ANGELES Comment: Attributed to Service [place] Care by local physician Active Condition Jul 18, 2016 Entered By: VINCENT ANGELES Comment: Private PCP: none, but goes to [facility] [place] History of cholecystectomy Active Condition Jul 18, 2016 Entered By: VINCENT ANGELES Comment: Cholecystectomy 2014 ([place]); Reason: Lithiasis [place] Hyperglycemia Active Condition [facility] Knee pain (SNOMED CT [id number]) Active Condition Jul 18, 2016 Entered By: VINCENT ANGELES Comment: Arthroscopy, R Knee 1997 in ; Partial Meniscectomy [place] Multiple environmental allergies Active Condition [place] Pure hypercholesterolemia [facility] Medications Combined list of outpatient medications from [...] Site Reaction Lot Number CVX Code Drug Motor Vehicles Inspector Status Comments Source INFLUENZA, SEASONAL, INJECTABLE 2016 141 complet ed Site: Left Deltoid [place] DTAP 2015 20 complet ed Site: Left Deltoid [place] PNEUMOCOCCAL POLYSACCHARID E PPV23 2015 33 complet ed [place] FLU,3 YRS (HISTORICAL) 2015 88 complet ed [facility] [place] [facility] Social History Combined list of available smoking, tobacco, and other social history from Department of Defense and Veterans Affairs facilities. Social History Type Response Date Comment Sour e Tobacco smoking status NHIS CURRENT SMOKER 07/18/2017 cutting down [place] History of tobacco use CURRENT SMOKER 05/18/2017 try to stop; quit on own [place] History of tobacco use CURRENT SMOKER 07/18/2016 [place]
--- OUTSIDE RECORDS SUMMARY | 2024-10-29 06:45 | XMS_ITS ---
Author Organization Graeme Ayala III, MD Address [address] [facility] [place] [place] [address] Care Team Providers Care Cooker Helper Name Role Phone Graeme Aayla Primary Care Provider Allergies Allergen (clinical drug ingredient) Drug/Non Drug Allergy documented on EMR Reaction Allergy Type Onset Date Status No Known Drug Allergy Unknown Drug Allergy Active REASON FOR VISIT Diabetes, Retention, Tobacco dependence, Obesity, Benign prostatic hypertrophy Medications Medication SIG (Take, Route, Frequency, Duration) Notes Start Date End Date Status Lisinopril 20 MG TAKE 1 TABLET BY DAIVD TH EVERY DAY Orally Once a day Active Xigduo XR 10-1000 MG TAKE 1 TABLET BY MO UT EVERY DAY Active Trulicity 3 MG/0.5ML 1 PEN Subcutaneous Once a week Active Ciclopirox Olamine 0.77 % External Active Metoclopramide HCl 5 MG TAKE 1 TABLET BY MOUTH 4 TIMES A DAY BEFORE MEAL/BED Oral Active Atorvastatin Calcium 10 MG TAKE 1 TABLET BY MOUTH EVERY DAY Active Tadalafil 5 MG 1 tablet as needed O rally Once a day Active Omeprazole 40 MG TAKE 1 CAPSULE BY MO UTH TWICE A DAY Oral Active Social History Tobacco Use: Social History Observation Description Date Details (start date - stop date) Current Smoker NA - NA Sex Assigned At : Social History Observation Description Sex Assigned At Male Tobacco Use/Smoking Question Answer Notes Patient is a current smoker How often do you smoke cigarettes? every day How many cigarettes a day do you smoke? 6-10 How soon after you wake up d o you smoke your first cigarette? 6-30 minutes Are you interested in quitting? Not ready to gary t Additional Findings: Tobacco User Light cigarett e smoker ((1-9 cigs/day) Vital Signs Temperature 97.2 degrees Fahrenheit 10/30/19 25 Blood pressure systolic 118 mm Hg 10/30/19 25 Blood pressure diastolic 79 mm Hg 025 Heart Rate 80 /min 10/29/2024 Height 67 in 10/29/2024 Weight 201 lbs 10/29/2024 BMI 31.48 kg/m2 10/29/2024 Encounters Encounter Location Date Provider Diagnosis Graeme Ayala III, MD [address] [place] [address] [place] [address] 10/29/2024 Graeme Ayala Obesity, mild E66.9 ; Type 2 diabetes mellitus without complication, without long-term current use of insulin E11.9 ; Essential hypertension I10 ; Tobacco dependence F17.200 ; History of strabismus Z86.69 and BPH (benign prostatic hyperplasia) N40.0 Assessments Encounter Date Diagnosis (ICD Code) Assessment Notes Treatment Notes Treatment Clinical Notes 10/29/2024 Obesity, mild (ICD-10 - E66.9) His body mass index is 31. He has lost 2 pounds. We made a plan to lose weight at a rate of 1/2 pound per week. We discussed the elements of a weight loss diabetic low animal fat diet. 10/29/2024 Type 2 diabetes mellitus without complication, without long-term current use of insulin (ICD-10 - E11.9) He was continued on current medication and encouraged to lose weight and be active. His hemoglobin A1c is 6.5. No change in his medication was necessary. 10/29/2024 Essential hypertension (ICD-10 - I10) His blood pressure is 118/79. No change in medication was made. I encouraged aggressive weight loss and sodium restriction. 10/29/2024 Tobacco dependence (ICD-10 - F17.200) I recommended smoking cessation and made him aware a smoking cessation program set all of the local hospitals and the [employer]. 10/29/2024 History of strabismus (ICD-10 - Z86.69) He reports no change in his vision. He has an contact lens blocker. 10/29/2024 BPH (benign prostatic hyperplasia) (ICD-10 - N40.0) He arises from sleep once a night on the average. We discussed lifestyle modification as a way of reducing nocturia. Plan Of Treatment Medication Medication Name Sig Start Date Stop Date Notes Lisinopril 20 MG TAKE 1 TABLET BY DAVID EVERY DAY Orally Once a day Xigduo XR 10-1000 MG TAKE 1 TABLET BY [facility] EVERY DAY Trulicity 3 MG/0.5ML 1 PEN Subcutaneous Once a week Ciclopirox Olamine 0.77 % External Metoclopramide HCl 5 MG TAKE 1 TABLET BY MOUTH 4 TIMES A DAY BEFORE MEAL/BED Oral Atorvastatin Calcium 10 MG TAKE 1 TABLET BY MOUTH EVERY DAY Tadalafil 5 MG 1 tablet as needed O rally Once a day Omeprazole 40 MG TAKE 1 CAPSULE BY [facility] TWICE A DAY Oral Pending Test Test Name Order Date PROFILE, FASTING (COMPREHENSIVE METABOLI C) 10/29/2024 CBC w DIFF 10/29/2024 Lipid Panel 10/29/2024 Microalbumin, Random 10/29/2024 Hemoglobin A1c 10/29/2024 Next Appt Details Follow Up: As Scheduled, Laurel son: Annual Exam Provider Name:Graeme Ayala, 03/24/2025 09:30:00 AM, [address] [place] [address], [id number], Progress Notes * PACO DIONOB:1975 (49 yo M)Acc No.[id number]:10/29/2024 Progress Notes Patient: JURGEN CORDOBA Provider: Venita Ayala MD :1975 A ge:49 Y S ex:Male Date:10/29/2024 Address:[address] [place], [place] [id number] Subjective: * Chief Complaints: * D iabetesRetentionTobacco dependenceObesityBenign prostatic hypertrophy * HPI: v : He returns for medical management. He has lost 2 pounds and his body mass index is 31. His hemoglobin A1c is 6.5. He feels healthy and well. His blood pressure was controlled. He has no new complaints. He has been compliant with all of his treatments. He arises from sleep once or twice a night to urinate. He has no pain. He denies any skin lesion in his chest pain or dyspnea or palpitations. His medications were continued without change. I advised him to follow his weight loss diabetic diet.He continues to smoke a package of cigarettes per day. We discussed smoking cessation. Plans at length. Kobi gold has been made aware of all of the smoking cessation programs in the neighborhood. * ROS: G eneral/Constitutional: pain o nly normal aches and pains. C hills d enies.?Fatigue a dmits. F ever d enies. E NT: Decreased hearing d enies. R espiratory: Cough n on-productive. C ardiovascular: Chest pain with exertion d enies. D yspnea on exertion?denies. S hortness of breath d enies. G astrointestinal: Constipation o ccasional. D ecreased appetite d enies. D iarrhea d enies. H eartburn o ccasional. N ausea d enies. R ectal bleeding d enies. V omiting d enies. H ematology: bruising d enies. p etechiae d enies. S wollen glands n one have been noted. G enitourinary: Frequent urination o nce a night. M usculoskeletal: Muscle aches d enies. P ainful joints d enies. S ciatica d enies. W eakness d enies. S kin: Itching d enies. R ministerio d enies. S kin lesion(s)?denies. N eurologic: Difficulty speaking d enies. D izziness d enies.?Headache d enies. L ow back pain d enies. P sychiatric: Depressed mood d enies. * Medical History: * Surgical History: m eniscectomy, right knee 1995repair right ankle fracture 1997laparoscopic cholecystectomy for gallstones 2014resection benign inclusion cyst, right neck, Dr. Mejias 2018Endoscopy by ircumcition 10/2022 * Hospitalization/Major Diagno stic Procedure: D enies Past Hospitalization * Family History: F ather: alive, Diabetes mellitus. M other: alive, Hypertension. 2 brother(s) , 1 sister(s) - healthy. . His father is living with diabetes in his mother is living with hypertension. His 2 brothers are healthy and well. His sister is alive and well. He has 2 children, one of whom has autism. He is not aware of any inherited family cancer syndromes. * Social History: T obacco Use: T obacco Use/Smoking P atient is a c urrent smoker H ow often do you smoke cigarettes? e very day H ow many cigarettes a day do you smoke? 6 -10 H ow soon after you wake up do you smoke your first cigarette? 6 -30 minutes A re you interested in quitting? N ot ready to quit A dditional Findings: Tobacco User L ight cigarette smoker ((1-9 cigs/day) H e smokes half a package of cigarettes per day. He has been for several years and has 2 children. One child is autistic. 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 * Medications: T akingLisinopril 20 MG Tablet TAKE 1 TABLET BY MOUTH EVERY DAY Orally Once a day Xigduo XR 10-1000 MG Tablet Extended Release 24 Hour TAKE 1 TABLET BY MOUTH EVERY DAY Trulicity 3 MG/0.5ML Solution Pen-injector 1 PEN Subcutaneous Once a week Atorvastatin Calcium 10 MG Tablet TAKE 1 TABLET BY MOUTH EVERY DAY Tadalafil 5 MG Tablet 1 tablet as needed Orally Once a day Omeprazole 40 MG Capsule Delayed Release TAKE 1 CAPSULE BY MOUTH TWICE A DAY Oral Ciclopirox Olamine 0.77 % Cream External Metoclopramide HCl 5 MG Tablet TAKE 1 TABLET BY MOUTH 4 TIMES A DAY BEFORE MEAL/BED Oral Medication List reviewed and reconciled with the patientTaking Lisinopril 20 MG Tablet TAKE 1 TABLET BY MOUTH EVERY DAY Orally Once a day Taking Xigduo XR 10- 1000 MG Tablet Extended Release 24 Hour TAKE 1 TABLET BY MOUTH EVERY DAY Taking Trulicity 3 MG/0.5ML Solution Pen-injector 1 PEN Subcutaneous Once a week Taking Atorvastatin Calcium 10 MG Tablet TAKE 1 TABLET BY MOUTH EVERY DAY Taking Tadalafil 5 MG Tablet 1 tablet as needed Orally Once a day Taking Omeprazole 40 MG Capsule Delayed Release TAKE 1 CAPSULE BY MOUTH TWICE A DAY Oral Taking Ciclopirox Olamine 0.77 % Cream External Taking Metoclopramide HCl 5 MG Tablet TAKE 1 TABLET BY MOUTH 4 TIMES A DAY BEFORE MEAL/BED Oral Medication List reviewed and reconciled with the patient * Allergies: N o Known Drug Allergyno[Allergies Verified] Objective: * Vitals: H t: 67, Wt: 201, BMI:31.48, BP: 118/79, HR: 80, Temp: 97.2, Wt-k.17. * P ast Orders: Lab:Complete Blood Count Aut o Diff * Collection Date 10/21/2024 06/17/2024 03/14/2024 Collection Time 07:54 AM 09:50 AM 11:24 AM Order Date 10/21/2024 06/17/2024 03/14/2024 White Blood Count 6.3 (Ref Range: 4.8-10.8 X10*3/uL) 6.0 (Ref Range: 4.8-10.8 X10*3/uL) 4.4 L (Ref Range: 4.8-10.8 X10*3/uL) Red Blood Count 5.82 H (Ref Range: 4.60-5.80 X10*6/uL) 5.81 H (Ref Range: 4.60-5.80 X10*6/uL) 5.85 H (Ref Range: 4.60-5.80 X10*6/uL) Hemoglobin 16.5 (Ref Range: 14.0-18.0 g/dl) 16.8 (Ref Range: 14.0-18.0 g/dl) 16.9 (Ref Range: 14.0-18.0 g/dl) Hematocrit 49.3 (Ref Range: 42.0-52.0 %) 49.4 (Ref Range: 42.0-52.0 %) 48.4 (Ref Range: 42.0-52.0 %) Mean Corpuscular Volume 84.7 (Ref Range: 80.0-98.0 fL) 85.0 (Ref Range: 80.0-98.0 fL) 82.7 (Ref Range: 80.0-98.0 fL) Mean Corpuscular Hemoglobin 28.4 (Ref Range: 27.0-33.0 pg) 28.9 (Ref Range: 27.0-33.0 pg) 28.9 (Ref Range: 27.0-33.0 pg) Mean Corpuscular HGB Conc 33.5 (Ref Range: 31.0-36.0 g/dl) 34.0 (Ref Range: 31.0-36.0 g/dl) 34.9 (Ref Range: 31.0-36.0 g/dl) Red Cell Distribution Width 13.1 (Ref Range: 11.0-16.0 %) 13.0 (Ref Range: 11.0-16.0 %) 13.2 (Ref Range: 11.0-16.0 %) Platelet Count 214 (Ref Range: 160-400 X10*3/uL) 207 (Ref Range: 160-400 X10*3/uL) 221 (Ref Range: 160-400 X10*3/uL) Mean Platelet Volume 10.5 (Ref Range: 9.4-12.4 fL) 10.7 (Ref Range: 9.4-12.4 fL) 10.4 (Ref Range: 9.4-12.4 fL) Neutrophils Percent Auto 53.8 (Ref Range: 45-73 %) 55.9 (Ref Range: 45-73 %) 54.3 (Ref Range: 45-73 %) Imm Gran Pct Auto 0.2 (Ref Range: 0.0-0.4 %) 0.2 (Ref Range: 0.0-0.4 %) 0.2 (Ref Range: 0.0-0.4 %) Lymphocytes Percent Auto 37.0 (Ref Range: 20-40 %) 34.2 (Ref Range: 20-40 %) 35.8 (Ref Range: 20-40 %) Monocytes Percent Auto 7.6 (Ref Range: 2-11 %) 8.4 (Ref Range: 2-11 %) 8.3 (Ref Range: 2-11 %) Eosinophils Percent Auto 0.8 (Ref Range: 0-4 %) 1.0 (Ref Range: 0-4 %) 0.9 (Ref Range: 0-4 %) Basophils Percent Auto 0.6 (Ref Range: 0-2 %) 0.3 (Ref Range: 0-2 %) 0.5 (Ref Range: 0-2 %) NRBC Pct Auto 0.0 (Ref Range: 0.0-0.2 /100WBC) 0.0 (Ref Range: 0.0-0.2 /100WBC) 0.0 (Ref Range: 0.0-0.2 /100WBC) Neutrophils Absolute Auto 3.4 (Ref Range: 2.0-8.3 x10*3/uL) 3.3 (Ref Range: 2.0-8.3 x10*3/uL) 2.4 (Ref Range: 2.0-8.3 x10*3/uL) Imm Gran Abs Auto 0.01 (Ref Range: 0.00-0.03 X10*3/uL) 0.01 (Ref Range: 0.00-0.03 X10*3/uL) 0.01 (Ref Range: 0.00-0.03 X10*3/uL) Lymphocytes Absolute Auto 2.3 (Ref Range: 1.2-4.9 X10*3/uL) 2.0 (Ref Range: 1.2-4.9 X10*3/uL) 1.6 (Ref Range: 1.2-4.9 X10*3/uL) Monocytes Absolute Auto 0.5 (Ref Range: 0.1-1.2 X10*3/uL) 0.5 (Ref Range: 0.1-1.2 X10*3/uL) 0.4 (Ref Range: 0.1-1.2 X10*3/uL) Eosinophils Absolute Auto 0.1 (Ref Range: 0.0-0.4 X10*3/uL) 0.1 (Ref Range: 0.0-0.4 X10*3/uL) 0.0 (Ref Range: 0.0-0.4 X10*3/uL) Basophils Absolute Auto 0.0 (Ref Range: 0.0-0.2 X10*3/uL) 0.0 (Ref Range: 0.0-0.2 X10*3/uL) 0.0 (Ref Range: 0.0-0.2 X10*3/uL) NRBC Abs Auto 0.000 (Ref Range: 0.0-0.012 X10*3/uL) 0.000 (Ref Range: 0.0-0.012 X10*3/uL) 0.000 (Ref Range: 0.0-0.012 X10*3/uL) * Lab:Darío lewis Fast * Collection Date 10/21/2024 06/17/2024 03/14/2024 Collection Time 07:54 AM 09:50 AM 11:24 AM Order Date 10/21/2024 06/17/2024 03/14/2024 Sodium 141 (Ref Range: 135-145 mmol/L) 140 (Ref Range: 135-145 mmol/L) 143 (Ref Range: 135-145 mmol/L) Bilirubin Total 0.5 (Ref Range: 0.0-1.0 mg/dL) 0.5 (Ref Range: 0.0-1.0 mg/dL) 0.8 (Ref Range: 0.0-1.0 mg/dL) Aspartate Amino Transferase 20 (Ref Range: 5-37 U/L) 21 (Ref Range: 5-37 U/L) 19 (Ref Range: 5-37 U/L) Alanine Aminotransferase 38 (Ref Range: 0-40 U/L) 34 (Ref Range: 0-40 U/L) 36 (Ref Range: 0-40 U/L) Total Protein 6.6 (Ref Range: 6.5-8.0 g/dL) 6.8 (Ref Range: 6.5-8.0 g/dL) 6.9 (Ref Range: 6.5-8.0 g/dL) Albumin Level 4.1 (Ref Range: 3.5-5.0 g/dL) 4.3 (Ref Range: 3.5-5.0 g/dL) 4.4 (Ref Range: 3.5-5.0 g/dL) Alkaline Phosphatase 75 (Ref Range: 39-117 U/L) 81 (Ref Range: 39-117 U/L) 81 (Ref Range: 39-117 U/L) Potassium 3.7 (Ref Range: 3.3-5.1 mmol/L) 3.9 (Ref Range: 3.3-5.1 mmol/L) 3.7 (Ref Range: 3.3-5.1 mmol/L) Chloride 111 H (Ref Range: 96-108 mmol/L) 107 (Ref Range: 96-108 mmol/L) 112 H (Ref Range: 96-108 mmol/L) Carbon Dioxide 24 (Ref Range: 22-29 mmol/L) 28 (Ref Range: 22-29 mmol/L) 24 (Ref Range: 22-29 mmol/L) Anion Gap 10 L (Ref Range: 12-20) 9 L (Ref Range: 12-20) 11 L (Ref Range: 12-20) Blood Urea Nitrogen 16 (Ref Range: 9-16 mg/dL) 18 H (Ref Range: 9-16 mg/dL) 13 (Ref Range: 9-16 mg/dL) Creatinine 0.85 (Ref Range: 0.5-1.4 mg/dL) 0.89 (Ref Range: 0.5-1.4 mg/dL) 0.84 (Ref Range: 0.5-1.4 mg/dL) Estimated Glomerular Filt Rate > 60 > 60 > 60 Glucose Fasting 111 H (Ref Range: 60-99 mg/dL) 126 H (Ref Range: 60-99 mg/dL) 117 H (Ref Range: 60-99 mg/dL) Calcium 9.1 (Ref Range: 8.4-10.2 mg/dL) 9.3 (Ref Range: 8.4-10.2 mg/dL) 9.2 (Ref Range: 8.4-10.2 mg/dL) * Lab:Lipid Panel * Collection Date 10/21/2024 06/17/2024 03/14/2024 Collection Time 07:54 AM 09:50 AM 11:24 AM Order Date 10/21/2024 06/17/2024 03/14/2024 Triglycerides 234 H (Ref Range: <150 mg/dL) 209 H (Ref Range: <150 mg/dL) 122 (Ref Range: <150 mg/dL) Cholesterol 139 (Ref Range: <200 mg/dL) 145 (Ref Range: <200 mg/dL) 162 (Ref Range: <200 mg/dL) LDL Cholesterol Calculated 62 (Ref Range: <100 mg/dL) 75 (Ref Range: <100 mg/dL) 107 H (Ref Range: <100 mg/dL) HDL Cholesterol 31 L (Ref Range: >40 mg/dL) 29 L (Ref Range: >40 mg/dL) 31 L (Ref Range: >40 mg/dL) * Lab:Microalbumin, Random * Collection Date 10/21/2024 03/14/2024 10/17/2023 Collection Time 07:52 AM 11:20 AM 10:47 AM Order Date 10/21/2024 03/14/2024 10/17/2023 Creatinine Urine 128.05 (Ref Range: mg/dL) 114.76 (Ref Range: mg/dL) 148.57 (Ref Range: mg/dL) Microalbumin Urine 6.0 (Ref Range: mg/L) 10.0 (Ref Range: mg/L) 7.0 (Ref Range: mg/L) Microalbum Creatinine Ratio Ur 4.6 (Ref Range: <30 ug/mg cr) 8.7 (Ref Range: <30 ug/mg cr) 4.7 (Ref Range: <30 ug/mg cr) * Lab:Hemoglobin A1c * Collection Date 10/21/2024 06/17/2024 03/14/2024 Collection Time 07:54 AM 09:50 AM 11:24 AM Order Date 10/21/2024 06/17/2024 03/14/2024 Hemoglobin A1c % 6.5 H (Ref Range: <6.0 %) 6.4 H (Ref Range: <6.0 %) 6.2 H (Ref Range: <6.0 %) Estimated Average Glucose 140 (Ref Range: mg/dL) 137 (Ref Range: mg/dL) 131 (Ref Range: mg/dL) * Examination: G eneral Examination: GENERAL APPEARANCE: p leasant, well nourished, well developed, in no acute distress, calm and relaxed, obese, man. HEAD: a traumatic, normocephalic. EYES: e ashley, perrla, anicteric, Strabismus. EARS: n ormal. NOSE: s eptum intact. ORAL CAVITY: n ormal, unremarkable. NECK/THYROID: n o jugular venous distention, no carotid bruit, thyroid normal. LYMPH NODES: n o enlarged lymph nodes,spleen normal. SKIN: n o suspicious lesions, anicteric. HEART: n o clicks, gallops, murmurs, or rubs, regular rhythm, S1, S2 normal, no s3, or vascular bruits. LUNGS: c lear to auscultation . BREASTS: no masses palpable bilaterally. ABDOMEN: b owel sounds normal, no ascites, no organomegaly, no mass, centripital obesity. RECTAL EXAM: n ot examined. MUSCULOSKELETAL: e xtremities unremarkable, no clubbing, cyanosis or edema. PERIPHERAL PULSES: n ormal. NEUROLOGIC: a lert and oriented, cranial nerves 2-12 grossly intact, deep tendon reflexes 2+ symmetrical, motor strength normal upper and lower extremities, sensory exam intact. PSYCH: a lert, oriented. Assessment: * Assessment: 1. T ype 2 diabetes mellitus without complication, without long-term current use of insulin - E11.9 (Primary) N otes :He was continued on current medication and encouraged to lose weight and be active. His hemoglobin A1c is 6.5. No change in his medication was necessary. 2 . O jacqueline mild - E66.9 N otes :His body mass index is 31. He has lost 2 pounds. We made a plan to lose weight at a rate of 1/2 pound per week. We discussed the elements of a weight loss diabetic low animal fat diet. 3 . E ssential hypertension - I10 N otes :His blood pressure is 118/79. No change in medication was made. I encouraged aggressive weight loss and sodium restriction. 4 . T obacco dependence - F17.200 N otes :I recommended smoking cessation and made him aware a smoking cessation program set all of the local hospitals and the [employer]. 5 . H istory of strabismus - Z86.69 N otes :He reports no change in his vision. He has an contact lens blocker. 6 . B PH (benign prostatic hyperplasia) - N40.0 N otes :He arises from sleep once a night on the average. We discussed lifestyle modification as a way of reducing nocturia. Plan: * Treatment: 2. O jacqueline mild L AB: PROFILE, FASTING (COMPREHENSIVE METABOLIC) L AB: CBC w DIFF L AB: Lipid Panel L AB: Microalbumin, Random L AB: Hemoglobin A1c 3. E ssential hypertension L AB: PROFILE, FASTING (COMPREHENSIVE METABOLIC) L AB: CBC w DIFF L AB: Lipid Panel L AB: Microalbumin, Random L AB: Hemoglobin A1c 4. O thers Continue Lisinopril Tablet, 20 MG, TAKE 1 TABLET BY MOUTH EVERY DAY, Orally, Once a day; C ontinue Xigduo XR Tablet Extended Release 24 Hour, 10-1000 MG, TAKE 1 TABLET BY MOUTH EVERY DAY; C ontinue Trulicity Solution Pen-injector, 3 MG/0.5ML, 1 PEN, Subcutaneous, Once a week; C ontinue Atorvastatin Calcium Tablet, 10 MG, TAKE 1 TABLET BY MOUTH EVERY DAY; C ontinue Tadalafil Tablet, 5 MG, 1 tablet as needed, Orally, Once a day; C ontinue Omeprazole Capsule Delayed Release, 40 MG, TAKE 1 CAPSULE BY MOUTH TWICE A DAY, Oral; C ontinue Ciclopirox Olamine Cream, 0.77 %, External; C ontinue Metoclopramide HCl Tablet, 5 MG, TAKE 1 TABLET BY MOUTH 4 TIMES A DAY BEFORE MEAL/BED, Oral. * Procedure Codes: * Preventive Medicine: Counseling: C are goal follow-up plan: Counseling for abnormal BMI given Y es Above Normal BMI Follow-up D ietary management education, guidance, and counseling, Dietary needs education, Exercise promotion: strength training, Exercise promotion: stretching, Feeding regime, Giving encouragement to exercise, Lifestyle education regarding diet, Nutrition / feeding management, Nutrition therapy, Prescribed activity/exercise education, Prescribed diet education, Prescribed dietary intake, Special diet education, Weight monitoring , Intervention, Order not done: Medical or Other reason not done S moking/Tobacco Use Patient counseled on the dangers of tobacco use and urged to quit. 0 10/29/2024 Patient Lifestyle Goals P atient wants to quit Treatment Goals S et a quit date, Cut down by 1 cigarette a week Barriers S tress, Social smoker Self-Management Plan M sri a plan to cut down number of cigarettes over time and set a date to work towards quitting DM Care Plan: P atient Lifestyle Goals P atient wants to be able to manage diabetes without too much effort. T reatment Goals H bA1C < 7.0, Blood Sugars less than < 115. B arriers n o barriers. S elf-Managment Goals W ork on weight loss, with a goal of losing 1 lb per week. * Follow Up: A s Scheduled (Reason: Annual Exam) * Images: * Sign off status: Completed true * Provider: Venita Ayala MD Date: 0 10/29/2024 Generated for Fide ac/Anna/eTransmitting on: 01/29/2025 12:28 PM EDT History and Physical Notes * Examination Category Sub-Category Detail Notes General Examination GENERAL APPEARANCE: pleasant , well nourished, well developed, in no acute distress, calm and relaxed, obese, man HEAD: atraumatic, normocep halic EYES: eomi, perrla, anicte tima, Strabismus EARS: normal NOSE: septum intact NECK/THYROID: no jugular venous di stention, no carotid bruit, thyroid normal HEART: no clicks, gallops, murmurs, or rubs, regular rhythm, S1, S2 normal, no s3, or vascular bruits LUNGS: clear to auscultatio n ABDOMEN: bowel sounds normal, no ascites, no organomegaly, no mass, centripital obesity NEUROLOGIC: alert and oriented, cranial nerves 2-12 grossly intact, deep tendon reflexes 2+ symmetrical, motor strength normal upper and lower extremities, sensory exam intact SKIN: no suspicious lesion s, anicteric PERIPHERAL PULSES: normal BREASTS: no masses palpable b ilaterally MUSCULOSKELETAL: extremities unremark able, no clubbing, cyanosis or edema LYMPH NODES: no enlarged lymph no iftikhar,spleen normal RECTAL EXAM: not examined PSYCH: alert, oriented ORAL CAVITY: normal, unremarkable
--- OUTSIDE RECORDS SUMMARY | 2025-01-28 11:15 | XMS_ITS | Continuity of Care Document ---
Author Organization [facility] ter Address [address] [place] [id number] Care Team Providers Care Baggage Porter Head Name Role Phone Jamie GOMES, Graeme Burch Primary Care Physician Encounter [facility] Date(s): 01/28/25 - 01/28/[address] [address] Discharge Disposition: A-D/C Home Attending Physician: Ervin Armando MD, I Admitting Physician: Ervin Armando MD, I Referring Physician: Ervin Armando MD, I Encounter Type: Disch Daystay Allergies, Adverse Reactions, Alerts No Known Medication Allergies Medications atorvastatin 10 mg oral tablet 1 tablet = 10 mg, By Mouth, Daily, # 30 tablet, 0 Refills, Maintenance, 01/23/25 12:44:00 PM EDT, Partial fill upon patient request if the prescription is for a schedule II opioid drug. Start Date: 01/23/25 Status: Ordered Quantity: 30.0 Unit: tablet Repeat number: 1 fluoride 1.1% topical paste 1 application, Topically, Daily at bedtime, do not swallow, # 51 Gm, 0 Refills, Maintenance, 01/23/25 12:43:00 PM EDT, Paste, Partial fill upon patient request if the prescription is for a schedule IIopioid drug. Start Date: 01/23/25 Status: Ordered Quantity: 51.0 Unit: g Repeat number: 1 lisinopril 20 mg oral tablet 20 mg, 1, tablet, By Mouth, Daily, # 30 tablet, Refills 0, Maintenance, 01/23/25 12:54:00 PM EDT, Partial fill upon patient request if the prescription is for a schedule II opioid drug. Start Date: 01/23/25 Status: Ordered Quantity: 30.0 Unit: tablet Repeat number: 1 metoclopramide 5 mg oral tablet 1 tablet = 5 mg, By Mouth, 3 times a day before meals and bedtime, # 120 tablet, 0 Refills, Maintenance, 01/23/25 12:41:00 PM EDT, Tablet, Partial fill upon patient request if the prescription is for a schedule II opioid drug. Start Date: 01/23/25 Status: Ordered Quantity: 120.0 Unit: tablet Repeat number: 1 omeprazole 40 mg oral enteric coated capsule 1 capsule = 40 mg, By Mouth, 2 times a day, # 120 capsule, 0 Refills, Maintenance, 01/23/25 12:42:00PM EDT, CR Capsule, Partial fill upon patient request if the prescription is for a schedule II opioid drug. Start Date: 01/23/25 Status: Ordered Quantity: 120.0 Unit: capsule Repeat number: 1 tadalafil 10 mg oral tablet TAKE ONE TABLET BY MOUTH DAILY. STOP IF SIDE EFFECTS ARISES Start Date: 01/23/25 Status: Ordered Repeat number: 1 Trulicity Pen 3 mg/0.5 mL subcutaneous solution 0.5 mL = 3 mg, Subcutaneous Injection, Every week, rotate injection sites, # 2 mL, 0 Refills, Maintenance, 01/23/25 12:40:00 PM EDT, Solution, Partial fill upon patient request if the prescription is for a schedule II opioid drug. Start Date: 01/23/25 Status: Ordered Quantity: 2.0 Unit: mL Repeat number: 1 Xigduo XR 10 mg-1000 mg oral tablet, extended release 1 tablet, By Mouth, Daily in AM, with food, # 30 tablet, 0 Refills, Maintenance, 01/23/25 12:40:00 PM EDT, ER Tablet, Partial fill upon patient request if the prescription is for a schedule II opioid drug. Start Date: 01/23/25 Status: Ordered Quantity: 30.0 Unit: tablet Repeat number: 1 Problem List Condition Confirmation Course Effective Dates Status Health St atus Informant Obese class I Confirmed Active History and physical note * Event Display: History and Physical Hospital Authored Date: * Event Display: History and Physical Hospital Authored Date: Note * Gloria Corbett RN: PERFORM Event Display: Discharge/Transfer Note Hospital Authored Date: [id number] Nursing Discharge Note Entered On: 01/28/2025 11:41 EDT Performed On: 01/28/2025 11:15 EDT by Gloria Corbett RN Nursing Discharge Note 2 Discharge Time : 01/28/2025 11:15 EDT Discharge Level of Care at Discharge : Home/Detention/Foster Care Director Meetings Utilized : No AMA Form Signed : No Patient Left Unit Via : Wheelchair Patient Accompanied Off Unit with : Responsible adult DC Instructions Provided & Signed by Pt : Yes Patient Understands D/C Instructions : Yes Verbalized Understanding of D/C Plan By : Family, Patient, Responsible adult Patient Instructions Discharge Signed : Yes Did Pt have Specialty Bed or Wound Vac : No Gloria Corbett RN - 01/28/2025 11:40 EDT * Gloria Corbett RN: PERFORM Event Display: Patient Education/Instruction Authored Date: [id number] Surgery Adult Discharge Instructions [address] [address] Name: JURGEN ANTONIO : 1975?? Visit: 01/28/2025 07:07?? Current Date: 01/28/2025 10:48 ?? Account: [id number]?? Surgery Discharge Instructions We would like to thank you for allowing us to assist you with your healthcare needs. The following includes patient education materials and information regarding your injury/illness. Our entire staffstrives to provide an excellent experience for our patients and their families. PLEASE ENSURE YOU FOLLOW-UP PER THE INSTRUCTIONS BELOW! ?? YOUR OPINION IS IMPORTANT TO US! Please complete the survey you may receive by mail or email. Your feedback will be used to make improvements to the healthcare experiences of our patients and their families. Surveys are administered by [employer] ?? If further treatment with your primary care physician or another doctor is recommended, it is important for you to keep the appointment. Call your primary care physician or return to the Emergency Department immediately if your condition worsens, fails to improve, or new symptoms develop. If you need to find a doctor, you can call [facility] idio for a referral at [phone] or toll free at [phone] or log in to [email or web address].. ?? [facility] [employer], in keeping with [facility] guidance, no longer requires face masks for staff, patientsor visitors in most situations. Similiar to time spent indoors at other locations, there is the chance that you were exposed to repiratory viruses during your time with us (such as flu or COVID-19). If you develop symptoms concerning for a viral respiratory infection, please seek testing (and treatment if indicated) from your medical provider or home test kit. ?? You can view and manage your care through the patient portal or by using a health care marshal of your choosing. [email or web address] is a website that allows you to securely view your medical information including your hospital discharge summary, office visit summaries, medications and follow-up visits. You can also request appointments, renew medications, and request access to your medical information using a health care marshal of your choosing, or just ask a question. You are entitled to know the individuals who participated in your treatment. This information is available within your medical record and will be provided upon your request. You can enroll at [email or web address] or register d uring your next office visit. You have been discharged from [facility], Patient Care Unit: [facility]??. If you have any questions regarding these instructions after you leave, please call us and we will be happy to assist you. [facility] Your Care Team Attending Physician Ervin Armando MD, I?? Discharging Providers Ervin Armando MD, I Reason for Admission [facility] Primary Care Provider Graeme Ayala MD? Advance Directive Health Care Proxy on File No Patient refuses to discuss What to do next Instructions From Your Doctor ?? Orders?? Daystay Protocol, ??When Unit Discharge Criteria Met, ??01/28/25 10:13:00 EDT?? Instructions from your Care Team Call MD with any questions or concerns?? :?? [phone] Call MD with fever, excessive pain/swelling/bleeding/drainage May remove penile dressing tomorrow, & shower. No tub bath Apply Bacitracin ointment to surgical area 2X/day NO intercourse or masturbation until surgical area healed NO prescriptions. May take Tylenol & Ibuprofen for discomfort Make follow up appointment with surgeon for 1-2wks postop You Need to Schedule the Following Appointments Follow Up with??Ervin Armando Where: [address], [address] [facility] [place], [place] [id number]- Business (1) Follow Up with??Graeme Ayala When:??In 0 days Discharge Medications JURGEN ANTONIO :1975 Visit Date:01/28/2025 Medications: Please continue your medications until treatment is completed or stopped by your provider. You may resume your daily prescription medications. Discuss any questions related to medications with your provider. What How Much When Instructions Next Dose Unchanged Atorvastatin (atorvastatin 10 mg oral tablet) 1 tab(s) Oral Daily Unchanged dapagliflozin-metFORMIN (Xigduo XR 10 mg-1000 mg oral tablet, extended release) 1 tab(s) Oral Daily in the morning with food ?? Unchanged dulaglutide (Trulicity Pen 3 mg/ 0.5 mL subcutaneous solution) 0.5 Milliliter Subcutaneous Injection Every week rotate injection sites ?? Unchanged Fluoride Topical (fluoride 1.1% topical paste) 1 marshal Topically Daily at Bedtime do not swallow ?? Unchanged Lisinopril (lisinopril 20 mg oral tablet) 1 tab(s) Oral Daily Unchanged Metoclopramide (metoclopramide 5 mg oral tablet) 1 tab(s) Oral 3 times a day before meals and bedtime Unchanged Omeprazole (omeprazole 40 mg oral enteric coated capsule) 1 capsule Oral Twice a day Unchanged tadalafil (tadalafil 10 mg oral tablet) TAKE ONE TABLET BY MOUTH DAILY. STOP IF SIDE EFFECTS ARISES ?? Allergies (NKA means No Known Allergies) No Known Medication Allergies Education Materials Below is the list of Educational Leaflet Providered with your Discharge Instructions. Valuables and Belongings I fully understand and agree that [facility] accepts no responsibility for all my personal property including clothing, toilet articles, radios, jewelry, dentures, hearing aids, rings, money, or any other property that is in my possession or is brought to me after admission. I understand certain valuables may be placed in a hospital safe for a short period of time. I understand that the hospital is not liable for loss or damage due to accident, fire, or other natural occurrence while said property is in the safe. I accept full responsibility for any personal property that I keep with me, and will not hold the hospital responsible in case of loss or disappearance. I acknowledge that i have been encouraged to send valuables and belongings home. ?? Review of Valuable and Belonging List: With patient Date for Pt to Sign Valuables/Belongings: 01/28/25 08:02:00 ?? Valuables & Belongings ?? Clothes Electronic devices Jewelry Monetary Items Personal devices Miscellaneous Medications (Valuables) Valuables at Bedside Pants, Shirt, Shoes Cell phone ? Other: glucometer ? Valuables Sent Home ? Valuables Sent to Security ? Valuables Sent to Locker ? Other Discharge Information ? Pulmonary Rehab Status?? Pulmonary Rehab Discharge Status?? Respiratory Rate:??13 br/min??Low ? Common Emergency Awareness Tips IS IT A STROKE? Act FAST and Check for these signs: FACE Does the face look uneven? ARM Does one arm drift down? SPEECH Does their speech sound strange? TIME Call at any sign of stroke ?? Heart Attack Signs Chest discomfort: Most heart attacks involve discomfort in the center of the chest and lasts more than a few minutes, or goes away and comes back. It can feel like uncomfortable pressure, squeezing, fullness or pain. Discomfort in upper body: Symptoms can include pain or discomfort in one or both arms, back, neck, jaw or stomach. Shortness of breath: With or without discomfort. Other signs: Breaking out in a cold sweat, nausea, or lightheaded. Remember, MINUTES DO MATTER. If you experience any of these heart attack warning signs, call to get immediate medical attention! ?? Smoking can increase your chances of developing chronic health problems and can cause harmful effects to other family members in your house. If you smoke, you are strongly encouraged to quit. Please call [employer] at [phone] or [phone]) or log in to [email or web address] for referrals to smoking cessation programs. ?? The National Suicide Prevention Hotline is available 19/02 if you or someone you know needs to find a reason to keep living. By calling 3-735-119-dxhd (2798) you'll be connected to a skilled, trained counselor at a crisis center in your area. SURGERY DISCHARGE INSTRUCTIONS SIGNATURE PAGE JURGEN ANTONIO Location:[facility] Registration Date and Time:01/28/2025 07:07 EDT Primary Care Physician: Jamie GOMES, Graeme Burch, Attending Physician: Ervin Armando MD, I, I JURGEN ANTONIO, have received the above patient education materials/instructions and have verbalized understanding. If ambulance or transport services are being used I further acknowledge being given a choice of service. ?? If you need to contact me, please call me at this number: . Patient/Impregnator And Drier Name: Patient/Impregnator And Drier Signature: Relationship to Patient: Witness Name/Signature: Date: * Gloria Corbett RN: PERFORM, SIGN, VERIFY Event Display: Patient Education Handout Authored Date: [id number] * Gloria Corbett RN: PERFORM Event Display: Patient Education Leaflets Authored Date: [id number] Surgery Medical Daystay Surgical Overnight Discharge Instructions ?? 295 Medical Daystay/Surgical Overnight Discharge Instructions ? Since your coordination and judgment may be altered by medication and/or anesthesia, a responsible adult must drive you home from the hospital. ? If you have received medication for pain or sedation while under our care, you should not drive, operate machinery, drink alcohol, or sign any legal documents for 24 hours.?? You should have someone with you at home tonight. ? Remain at home the day of discharge.?? You may be up and about unless otherwise instructed by your physician. ? You may resume your daily prescription medication schedule.?? Any depressant medication should be avoided for 24 hours unless otherwise instructed by your surgeon or anesthesiologist. ? Call your physician for a follow-up appointment.? If you experience unusual or severe pain not relied by your pain medication, excessive bleedingor drainage, persistent nausea and vomiting, excessive swelling or redness, foul odor from incisionsite or fever over 100.6F, you need to call your physician. ? A follow-up phone call by a nurse will be made the day after your procedure.?? If you have stayed with us over night, you will not be receiving a follow-up phone call. ? Nausea and vomiting are a common side effect of prescription pain medication.?? We recommend that pills are not taken on an empty stomach.?? While taking any prescription pain medication you should not drive or drink alcohol. ? * Chelle CRUZ, Gloria: PERFORM Event Display: Patient Education Leaflets Authored Date: [id number] Surgery Medical Daystay Surgical Overnight Discharge Instructions ?? 295 Medical Daystay/Surgical Overnight Discharge Instructions ? Since your coordination and judgment may be altered by medication and/or anesthesia, a responsible adult must drive you home from the hospital. ? If you have received medication for pain or sedation while under our care, you should not drive, operate machinery, drink alcohol, or sign any legal documents for 24 hours.?? You should have someone with you at home tonight. ? Remain at home the day of discharge.?? You may be up and about unless otherwise instructed by your physician. ? You may resume your daily prescription medication schedule.?? Any depressant medication should be avoided for 24 hours unless otherwise instructed by your surgeon or anesthesiologist. ? Call your physician for a follow-up appointment.? If you experience unusual or severe pain not relied by your pain medication, excessive bleedingor drainage, persistent nausea and vomiting, excessive swelling or redness, foul odor from incisionsite or fever over 100.6F, you need to call your physician. ? A follow-up phone call by a nurse will be made the day after your procedure.?? If you have stayed with us over night, you will not be receiving a follow-up phone call. ? Nausea and vomiting are a common side effect of prescription pain medication.?? We recommend that pills are not taken on an empty stomach.?? While taking any prescription pain medication you should not drive or drink alcohol. ? * Chelle CRUZ, Gloria: PERFORM Event Display: Patient Education Leaflets Authored Date: [id number] NSAID Analgesic Schedule ?? 604 NSAID???s Analgesic Schedule ?? Pain is the primary source of illness following your procedure and can include dehydration, difficulty and painful swallowing, and weight loss. These symptoms can lead to increased post-operative visits and hospital readmission. The best way to control pain is to take pain medications regularly. Your doctor has recommended both Ibuprofen and Acetaminophen (generic/store brands are okay, too). These can be picked up over the counter at your pharmacy of choice. Follow the instructions on the bottle to determine the proper dosage to give. The simplest way to take these medications it to rotate the two at 3-hour intervals. Here is a sample diagram. The time you take your medications may vary from this example. Do not give Ibuprofen more than every 6 hours or Acetaminophen every 4 hours. Do not give Acetaminophen if your doctor has given you a prescription that contains Acetaminophen. ? Patient Care team information Care Team Personnel Name: Graeme Ayala MD Position: S Physician - Oncology Member Role: PCP Address: [address] [place] [address]- [place] [employer]: Insurance Providers Guarantor name: [employer] Health Plan Information #: 1 Payer: [employer] PPO Payer Identifier: NA Member Number: [id number] Group Number: [id number] Subscriber Identifier: [id number] Relationship to Subscriber: self Coverage Type: NA Coverage Verification Date: NA Telecom: Address:
--- NOTE | 2025-01-29 11:54 | MHC.OFFVIS ---
Vital Signs 01/29/25 12:02 Height 5 ft 7 in Weight 205 lb BMI 32.1 BP 111/66 Blood Pressure Location Lt brachial Position Sitting Pulse 78 Pulse Oximetry (%) 96 Oxygen Delivery Method Room Air Intake Visit Reasons: 6 months Mai's esophagus N/S last APPT Intake Note: Patient 6 months Mai's esophagus Patient denies any GI issues for today. 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 His GERD is also well controlled on omperazole 40mg bid. ROV 6 mos. Medications: Refilled metoclopramide HCl (Reglan) 5 mg PO .tidac 90 tabs 6RF E11.43 - Type 2 diabetes mellitus with diabetic autonomic (poly)neuropathy, K31.84 - Gastroparesis omeprazole Take 30 mins before meals 40 mg PO BID 180 caps 2RF 90 days K22.10 - Ulcer of esophagus without bleeding, K21.9 - Gastro-esophageal reflux disease without esophagitis TODAY'S VISIT His current GI regimen consists of Reglan 5 mg 3 times a day on omeprazole 40 mg twice a day. He continues to do very well having only 1 episode that he remembers of GERD one am ROV 6mos. [facility] Medical History (Updated 06/10/24 @ 13:15 by DYLAN Bateman) Pre-op examination Uncontrolled type 2 diabetes mellitus with hyperglycemia Hypertension GERD (gastroesophageal reflux disease) Elevated cholesterol Diabetes Surgical History H/O colonoscopy History of esophagogastroduodenoscopy (EGD) History of bladder endoscopy Hx of cholecystectomy History of ankle surgery Hx of knee surgery Family History Mother High blood pressure HX: breast cancer Father Diabetes Social History Alcohol intake: current Alcohol intake frequency: does not drink Patient Tobacco Use Status: Current everyday Tobacco user Tobacco use type: Cigarette Cigarette Packs Per Day: 0.5 Cigarettes Per Day: 10 Years Smoked: 28 Review of Systems Const Denies fatigue, Denies fever(s), Denies night sweats, Denies poor appetite and Denies weight loss ENT Reports Normal hearing present, Denies dental pain, Denies dysphagia, Denies hearing loss, Denies mouth pain, Denies odynophagia, Denies throat swelling, Denies tongue swelling and Reports other (Dentition adequate) Card Reports no additional complaints Resp Reports no additional complaints GI Details: Denies abdominal pain, Denies melena, Denies bloating, Denies hematochezia, Denies constipation, Denies GI cramping, Denies dysphagia, Denies excessive flatus, Reports early satiety, Reports heartburn, Denies diarrhea, Denies nausea, Denies odynophagia, Denies vomiting and Denies hematemesis Skin/Breast Denies pruritus, Denies lesions, Denies rash and Denies jaundice Neuro Reports Normal hearing present and Denies Abnormal speech present Endo Denies fatigue Aller/Immun Denies throat swelling and Denies tongue swelling Physical Exam Const General: cooperative, no acute distress, well developed and well groomed Nutritional Appearance: well nourished and overweight Orientation/consciousness: oriented to person, oriented to place and oriented to time Limitations: No language barrier HEENT Head: Yes normocephalic and Yes atraumatic Eyes General: appearance normal, both eyes and all related structures Pupils: Equal, round and reactive pupils present Neck Neck: Yes normal visual inspection and Yes no lymphadenopathy Thyroid: Thyroid normal Resp Effort & Inspection: normal respiratory effort and able to speak in complete sentences Auscultation: clear to auscultation bilaterally Cardio Rate: regular rate Rhythm: regular rhythm Heart sounds: Normal, physiologic split S2 sound present Peripheral pulses: radial pulses present and posterior tibial pulses present GI Inspection: No distended, No Abdominal panniculus present and Yes obesity Palpation (GI): Soft to palpation, nontender, no guarding, not rigid and No hepatosplenomegaly present Percussion: Yes normal to percussion Auscultation: normal bowel sounds Rectal Exam - Male: Yes deferred Skin General skin exam: no rashes or lesions noted, turgor normal, skin not dry, no jaundice, No spider nevi and no striae Rashes: no rashes Nails: normal Neuro General: oriented to person, oriented to place and oriented to time Cranial nerves: Yes Equal, round and reactive pupils present and Yes Normal hearing present Speech: No Abnormal speech present Extrem General: Yes normal to inspection, No clubbing, No cyanosis and No edema Psych Appearance: grossly normal and well kempt Mental Status: mental status grossly normal Speech and movement: Normal speech and movement present Affect: normal affect Attitude: cooperative Thought process: Normal thought process present and not confabulating Thought content: Normal thought content present Insight: Good insight present (Psych) Judgement: Good judgement present (Psych) Assessment & Plan Assessment & Plan (1) Diabetic gastroparesis: Code(s): E11.43 - Type 2 diabetes mellitus with diabetic autonomic (poly)neuropathy; K31.84 - Gastroparesis Category: Medical (2) GERD (gastroesophageal reflux disease): Code(s): K21.9 - Gastro-esophageal reflux disease without esophagitis Category: Medical (3) Erosive esophagitis: Code(s): K22.10 - Ulcer of esophagus without bleeding Category: Medical (4) Mai's 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 He continues to do very well having only 1 episode that he remembers of GERD one am ROV 6mos. Medications: Changed From metoclopramide HCl 5 mg PO TID 90 tabs 6RF E11.43 - Type 2 diabetes mellitus with diabetic autonomic (poly)neuropathy, K31.84 - Gastroparesis To metoclopramide HCl 5 mg PO TID 270 tabs 1RF 90 days E11.43 - Type 2 diabetes mellitus with diabetic autonomic (poly)neuropathy, K31.84 - Gastroparesis Refilled omeprazole Take 30 mins before meals 40 mg PO BID 180 caps 2RF 90 days K21.9 - Gastro-esophageal reflux disease without esophagitis, K22.10 - Ulcer of esophagus without bleeding Coding Level of Care Code Est Pt Level 3 (97706) Diagnoses Diabetic gastroparesis E11.43; K31.84 GERD (gastroesophageal reflux disease) K21.9 Erosive esophagitis K22.10 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
[2025-01-29 12:02] VITALS: BP 111/66; PULSE 78; O2SAT 96; BMI 32.1
--- OUTSIDE RECORDS SUMMARY | 2025-01-29 12:29 | XMS_ITS | Patient Health Record ---
[facility] Address [address] [place] [address] Care Team Providers Care Child Care Worker Name Role Phone Graeme Ayala MD Primary Care Provider UnavailMahad Shelby Unavailable [phone] Allergies No Known Allergies Reason For Referral No Information Medications Medication SIG (Take, Route, Frequency, Duration) Notes Start Date End Date Status Atorvastatin Calcium 10 MG 1 tablet Orally Active Ciclopirox Olamine 0.77 % APPLY TO AFFEC JUANJOSE AREA ON FEET TWICE A DAY; Duration: 30 Active Lisinopril 20 MG 1 tablet Orally Active Repaglinide 1.5MG Active Famotidine 80MG Active glyBURIDE 5 MG 1 tablet twice a day Active Xigduo XR 10-1000 MG 1 tablet Orally Onc e a day; Duration: 30 day(s) Active Tamsulosin HCl 0.4 MG 1 capsule Orally O nce a day; Duration: 30 day(s) Active Loratadine 10 MG 1 tablet Orally Once a day; Duration: 30 day(s) Active metFORMIN HCl 2000MG Rui baeza Social History Tobacco Use: Social History Observation Description Date Details (start date - stop date) Current Smoker NA - NA Tobacco Use/Smoking Question Answer Notes Are you a: current smoker Alcohol Screen Question Answer Notes Did you have a drink contain ing alcohol in the past year? Yes How often did you have a dri nk containing alcohol in the past year? Monthly or less (1 point) Points 1 Interpretation Negative Tobacco use other than smoking: Question Answer Notes Are you an other tobacco user? No Problems Problem Type SNOMED Code ICD Code Onset Dates Problem Status W/U Status Risk Notes Problem Type 2 diabetes mellitus with diabetic polyneuropathy (E11.42) Active confirmed Problem Polyneuropathy due to diabetes mellitus type I (178003824) Type 1 diabetes mellitus with diabetic polyneuropathy (E10.42) Active confirmed Plan Of Treatment Pending Test Test Name Order Date [id number] NAIL, 6 OR MORE 03/17/2022 [id number] SKIN LESIONS, 2 TO 4 12/10/19 22 Insurance Providers Payer Name Payer Address Payer Phone Subscriber Number Group Number Insured Name Patient Relationship to Insured Coverage Start Date Coverage End Date [facility] [address] [place] [address] [id number] Terry Rizo Self - patient is the insured Medical (General) History Medical History History ICD Code Back,Hip,and Knee pain Diabetic High blood pressure Chicken pox Surgical History Surgery Date(Month/Year) Meniscus repair 06/1998 ankle surgery 07/1999 gall bladder 04/2006
--- OUTSIDE RECORDS SUMMARY | 2025-01-29 12:29 | XMS_ITS | Clinical Summary ---
Author Organization [employer] Address [address] [place] [address] Care Team Providers Care Equipment Operating Engineer Name Role Phone Unavailable Primary Care Provider Unavailabl e Allergies No known active allergies Medications atorvastatin (Lipitor) 10 MG tablet TAKE 1 TABLET BY MOUTH EVERY DAY FOR 90 DAYS 10/23/2022 Active ciclopirox (Loprox) 0.77 % cream Active dapagliflozin-m etFORMIN ER (Xigduo XR) 10-1000 MG daily. 03/03/2022 Active dulaglutide (Trulicity) 1.5 MG/0.5ML solution pen-injector INJECT 1 PEN EVERY WEEK Active lisinopril 20 MG tablet Take 1 tablet by mouth in the morning. Active metoclopramide (Reglan) 5 MG tablet 01/08/2023 Active omeprazole (PriLOSEC) [address] capsule Take 1 capsule by mouth 2 times daily. Active tadalafil (Cialis) 5 MG tablet daily. Active tadalafil (Cialis) 5 MG tablet 1 tablet in the morning. Active omeprazole (PriLOSEC) [address] capsule Take 2 capsules by mouth at bed time. Active loratadine (Claritin) 10 MG tablet Take 1 tablet by mouth at bed time. Active atorvastatin (Lipitor) 20 MG tablet Take 1 tablet by mouth at bed time. Active Dulaglutide (Trulicity) 3 MG/0.5ML solution auto-injector Inject under the skin. Active tadalafil (Cialis) 10 MG tablet Take 10 mg by mouth if needed each day for erectile dysfunction. Active Sodium Fluoride (PreviDent 5000 Booster Plus) 1.1 % paste Apply 1 Application. to teeth 2 times daily. 112 g 3 12/15/2024 Active Active Problems Problem Noted Date Diagnosed Date Fractured dental protestant with loss of materi al 11/26/2024 Gingival bleeding 11/26/2024 Acute gingival inflammation 11/26/2024 Localized gingival recession, minimal 10/04/2023 Dental calculus 04/03/2023 Periodontal disease 04/03/2023 Encounters Date Type Department Care Team Description 12/15/2024 10:00 AM EDT Office Visit [facility] [address] [place] [address] Scottie Suarez DMD 11/26/2024 10:00 AM EDT Office Visit [facility] [address] [place] [address] Frannie Freed Fractured dental protestant with loss of material (Primary Dx); Gingival bleeding; Acute gingival inflammation; Periodontal disease; Dental calculus 11/25/2024 Travel from Last 3 Months Social History Tobacco Use Types Packs/Day Years Used Date Smoking Tobacco: Every Day Cigarettes Passive Smoke Exposure: Current Smokeless Tobacco: Never Tobacco Cessation:Ready to Q uit: Not Asked; Counseling Given: Not Answered Alcohol Use Standard Drinks/Week Comments Defer 0 (1 standard drink = 0.6 oz pur e alcohol) Sex and Gender Information Value Date Recorded Sex Assigned at Male 05/29/2022 10:25 AM EDT Legal Sex Male 10:25 AM EDT Gender Identity Male 05/29/2022 10:25 AM EDT Sexual Orientation Straight 05/29/2022 10 :25 AM EDT Last Filed Vital Signs Vital Sign Reading Time Taken Comments Blood Pressure 132/80 12/15/2024 10:08 AM EDT Pulse 74 12/15/2024 10:08 AM EDT Temperature - - Respiratory Rate - - Oxygen Saturation - - Inhaled Oxygen Concentration - - Weight - - Height - - Body Mass Index - - Plan of Treatment Upcoming Encounters Date Type Department Care Team (Late st Contact Info) Description 06/29/2025 10:00 AM EST Office Visit [facility] [address] [place] [address] Frannie Freed [address] [place] [address] Health Maintenance Due Date Last Done Comments CT Colonography 1976 Colonoscopy 1976 Colorectal Cancer Screening 1976 Depression Screening 1976 FIT DNA/Cologuard 1976 FIT 1976 FOBT 1976 HIV Screening 1976 Lipid Panel 1976 SDOH Screening 1976 Sigmoidoscopy 1976 Disability Screening 1976 Alcohol/Substance Use Screening 1988 Family Planning (PISQ) 1991 Hepatitis C Screening 1994 Hepatitis B Vaccines (1 of 3 - 19+ 3-dose series) 1995 Pneumococcal Vaccine: Pediatrics (0 to 5 Years) and At-Risk Patients (6 to 49) Years (2 of 2 - PCV) 07/18/2017 07/18/2016 COVID-19 Vaccine ( season) 2024 05/23/2021, 10/22/2020, 09/24/2020 Dental Oral Exam 05/29/2025 11/26/2024, 01/2024, 01/08/2023, Additional history exists Dental Prophylaxis 05/29/2025 11/26/2024, 0 10/04/2023, 01/08/2023, Additional history exists Dental X-Ray: Bitewings 11/27/2025 11/27/19, 01/08/2023, 10/28/2021, Additional history exists Tobacco Screening 12/15/2025 12/15/2024 DTaP/Tdap/Td Vaccines (2 - Tdap) 07/18/2026 07/18/2016 Zoster Vaccines (1 of 2) 2026 Dental X-Ray: Full Mouth 10/29/2026 10/28/2021, 04/29 Postponed from 10/29/2024 (Insurance / Financial) RSV Patients and Patients Aged 60 years or older (1 - 1-dose 75+ series) 2051 Influenza Vaccine Completed 06/22/2024, , 05/24/2022, Additional history exists HIB Vaccines Aged Out No longer eligi ble based on patient's age to complete this topic HPV Vaccines Aged Out No longer eligi ble based on patient's age to complete this topic Hepatitis A Vaccines Aged Out No long er eligible based on patient's age to complete this topic IPV Vaccines Aged Out No longer eligi ble based on patient's age to complete this topic Meningococcal B Vaccine Aged Out No l onger eligible based on patient's age to complete this topic Meningococcal Vaccine Aged Out No prema shania eligible based on patient's age to complete this topic RSV under 20 months Aged Out No longe r eligible based on patient's age to complete this topic Rotavirus Vaccines Aged Out No longer eligible based on patient's age to complete this topic Procedures Procedure Name Priority Date/Time Associated Diagnosis Comments CASE PRESENTATION, DETAILED AND EXTENSIVE TREATMENT PLANNING Routine 12/15/2024 10:00 AM EDT 9 MIFL RESIN-BASED COMPOSITE - 4 OR MORE SURFACES (ANTERIOR) Routine 12/15/2024 10:00 AM EDT 7 MF(V) RESIN-BASED COMPOSITE - 2 SURF, ANTERIOR Routine 12/15/2024 10:00 AM EDT 5 RESIN-BASED COMPOSITE - 3 SURF, POSTERIOR Routine 12/15/2024 10:00 AM EDT PERIODIC ORAL EVALUATION - ESTABLISHED PATIENT Routine 11/26/2024 10:00 AM EDT INTRAORAL - PERIAPICAL EACH ADDITIONAL RADIOGRAPHIC IMAGE Routine 11/26/2024 10:00 AM EDT Fractured dental protestant with loss of material Gingival bleeding Acute gingival inflammation Periodontal disease Dental calculus INTRAORAL - PERIAPICAL EACH ADDITIONAL RADIOGRAPHIC IMAGE Routine 11/26/2024 10:00 AM EDT Fractured dental protestant with loss of material Gingival bleeding Acute gingival inflammation Periodontal disease Dental calculus INTRAORAL - PERIAPICAL FIRST RADIOGRAPHIC IMAGE Routine 11/26/2024 10:00 AM EDT Fractured dental protestant with loss of material Gingival bleeding Acute gingival inflammation Periodontal disease Dental calculus BITEWINGS - 4 RADIOGRAPHIC IMAGES Routine 11/26/2024 10:00 AM EDT Fractured dental protestant with loss of material Gingival bleeding Acute gingival inflammation Periodontal disease Dental calculus ORAL HYGIENE INSTRUCTIONS Routine 11/26/2024 10:00 AM EDT Fractured dental protestant with loss of material Gingival bleeding Acute gingival inflammation Periodontal disease Dental calculus Full PROPHYLAXIS - ADULT Routine 025 10:00 AM EDT Acute gingival inflammation Periodontal disease Dental calculus INTRAORAL - COMPLETE SERIES OF RADIOGRAPHIC IMAGES Routine 10/28/2021 12:00 AM EDT from Last 3 Months or Most Recently Relevant to Health Maintenance Insurance DENTAL - [employer] PPO
== END 2025-01-29 12:19 | disposition home or self-care (01) ==
LOC: HO.HGI 11:52
PROVIDERS: PCP Internal Medicine Medical Oncology; Visit Provider Nurse Practitioner
DX: E11.43 Type 2 diabetes mellitus with diabetic autonomic (poly)neuropathy (principal); K31.84 Gastroparesis; K21.9 Gastro-esophageal reflux disease without esophagitis; K22.10 Ulcer of esophagus without bleeding; K22.70 Barrett's esophagus without dysplasia; K29.60 Other gastritis without bleeding
CPT/HCPCS: 99213

== ENCOUNTER 2025-03-20 10:34 | Outpatient (REF) | payer BC, SELFPAY ==
--- OUTSIDE RECORDS SUMMARY | 2017-07-18 07:09 | XMS_ITS | Continuity of Care Document ---
Author Name [facility] Organization [facility] Care Team Providers Care Leasing Specialist Name Role Phone [facility] Unavailable Unavailable Problems Combined list of problems from Department of Defense and Veterans Affairs facilities. It does not include entries that were removed or entered in error. Problem Status Onset Date Problem Type Date of Resolution Comments Source Ankle joint pain Active Condition Jul 18, 2016 Entered By: VINCENT ANGELES Comment: GR II -II Sprain, R Ankle (ATF Lig?)Jul 18, 2016 Entered By: VINCENT ANGELES Comment: Attributed to Service [place] Care by local physician Active Condition Jul 18, 2016 Entered By: VINCENT ANGELES Comment: Private PCP: none, but goes to [facility] [place] History of cholecystectomy Active Condition Jul 18, 2016 Entered By: VINCENT ANGELES Comment: Cholecystectomy 2014 ([place]); Reason: Lithiasis [place] Hyperglycemia Active Condition [facility] Knee pain (SNOMED CT [id number]) Active Condition Jul 18, 2016 Entered By: VINCENT ANGELES Comment: Arthroscopy, R Knee 1997 in ; Partial Meniscectomy [place] Multiple environmental allergies Active Condition [place] Pure [facility]cholesterolemia [facility] Medications Combined list of outpatient medications from Department of Defense and Veterans Affairs facilities.Medications provided include 1) outpatient medications from the last 15 months, and 2) patient-reported medications. Medication Details Route Status Patient Instructions Prescription Expires Prescription Number Last Dispense Date Ordering Provider Order Date Order Qty Source LORATADINE 10MG TAB TAKE ONE TABLET BY MOUTH EVERY DAY ORAL ACTIVE TIRSO ANGELES 2015 [place] Immunizations Combined list of available immunizations from the Department of Defense and Veterans Affairs facilities. Immunization Series Date Given Administered By Site Reaction Lot Number CVX Code Drug Corner Trimmer Operator Status Comments Source INFLUENZA, SEASONAL, INJECTABLE 2016 141 complet ed Site: Left Deltoid [place] DTAP 2015 20 complet ed Site: Left Deltoid [place] PNEUMOCOCCAL POLYSACCHARID E PPV23 2015 33 complet ed [place] FLU,3 YRS (HISTORICAL) 2015 88 complet ed [facility] [place] [facility] Social History Combined list of available smoking, tobacco, and other social history from Department of Defense and Veterans Affairs facilities. Social History Type Response Date Comment Sour e Tobacco smoking status NHIS CURRENT SMOKER 07/18/2017 cutting down [place] History of tobacco use CURRENT SMOKER 05/18/2017 try to stop; quit on own [place] History of tobacco use CURRENT SMOKER 07/18/2016 [place]
--- OUTSIDE RECORDS SUMMARY | 2024-10-29 06:45 | XMS_ITS ---
Author Organization Graeme Ayala III, MD Address [address] [facility] [place] [place] [address] Care Team Providers Care Sustainability Purchasing Agent Name Role Phone Graeme Ayala Primary Care Provider Allergies Allergen (clinical drug ingredient) Drug/Non Drug Allergy documented on EMR Reaction Allergy Type Onset Date Status No Known Drug Allergy Unknown Drug Allergy Active REASON FOR VISIT Diabetes, Retention, Tobacco dependence, Obesity, Benign prostatic hypertrophy Medications Medication SIG (Take, Route, Frequency, Duration) Notes Start Date End Date Status Lisinopril 20 MG TAKE 1 TABLET BY DAVID TH EVERY DAY Orally Once a day [...] Date Provider Diagnosis Graeme Ayala III, MD [address] [place] [address] [place] [id number] 10/29/2024 Graeme Ayala Obesity, mild E66.9 ; [...] all of the local hospitals and the [employer] [place] [employer]. 10/29/2024 History of strabismus (ICD-10 - Z86.69) He reports no change in his vision. 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 10/29/2024 BPH (benign prostatic hyperplasia) (ICD-10 - N40.0) He arises from sleep once a night on the average. We discussed lifestyle modification as a way of reducing nocturia. Plan Of Treatment Medication Medication Name Sig Start Date Stop Date Notes Lisinopril 20 MG TAKE 1 TABLET BY DAVID EVERY DAY Orally Once a day Xigduo XR 10-1000 MG TAKE 1 TABLET BY [facility] EVERY DAY Trulicity 3 MG/0.5ML 1 PEN Subcutaneous Once a week Ciclopirox Olamine 0.77 % External Metoclopramide HCl 5 MG TAKE 1 TABLET BY MOUTH 4 TIMES A DAY BEFORE MEAL/BED Oral Atorvastatin Calcium 10 MG TAKE 1 TABLET BY MOUTH EVERY DAY Tadalafil 5 MG 1 tablet as needed O rally Once a day Omeprazole 40 MG TAKE 1 CAPSULE BY [facility] TWICE A DAY Oral Pending Test Test Name Order Date PROFILE, FASTING (COMPREHENSIVE METABOLI C) 10/29/2024 CBC w DIFF 10/29/2024 Lipid Panel 10/29/2024 Microalbumin, Random 10/29/2024 Hemoglobin A1c 10/29/2024 Next Appt Details Follow Up: As Scheduled, Laurel son: Annual Exam Provider Name:Graeme Ayala, 03/24/2025 09:30:00 AM, [address] [place] [address], [id number], Progress Notes * PACO DIONOB:1975 (49 yo M)Acc No.[id number]:10/29/2024 Progress Notes Patient: JURGEN CORDOBA Provider: Venita Ayala MD :1975 A ge:49 Y S ex:Male Date:10/29/2024 Address:[address] [place], [place] [id number] Subjective: * Chief Complaints: * D iabetesRetentionTobacco [...] is autistic. 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 * [...] all of the local hospitals and the [employer] [place] [employer]. 5 . H istory of strabismus - Z86.69 N otes :He reports no change in his vision. 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 6 . B PH (benign prostatic hyperplasia) [...] 0 10/29/2024 Generated for Fide ac/Anna/eTransmitting on: 03/20/2025 10:38 AM EDT History and Physical Notes * Examination [...]
--- OUTSIDE RECORDS SUMMARY | 2025-03-20 10:39 | XMS_ITS | Clinical Summary ---
Author Organization [employer] Address [address] [place] [address] Care Team Providers Care Care Attendant Name Role Phone Unavailable Primary Care Provider [...] Problem Noted Date Diagnosed Date Fractured dental zoroastrian with loss of materi al 11/26/2024 Gingival bleeding 11/26/2024 Acute gingival inflammation 11/26/2024 Localized gingival recession, minimal 10/04/2023 Dental calculus 04/03/2023 Periodontal disease 04/03/2023 Social History Tobacco Use Types Packs/Day Years [...] Description 06/29/2025 10:00 AM EST Office Visit [facility] [address] [place] [address] [place], Frannie [address] [place] [address] Health Maintenance Due Date Last Done Comments [...] 2 - PCV) 07/18/2017 07/18/2016 COVID-19 Vaccine (4 - season) 2024 05/23/2021, 10/22/2020, 09/24/2020 Influenza Vaccine (#1) 2025 , 05/11/2023, 05/24/2022, Additional history exists Dental Oral Exam 05/29/2025 11/26/2024, 01/2024, 01/08/2023, [...] older (1 - 1-dose 75+ series) 2051 HIB Vaccines Aged Out No longer eligi [...] Procedure Name Priority Date/Time Associated Diagnosis Comments Full PROPHYLAXIS - ADULT Routine 025 10:00 AM EDT Acute gingival inflammation Periodontal disease Dental calculus BITEWINGS - 4 RADIOGRAPHIC IMAGES Routine 11/26/2024 10:00 AM EDT Fractured dental zoroastrian with loss of material Gingival bleeding Acute gingival inflammation Periodontal disease Dental calculus PERIODIC ORAL EVALUATION - ESTABLISHED PATIENT Routine 11/26/2024 10:00 AM EDT INTRAORAL - COMPLETE SERIES OF RADIOGRAPHIC IMAGES Routine 10/28/2021 12:00 AM EDT from Last 3 Months or Most Recently Relevant to Health Maintenance [facility]
--- OUTSIDE RECORDS SUMMARY | 2025-03-20 10:39 | XMS_ITS | Patient Health Record ---
[facility] Address [address] [address] Care Team Providers Care Snipper Name Role Phone Graeme Ayala MD Primary Care Provider Mahad Aragon Unavailable [phone] Allergies No Known Allergies Reason For Referral [...] Problem Status W/U Status Risk Notes Problem Polyneuropathy due to type 2 diabetes mellitus (677555956) Type 2 diabetes mellitus with diabetic polyneuropathy (E11.42) Active confirmed Problem Polyneuropathy due to diabetes mellitus type I (905900113) Type 1 diabetes mellitus with diabetic polyneuropathy (E10.42) Active confirmed Plan Of Treatment Pending Test Test Name Order Date [id number] NAIL, 6 OR MORE 03/17/2022 [id number] SKIN LESIONS, 2 TO 4 12/10/19 22 Insurance Providers Payer Name Payer Address Payer Phone Subscriber Number Group Number Insured Name Patient Relationship to Insured Coverage Start Date Coverage End Date [facility] [address] [place] [address] [phone] [id number] Terry Rizo Self - patient is the insured Medical (General) History Medical History History ICD Code Back,Hip,and Knee pain Diabetic High blood pressure Chicken pox Surgical History Surgery Date(Month/Year) Meniscus repair 06/1998 ankle surgery 07/1999 gall bladder 04/2006
[2025-03-20 11:00] LABS: MANUAL DIFF FLAG NO
[2025-03-20 11:30] LABS: Hematocrit 49.7 % (42.0-52.0); Hemoglobin 17.1 g/dl (14.0-18.0); Imm Gran Abs Auto 0.02 X10*3/uL (0.00-0.03); Imm Gran Pct Auto 0.4 % (0.0-0.4); Lymphocytes Absolute Auto 1.6 X10*3/uL (1.2-4.9); Mean Corpuscular HGB Conc 34.4 g/dl (31.0-36.0); Mean Corpuscular Hemoglobin 28.5 pg (27.0-33.0); Mean Corpuscular Volume 82.8 fL (80.0-98.0); NRBC Abs Auto 0.000 X10*3/uL (0.0-0.012); NRBC Pct Auto 0.0 /100WBC (0.0-0.2); Platelet Count 218 X10*3/uL (160-400); Red Blood Count 6.00 X10*6/uL (4.60-5.80); White Blood Count 5.2 X10*3/uL (4.8-10.8)
[2025-03-20 12:00] LABS: Hemoglobin A1C 206.0995 umol/L; Total Hemoglobin (HGBA1C) 4387.3455 umol/L
[2025-03-20 12:13] LABS: Alanine Aminotransferase 42 U/L (0-40); Albumin Level 4.8 g/dL (3.5-5.0); Alkaline Phosphatase 89 U/L (39-117); Anion Gap 12 (12-20); Aspartate Amino Transferase 31 U/L (5-37); Blood Urea Nitrogen 18 mg/dL (9-16); Calcium 9.4 mg/dL (8.4-10.2); Carbon Dioxide 21 mmol/L (22-29); Chloride 110 mmol/L (96-108); Cholesterol 171 mg/dL (<200); Estimated Glomerular Filt Rate > 60; HDL Cholesterol 30 mg/dL (>40); Potassium 4.0 mmol/L (3.3-5.1); Sodium 139 mmol/L (135-145); Total Protein 7.1 g/dL (6.5-8.0); Triglycerides 161 mg/dL (<150)
[2025-03-20 12:29] LABS: Microalbum/Creatinine Ratio Ur 4.8 ug/mg cr (<30)
== END 2025-03-20 10:35 | disposition home or self-care (01) ==
LOC: HO.LAB 10:34
PROVIDERS: PCP Internal Medicine Medical Oncology; Visit Provider Internal Medicine Medical Oncology
DX: E11.9 Type 2 diabetes mellitus without complications (principal); E66.9 Obesity, unspecified; I10 Essential (primary) hypertension
CPT/HCPCS: 36415; 80053; 80061; 82043; 82570; 83036; 85025

== ENCOUNTER 2025-06-22 10:23 | Outpatient (REF) | payer BC, SELFPAY ==
[2025-06-22 10:36] LABS: MANUAL DIFF FLAG NO
[2025-06-22 10:56] LABS: Hematocrit 52.1 % (42.0-52.0); Hemoglobin 17.1 g/dl (14.0-18.0); Imm Gran Abs Auto 0.01 X10*3/uL (0.00-0.03); Imm Gran Pct Auto 0.2 % (0.0-0.4); Lymphocytes Absolute Auto 1.8 X10*3/uL (1.2-4.9); Mean Corpuscular HGB Conc 32.8 g/dl (31.0-36.0); Mean Corpuscular Hemoglobin 28.1 pg (27.0-33.0); Mean Corpuscular Volume 85.6 fL (80.0-98.0); NRBC Abs Auto 0.000 X10*3/uL (0.0-0.012); NRBC Pct Auto 0.0 /100WBC (0.0-0.2); Platelet Count 218 X10*3/uL (160-400); Red Blood Count 6.09 X10*6/uL (4.60-5.80); White Blood Count 5.8 X10*3/uL (4.8-10.8)
[2025-06-22 12:16] LABS: Prostate Specific Antigen 1.08 ng/mL (<0.05-4.0)
[2025-06-22 15:17] LABS: Alanine Aminotransferase 31 U/L (0-40); Albumin Level 4.7 g/dL (3.5-5.0); Alkaline Phosphatase 85 U/L (39-117); Anion Gap 12 (12-20); Aspartate Amino Transferase 31 U/L (5-37); Blood Urea Nitrogen 18 mg/dL (9-16); Calcium 9.4 mg/dL (8.4-10.2); Carbon Dioxide 22 mmol/L (22-29); Chloride 111 mmol/L (96-108); Cholesterol 155 mg/dL (<200); Estimated Glomerular Filt Rate > 60; HDL Cholesterol 35 mg/dL (>40); Potassium 4.0 mmol/L (3.3-5.1); Sodium 141 mmol/L (135-145); Total Protein 7.0 g/dL (6.5-8.0); Triglycerides 169 mg/dL (<150)
== END 2025-06-22 10:24 | disposition home or self-care (01) ==
LOC: HO.LAB 10:23
PROVIDERS: PCP Internal Medicine Medical Oncology; Visit Provider Internal Medicine Medical Oncology
DX: E11.9 Type 2 diabetes mellitus without complications (principal); N52.9 Male erectile dysfunction, unspecified; E66.9 Obesity, unspecified; Z12.5 Encounter for screening for malignant neoplasm of prostate
CPT/HCPCS: 36415; 80053; 80061; 83036; 84153; 85025